=== PATIENT | female | born 2000 | race Caucasian/White ===

== ENCOUNTER 2022-01-16 16:09 | Outpatient (CLI) | payer BC, SELFPAY ==
--- NOTE | ~2022-01-16 | US_ITS ---
EXAMINATION: US OB /maternal detail DATE: 01/16/2022 17:11 INDICATION: Second trimester anatomic survey TECHNIQUE: Real-time ultrasound of the pelvis was performed. COMPARISON: None. FINDINGS: There is a single living fetus in breech presentation. The placenta is posterior. heart rate is 165 beats per minute (bpm). cardiac activity and movement are noted. The amniotic fluid index is subjectively normal. The following anatomy was identified as normal: 4 chamber heart 3 vessel cord cord insertion kidneys urinary bladder stomach spine diaphragm ventricles cisterna magna cerebellum The following biometric data were obtained: Biparietal diameter (BPD): 4.0 cm; head circumference (HC): 15.0 cm; abdominal circumference (AC): 13 .0 cm; femur length (FL): 2.7 cm. These measurements are concordant. Estimated weight is 239 g +/- 35 g, which correlates with the 5th percentile when 06/08/2022 is used as estimated date of delivery. As single measurements, these parameters are each equal to the following estimated gestational ages w ith ranges of +/- 2 standard deviations: BPD: 18 weeks 1 days +/- 1 weeks 1 days. HC: 18 weeks 1 days +/- 1 weeks 3 days. AC: 18 weeks 4 days +/- 2 weeks 0 days. FL: 18 weeks 3 days +/- 1 weeks 6 days. estimated gestational age based solely on measurements from this exam is 18 weeks 2 days +/- 1 weeks 2 days. IMPRESSION: 1. Single living fetus in breech presentation. 2. Estimated weight is 239 g +/- 35 g, which correlates with the 5th percentile when 06/08/2022 is used as estimated date of delivery. Reviewed, dictated and finalized at location F. IMPRESSION: 1. Single living fetus in breech presentation. 2. Estimated weight is 239 g +/- 35 g, which correlates with the 5th perc entile when 06/08/2022 is used as estimated date of delivery.
== END 2022-01-16 16:10 | disposition home or self-care (01) ==
PROVIDERS: PCP Obstetrics & Gynecology Gynecologic Oncology; Visit Provider Obstetrics & Gynecology Gynecologic Oncology
DX: Z36.9 Encounter for antenatal screening, unspecified (principal)
CPT/HCPCS: 76805

== ENCOUNTER 2023-12-05 10:07 | Emergency (ER) | payer BC, SELFPAY ==
[2023-12-05 10:29] VITALS: BP 111/69; PULSE 113; RESP 18; TEMP 36.4; O2SAT 99
--- NOTE | 2023-12-05 10:40 | ED.URI ---
HPI - URI/Sore Throat General Chief Complaint: Upper Respiratory Infection Stated Complaint: sorethroat,congestion Source: patient Mode of arrival: ambulatory Limitations: no limitations History of Present Illness HPI Narrative: 23-year-old female presents to [facility] with complaints of sore throat, bilateral ear pressure, nasal congestion and dry cough for the past 2 days. Patient has been taking [id number] allergy medication, cold medications and Tylenol with minimal relief. Patient reports that her daughter was recently diagnosed with influenza and an ear infection and was being treated with steroids and an antibiotic. Patient is a nonsmoker. Patient denies recent travel. Patient denies fever, body aches, chills, nausea vomiting or diarrhea. MD elicited complaint: cough, sore throat and nasal congestion Onset (ago): day(s) (2) Exacerbating factors: nothing Relieving factors: nothing Context: sick contacts Treatments prior to arrival: cold medicine Related Data Home Medications Medication Instructions Recorded Confirmed norethindrone 1 mg-ethinyl tablet 12/05/23 estradiol 20 mcg (21)-iron 75 mg (7) tablet ([place] Fe 08/15 (28)) Allergies Allergy/AdvReac Type Severity Reaction Status Date / Time Penicillins Allergy Rash Verified 12/05/23 10:25 Review of Systems Constitutional: Constitutional: Denies body ache(s), Denies chills, Denies fatigue and Denies fever(s) ENT: Denies vertigo, Denies dizziness, Denies ear discharge, Reports otalgia, Denies headache(s), Reports nasal congestion and Denies nasal discharge Cardiovascular: Cardiovascular: Denies chest pain Respiratory: Respiratory: Denies chest congestion, Reports cough, Denies pain on inspiration, Denies pain with cough and Denies dyspnea Gastrointestinal: Gastrointestinal: Denies heartburn, Denies nausea and Denies vomiting Integumentary/Breasts: Skin/Breast: Denies pruritus Allergic/Immunologic: Allergic/Immunologic: Denies urticaria, Denies itchy eyes, Denies lip swelling and Denies throat swelling PMFSH Comments At time of signature, I agree with nursing past medical, surgical, social and family history. There is no relevant family history pertinent to the presenting complaint. Exam Const: General: cooperative, healthy appearing, comfortable, no acute distress, well developed and alert HENMT: Head: normal to inspection Ears: hearing grossly normal bilaterally, external ears normal and TM's normal bilaterally Face/Nose/Sinus: Normal external nose present, No nasal discharge present and Other nasal findings present (Moderate bilateral nasal congestion) Face and sinus: normal facial exam Mouth: Yes Normal oral and palatal mucosa present and Yes lip normal Teeth and gingiva: dentition normal Throat: posterior oropharynx normal and uvula midline Eyes: General: appearance normal, both eyes and all related structures Neck: Neck: normal visual inspection, full ROM and no lymphadenopathy Lymphatic: no lymphadenopathy noted Resp: Effort & Inspection: normal respiratory effort, able to speak in complete sentences, normal respiratory pattern, no audible wheezes, no cough and respiratory effort not decreased Auscultation: clear to auscultation bilaterally Cardio: Jugular venous distension: no JVD Rate: regular rate Rhythm: regular rhythm Skin: General skin exam: normal color and no rashes or lesions noted Neuro: General: oriented to person, gait normal and moves all extremities Extrem: General: normal to inspection and full ROM Psych: Appearance: grossly normal and well kempt Mental Status: mental status grossly normal Speech and movement: Normal speech and movement present Affect: normal affect Attitude: cooperative Thought process: Normal thought process present Course Course Level of Care: Express Care Visit Vital Signs Vital signs: Vital Signs Temperature 36.4 C 12/05/23 10:29 Pulse Rate 113 H 12/05/23 10:29
== END 2023-12-05 10:50 | disposition home or self-care (01) ==
PROVIDERS: Emergency Provider Nurse Practitioner Family
DX: J06.9 Acute upper respiratory infection, unspecified (principal)
CPT/HCPCS: 87081; 87880; 99213; G0463

== ENCOUNTER 2025-02-28 12:35 | Emergency (ER) | payer BC, SELFPAY ==
[2025-02-28] VITALS (7 sets, daily range): BP systolic 117–136; BP diastolic 84–93; PULSE 62–136; RESP 15–26; TEMP 36.8; O2SAT 17–100
--- NOTE | ~2025-02-28 | US_ITS ---
EXAMINATION: US pelvic complete INDICATION: 2 weeks. Vaginal bleeding. Evaluate for retained products of conception. Comparison:No prior studies for comparison. TECHNIQUE: Multiple transabdominal and endovaginal sonographic images of the pelvis performed. FINDINGS: The uterus measures 11.1 x 5.3 x 7 cm. The endometrial complex measures 24 mm. Endometrium is thickened and heterogeneous. There is internal vascularity. The right ovary is not visualized. Left ovary unremarkable measuring 3 x 2.1 x 2.6 cm. There is no free fluid in the pelvis. There are no abnormal masses seen on either side. IMPRESSION: 1. Thickened heterogeneous endometrium with internal vascularity measuring 2.4 cm, compatible with re tained products of conception. Reviewed, dictated and finalized at location A. IMPRESSION: 1. Thickened heterogeneous endometrium with internal vascularity measuring 2.4 cm, compatible with retained products of conception.
--- OUTSIDE RECORDS SUMMARY | 2025-02-28 12:40 | XMS_ITS | Encounter Summary ---
Author Organization [facility] Healthcare Address [address] [place] [address] Care Team Providers Care Photography Editor Name Role Phone Mehreen Saleem NP Primary Care Provider [phone] Encounter Details Date Type Department Care Team (Latest Contact Info) Description 01/27/2025 Results Follow-Up [facility] [address] [place] [id number] Jorge L Black MD [phone] [address] Group B streptococcal culture Vaginal/Rectal Vaginal Social History Tobacco Use Types Packs/Day Years Used Date Smoking Tobacco: Never Smokeless Tobacco: Never [facility] Utilities Answer Date Recorded In the past 12 months has [employer] electric, gas, oil, or water company threatened to shut off services in your home? No 01/25/2025 Social Connection and Isolat ion Panel [NHANES] Answer Date Recorded In a typical week, how many times do you talk on the phone with family, friends, or neighbors? More than three times a week 01/25/2025 How often do you get togethe r with friends or relatives? More than three times a week 01/25/2025 How often do you attend chur ch or jew services? Never 01/25/2025 Do you belong to any clubs o r organizations such as baptist groups, unions, fraternal or athletic groups, or school groups? No 01/25/2025 How often do you attend meet ings of the clubs or organizations you belong to? Never 01/25/2025 Are you , , di vorced, , never , or living with a partner? 01/25/2025 Overall Financial Resource Strain (CARDIA) Answe r Date Recorded How hard is it for you to pa y for the very basics like food, housing, medical care, and heating? Not hard at all 01/25/2025 PHQ-2 Answer Date Recorded PHQ-2 Total Score (If total score is 3 or more points, staff should administer the PHQ-9) 0 01/24/2025 [facility] - Occupational Stress Questionnaire Answer Date Recorded Do you feel stress - tense, restless, nervous, or anxious, or unable to sleep at night because your mind is troubled all the time - these days? To some extent 07/04/2024 Hunger Vital Sign Answer Date Recorded Within the past 12 months, y ou worried that your food would run out before you got the money to buy more. Never true 01/26/20 25 Within the past 12 months, t he food you bought just didn't last and you didn't have money to get more. Never true 01/25/2025 PRAPARE - Transportation Answer Date Re corded In the past 12 months, has l ack of transportation kept you from medical appointments or from getting medications? No 08/2024 In the past 12 months, has l ack of transportation kept you from meetings, work, or from getting things needed for daily living? No 01/25/2025 Housing Stability Vital Sign Answer Colin e Recorded In the last 12 months, was t here a time when you were not able to pay the mortgage or rent on time? No 05/21/2022 In the last 12 months, how many places have you lived? 1 05/21/2022 In the last 12 months, was t here a time when you did not have a steady place to sleep or slept in a group home (including now)? No 05/21/2022 Ragan Depression Scale Answer Date Recorded Ragan Depression Scale Total 6 06/30/2022 The thought of harming myself has occurred to me . Never 06/30/2022 PHQ-9 Answer Date Recorded PHQ-9 Total Score 0 01/24/2025 Housing Stability Vital Sign Answer Colin e Recorded In the last 12 months, was t here a time when you were not able to pay the mortgage or rent on time? No 01/25/2025 In the past 12 months, how m any times have you moved where you were living? 1 01/25/2025 At any time in the past 12 m [facility], were you homeless or living in a group home (including now)? No 01/25/2025 Personal Safety Answer Date Recorded Have you ever been in or are you currently in a harmful physical or emotional relationship or is someone making you feel afraid or unsafe? Denies 01/27/2025 Comments Yes Sex and Gender Information Value Date Recorded Sex Assigned at Not on file Legal Sex Female 5:21 PM CDT Gender Identity Female 03/04/2022 5:58 PM CDT Sexual Orientation Not on file documented as of this encounter Plan of Treatment Not on file documented as of this encounter Visit Diagnoses Not on filedocumented in this encounter Care Teams Photography Editor Relationship Specialty Start Date End Date Mehreen Saleem NP [address] [address] PCP - General Family Medicine 12/22/23 documented as of this encounter
--- OUTSIDE RECORDS SUMMARY | 2025-02-28 12:40 | XMS_ITS | Referral Summary ---
Author Organization [facility] Address [address] [place] [address] Care Team Providers Care Acid Conditioner Name Role Phone Mehreen Saleem NP Primary Care Provider [phone] Encounters Date Type Department Care Team Description 02/11/2025 8:01 PM CDT - 02/14/2025 11:29 AM CDT Hospital Encounter [address] [phone] Jorge L Black MD Gray-Swain, Margaret Rosanna, MD Whelan, Victoria Conway, MD Discharge Disposition: Discharge to home or self care 02/12/2025 12:51 AM CDT Anesthesia Event [address] [phone] Vielka Navarrete MD Lee, Christopher Allen, MD 02/09/2025 11:30 AM CDT Clinical Support [facility] Obstetrics and Gynecology [address] [place] [phone] 02/09/2025 11:15 AM CDT Office Visit [facility] Obstetrics and Gynecology [address] [place] [address] Floor [address] [place] [phone] Supervision of other normal , antepartum (Primary Dx) 02/01/2025 9:00 AM CDT Office Visit [facility] Obstetrics and Gynecology [address] [place] [address] Floor [address] [place] [phone] Supervision of other normal , antepartum (Primary Dx) 01/27/2025 Results Follow-Up [address] [phone] Jorge L Black MD Group B streptococcal culture Vaginal/Rectal Vaginal 01/27/2025 5:11 PM CDT - 01/27/2025 8:03 PM CDT Hospital Encounter [address] [phone] Jorge L Black MD Discharge Disposition: Discharge to home or self care 01/26/2025 11:58 AM CDT - 01/26/2025 12:31 PM CDT Hospital Encounter [address] [phone] Jorge L Black MD Discharge Disposition: Discharge to home or self care 01/24/2025 6:40 AM CDT - 01/25/2025 11:49 AM CDT Hospital Encounter [address] [phone] Tiny Quezada MD Chawla, Aneesh Surya, MD No leakage of amniotic fluid into vagina (Primary Dx) Discharge Disposition: Discharge to home or self care 01/24/2025 8:50 AM CDT Ancillary Procedure [address] [phone] 01/19/2025 12:00 PM CDT Clinical Support [facility] Obstetrics and Gynecology [address] [place] [address] Outpatient Health [address] [place] [address] 01/19/2025 11:45 AM CDT Office Visit [facility] Obstetrics and Gynecology [address] [place] [address] 7th Floor [address] [place] [address] Supervision of other normal , antepartum (Primary Dx) 01/19/2025 10:45 AM CDT - 01/19/2025 11:59 PM CDT Hospital Encounter [facility] - Ultrasound [address] [facility], 7th Floor, [address] [facility] [place] [address] Previous baby with growth restriction Discharge Disposition: Discharge to home or self care 01/05/2025 10:00 AM CDT Office Visit [facility] Obstetrics and Gynecology [address] [place] [address] 7th Floor [address] [place] [address] Supervision of other normal , antepartum (Primary Dx); 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; 33 weeks gestation of 12/25/2024 Results Follow-Up [address] [phone] Jorge L Black MD US Ob Follow Up, US Ob Follow Up 12/22/2024 11:15 AM CDT Office Visit [facility] Obstetrics and Gynecology [address] [place] [address] 7th Floor [address] [place] [phone] Supervision of other normal , antepartum (Primary Dx) 12/22/2024 9:58 AM CDT - 12/22/2024 11:59 PM CDT Hospital Encounter [facility] - Ultrasound [address] [place] [address], 7th [facility], [address] [place] [address] Previous baby with growth restriction Discharge Disposition: Discharge to home or self care 12/08/2024 9:29 AM CDT - 12/08/2024 11:10 AM CDT Hospital Encounter [address] [phone] Tiny Quezada MD Discharge Disposition: Discharge to home or self care 12/08/2024 Telephone [facility] Obstetrics and Gynecology [address] [place] [address] 7th Floor [address] [place] [phone] Piyush Herrera RN OB concern from Last 3 Months Allergies Active Allergy Reactions Criticality Noted Date Comments Penicillins Rash Medium 01/30/2022 Medications PNV no.95/ferrous fum/folic ac ( ORAL) Take by mouth Active albuterol HFA (PROVENTIL HFA,VENTOLIN HFA,PROAIR HFA) 90 mcg/actuation inhalerIndicatio ns:Supervision of other normal , antepartum,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 Inhale 2 puffs every 6 (six) hours as needed for wheezing 1 each 1 01/06/20 25 026 Active acetaminophen 500 mg capsuleIndicatio ns:Pain Take 2 capsules (1,000 mg total) by mouth every 6 (six) hours as needed for pain 60 tablet 02/15/20 25 Active docusate sodium (COLACE) 100 mg capsuleIndicatio ns:constipation, Stool Softener Take 1 capsule (100 mg total) by mouth 2 (two) times a day as needed for constipation 30 capsule 02/15/20 25 Active ibuprofen (ADVIL,MOTRIN) 600 mg tabletIndication s:Cramps Take 1 tablet (600 mg total) by mouth every 6 (six) hours as needed for pain 60 tablet 02/15/20 25 Active polyethylene glycol (MIRALAX) 17 gram/dose bulk powder Take 17 g by mouth daily as needed (consitpation) 289 g 02/15/20 25 Active acetaminophen 500 mg capsuleIndicatio ns:Fever,Pain Take 2 capsules (1,000 mg total) by mouth every 6 (six) hours as needed for pain 60 tablet 05/22/20 22 025 Discontin ued(Stop Taking at Discharge ) Active Problems Problem Noted Date Diagnosed Date Encounter for routine follow-up 02/12 Overview (02/14/2025): # ID: Afebrile. No signs/symptoms of infection. # Heme: Hgb 11.7> EBL 250 mL. Hemodynamically stable. # CV/Pulm: Vital signs stable, within normal limits. #Childhood Asthma: Reports asymptomatic for years. Not currently on albuterol. # GI/: Tolerating PO. Voiding spontaneously. #Raynauds: On conservative management. Continue to monitor. # Pain: Controlled with above regimen. # MOF: Plans to formula feed. Urine drug screen not indicated. Patient informed of results: N/A. # MOC: OCPs at 6w as bridge to vasectomy. # Post DVT prophylaxis: The patient has the following MAJOR risk factors none and the following MINOR risk factors none. SCDs will be ordered for VTE prophylaxis . # Disposition: Follow up task not sent. Desires discharge home today. Normal labor 02/11/2025 Overview (02/11/2025): Jayme Angel is a 24 y.o. female at 38w2d who is dated by L=1 and is being admitted for labor. Admit to L&D: Labs: CBC and T&S pending. Expectant management of labor until reaches active labor. FWB: Continuous monitoring. tracing category I. ID: 3rd trimester HIV (>28 wga) negative on 01/24. GBS negative on 01/24. RPR on admission: pending. History of genital HSV or HSV 1/2 seropositivity: No. Membrane Status: Likely intact, patient complaining of small LOF @ 1815. Unclear pooling on exam, ferning/Nitrazine negative. Bag appreciated intact upon SVE. Indications for UDS: none. Verbal consent obtained for UDS: Not indicated. MOF: Plans to formula feed. Urine drug screen not indicated. Patient informed of results: N/A. MOC: OCPs at 4w as bridge to vasectomy. Pain management: Desires epidural. Post DVT prophylaxis: The patient has the following MAJOR risk factors none and the following MINOR risk factors none. SCDs will be ordered for VTE prophylaxis . c/b: #Hx FGR: G1 w/ FGR to 6%ile. Induced at 37w for elevated UA dopplers. S/p growth ultrasounds this w/ EFW wnl. #Raynauds: On conservative management. Continue to monitor. #Childhood Asthma: Reports asymptomatic for years. Not currently on albuterol. #Resovled UTD: UTD noted @ 27w US, resolved upon 31w ultrasound. uterine contractions 01/24/2025 Overview (01/24/2025): Jayme Angel is a 24 y.o. female at 35w5d who is dated by L=1 and is being admitted for contractions Admit to L&D: Labs: CBC and T&S pending. Expectant management of labor. FWB: Continuous monitoring. tracing category II, reassured by moderate variability and accels. ID: 3rd trimester HIV (>28 wga) pending on 01/24/25. GBS unknown, started on ancef, test pending 01/24/25. RPR on admission: pending. History of genital HSV or HSV 1/2 seropositivity: No. Membrane Status: intact. Indications for UDS: none. Verbal consent obtained for UDS: Not indicated. MOF: Plans to formula feed. Urine drug screen not indicated. Patient informed of results: N/A. MOC: partner plans to have vasectomy, POPs as bridge. Pain management: Desires epidural. Post DVT prophylaxis: The patient has the following MAJOR risk factors none and the following MINOR risk factors none. SCDs will be ordered for VTE prophylaxis . complicated by: #hx FGR in G1 #asthma in childhood #Raynaud's #UTD-resolved @ 31wks Leakage of amniotic fluid 10/16/2024 Nausea and vomiting in 07/18/2024 Overview (07/18/2024): Taking Zofran PRN Plan Continue Zofran, refill sent to pharmacy Supervision of other normal , antepartu m 06/28/2024 Overview (02/01/2025): -h/o FGR with elevated Dopplers (delivered at 37 weeks) -per MFM: serial growth ultrasounds starting at 24 weeks every 4 weeks -asthma -raynaud's -UTD noted @ 27wks, resolved @ 31 wks -APU adm 01/24-01/25 for tPTL, 10/18/-3 > 11/18/-3, ALPS BMZ 01/25-01/26 -IOL sched 02/16/25 @ 0800, pt aware [x] Initial BMI: 23 [x] Labs: Lab Results Component Value Date ABORH A Positive 05/19/2022 IDCOOMB Negative 05/19/2022 [id number] Nonreactive 04/29/2022 LABRPR NON-REACTIVE 08/16/2024 RUBELIGG 2.83 08/16/2024 HEPBSAG NON-REACTIVE 08/16/2024 [x] Genetic Screening: nml NIPT [x] Baby ASA: yes @ 12 weeks [x] 1hr GCT at 24-28wks: NML 121 [x] Tdap (27-36wks): 11/24/24 [] Flu Shot: [] RSV Vaccine in season (32.0-36.6): out of season [] COVID vaccine: [] Rhogam (if Rh neg): n/a A+ [x] GBS at 36 wks: Negative 01/24/2025, expires 02/28/2025--repeat if anticipate still at that time [x] FORMULA feeding [x] control method: OCP as bridge to vasectomy, BS if c/s [x] 39 weeks discussion of IOL vs. Expectant management: 39wk IOL [x] Mode of delivery: anticipate [] For C/S bottle of CHG 4% and hand out provided @ 36wks Girl Vanna, FORMULA feeding, [facility] peds Teaching: [x] 1st visit [x] 28-30 week [x] 36 week HPV Vaccine counseling (<=26 yo): [] Completed vaccine series [] To be ordered prior to discharge on [] To receive at visit [] Declined s/p counseling [] Not applicable Supervision of high-risk , first derrell victoria 06/27/2024 Overview (07/15/2024): SEROLOGIES NEEDED - to be collected via primary team, Rodrigo [] Co-management vs. [] Full MFM Care; [] Red Team [] Blue Team - consult only Referring Provider: Self Referral. Prior MFM pt. [] or Medicare Insurance [x] Dating Criteria: LMP 05/19/24 with ALMA 02/23/25 [] Labs: Rh [ ], Ab [ ], Rubella [ ], HIV [ ], HepBSAg [ ], HepBSAb [ ], HepBCAb [ ], RPR [ ], Hep C [ ], Varicella [ ], GC/CT [ ] [] Aneuploidy Screening: planning NIPT with primary [] Carrier Screening: to be discussed [x] Hgb electrophoresis: n/a [] CBC/Hgb: [x] Early 1hr GTT (if indicated): n/a [] UCx: to be obtained via primary [x] Pap: 12/22/23: NILM [] LD ASA (if indicated): 2nd Trimester [] Anatomy ultrasound: [] CBC/1hr gtt at 24-28wks: [] Rhogam at 28 wks (if Rh neg): 3rd Trimester [] CBC/HIV/RPR/T&S: [] GBS: [] GC/CT (if indicated): [] testing: Counseling [] MOD: [] Place of delivery: [] Epidural: [] Accepts Blood Products: [] Stop ASA: [] MOC: [] Method of feeding: [] Structural [employer] Shop Supervisor (specifically which provider): [] PP Depression Discussed: [] PP visits scheduled: Vaccines [] Flu Shot (Mar-Jun): [] COVID vaccine: [] Tdap (27-36wks): [] RSV vaccine (32-36wks): [] PP HPV vaccine counseling (<=26 yo): Encounter for annual physical exam 03/04/2024 Assessment & Plan (03/04/2024 10:59 AM CDT): -Recommended: Healthy diet. Avoiding junk food/fast food. -30 minutes of exercise most days of the week. Increase to 45 minutes for weight loss. Health Maintenance reviewed - up-to-date, discussed getting labs. Patient had labs being 1st and is anticipating 2nd . -Influenza vaccine every year Recommend: - Topic Date Due Pneumococcal vaccine <65 (1 of 2 - PCV) Never done Varicella Vaccines (1 of 2 - 13+ 2-dose series) Never done HPV Vaccines (1 - 3-dose series) Never done -F/u in 1 year for Annual PE or sooner if needed Raynaud's disease 12/11/2022 Overview (07/18/2024): History No history of skin thickening, ulceration, arthralgias, myalgias, dysphagia,or cardiopulmonary abnormalities to suggest secondary Raynauds Counseling Raynaud phenomenon (RP) is an exaggerated vascular response to cold temperature or emotional stress, manifested clinically by sharply demarcated color changes of the skin of the digits thought to be related to abnormal vasoconstriction of digital arteries. We reviewed the patient's history, and in patients without additional features consistent with secondary cause, course is typically benign. Occasionally RP can cause difficulties with . Treatment options include methods to prevent or decrease cold exposure, avoidance of vasoconstrictive drugs/nicotine that could precipitate symptoms, or nifedipine. Plan/Recommendations Routine care, supportive care Previous baby with growth restriction 11/24 Overview (07/18/2024): History - Patient had FGR in previous (6%ile) w/ normal amniocentesis. She developed elevated dopplers and was induced at 37 weeks' gestation. Her delivery was uncomplicated. Cousneling Women who have had a prior child with growth restriction have approximately at 20% risk of recurrence in future pregnancies. There are currently no therapies recommended solely for prevention of recurrent FGR, however there is some conflicting evidence supporting the benefit of aspirin 81mg, and this is recommended in the presence of additional risk factors for preeclampsia. Plan: [] Routine anatomy US at 18-20w [] Serial growth ultrasounds starting at 24 weeks, every 4 weeks Resolved Problems Problem Noted Date Diagnosed Date Resolved Date Mild intermittent asthma without complication 12/12/1903/04/2024 Encounter for routine follow-up 05/19/2022 12/11/2022 Overview (05/22/2022): # ID: Afebrile. No signs/symptoms of infection. #COVID-19: Test not indicated # Heme: EBL 250 mL. No symptoms acute blood loss anemia. Admission Hgb 10.8. # CV/Pulm: Vital signs stable, within normal limits. # GI/: Tolerating PO. Voiding spontaneously. # Pain: Controlled with above regimen. # Post DVT prophylaxis: The patient has the following MAJOR risk factors none and the following MINOR risk factors none. SCDs ordered for VTE prophylaxis. # MOC: Desires IUD at visit, POPs as bridge method. # MOF: Formula feeding. Urine drug screen not indicated. Patient informed of results: N/A. # COVID Vaccination Status: Previously received , declines booster # Disposition: Follow up with [facility]- visits scheduled. Desires discharge home today. Poor growth affecting management of mother, antepartum 01/29/2022 12/11/2022 Overview (05/16/2022): Previously counseled S/p normal amnio Plan: - activity assessment - q3 week growth US - last 05/16 w/ continued IUGR - 03/13/2022 testing initiated - Weekly dopplers/BPP, weekly NST - now complete - Delivery is recommended at 37 weeks given elevated Dopplers; scheduled for 05/19, pt aware Assessment & Plan (04/25/2022 12:44 PM CDT): Previously counseled S/p normal amnio Plan: - activity assessment - q3 week growth US - 03/13/2022 testing initiated - Weekly dopplers/BPP, weekly NST - Delivery is recommended at 37 weeks given elevated Dopplers; schedule at this time. If this is isolated elevation, can consider pushing back. Assessment & Plan (02/20/2022 10:39 AM CDT): Reviewed risks and benefits of testing. Reviewed that if baby does not pass that testing it could result in a hospital admission and in worst case scenario a delivery. Reviewed that testing was designed for 32 weeks for reassurance that stillbirth risk is low. Discussed movement is a good form of testing. Following counseling pt and her would like to only do dopplers until her next growth. If dopplers become irregular of if she no longer feels reassuring movement will move towards testing before he next growth. Supervision of high-risk pre gnancy, unspecified trimester 01/29/2022 12/11/2022 Overview (05/16/2022): [x] Full MFM Care; [] Red Team [x] Blue Team GEENA as of 02/20- email sent to financial counselors for global Referring Provider: Marisol Reyes [phone] [] or Medicare Insurance [x] Dating Criteria: LMP 09/02/21 with ALMA 06/09/22 [x] Labs: Rh [A+], Ab [negative], Rubella [immune], HIV [non-reactive], HepBSAg [non-reactive], RPR [non-reactive], Hep C [non-reactive], Varicella [not done], GC/CT [Neg/Neg] [x] Genetic Screening: s/p normal amnio [x] CBC/Hgb 12.5/36.9/plt 280 [x] UCx: 10/31/21 no growth [x] Pap: 12/31/20 negative [] LD ASA (if indicated) starting at 12 weeks: [] EPDS [ ]; PNBHS referral (if indicated) 2nd Tri Labs: [x] Anatomy ultrasound: [x] CBC: 11.6/34.6/260K 1hr gtt at 24-28wks: 133 Pt aware via my chart message [x] Flu Shot (Mar-Jun): received 05/09 [x] Tdap (27-36wks): received 04/03/22 LV [x] COVID Vaccine: s/p vaccination but no booster. 3rd Tri Labs: [x] CBC: 11.5/33.7/253K HIV: NR RPR: NR /T&S: A+ (negative) [x] GBS: Negative on 05/09 (PCN allergic, sensitivities ordered) [x] GC/CT (if indicated): Neg/Neg on 02/20/2022 [] COVID testing: [x] testing: twice weekly for FGR - complete Counseling [x] MOD: Scheduled for IOL at 37 weeks on 05/19 at 6am, letter sent - done 05/01 bnw [x] Place of delivery: [facility] [x] MOC: considering IUD post-placental vs. 6wk PPV [x] Method of feeding: formula [] Structural Steel Shop Supervisor: [] PP Depression Discussed: Assessment & Plan (04/25/2022 12:45 PM CDT): RTC 2 wks Weekly BPPs/UA Dopplers, NSTs Delivery scheduled at 37 wks for now [x] Full MFM Care; [] Red Team [x] Blue Team GEENA as of 02/20- email sent to financial counselors for global Referring Provider: Marisol Reyes [phone] [] or Medicare Insurance [x] Dating Criteria: LMP 09/02/21 with ALMA 06/09/22 [x] Labs: Rh [A+], Ab [negative], Rubella [immune], HIV [non-reactive], HepBSAg [non-reactive], RPR [non-reactive], Hep C [non-reactive], Varicella [not done], GC/CT [Neg/Neg] [x] Genetic Screening: s/p normal amnio [x] CBC/Hgb 12.5/36.9/plt 280 [x] UCx: 10/31/21 no growth [x] Pap: 12/31/20 negative [] LD ASA (if indicated) starting at 12 weeks: [] EPDS [ ]; PNBHS referral (if indicated) 2nd Tri Labs: [x] Anatomy ultrasound: [x] CBC: 11.6/34.6/260K 1hr gtt at 24-28wks: 133 Pt aware via my chart message [] Flu Shot (Mar-Jun): [x] Tdap (27-36wks): received 04/03/22 LV [x] COVID Vaccine: s/p vaccination but no booster. 3rd Tri Labs: [] CBC/HIV/RPR/T&S: ordered [] GBS: [x] GC/CT (if indicated): Neg/Neg on 02/20/2022 [] COVID testing: [x] testing: twice weekly for FGR Counseling [x] MOD: Anticipate [x] Place of delivery: [facility] [] MOC: [] Method of feeding: [] Structural Steel Shop Supervisor: [] PP Depression Discussed: Immunizations Immunization Administration Dates Next Due Influenza, Quadrivalent, Catalina l Culture-based MDCK, Preservative Free, Antibiotic Free, Intramuscular 05/09/2022 Influenza, Unspecified 03/04/2024(Deferr ed: Patient Refused),07/27/2023(Deferred: Patient Refused),07/27/2022(Deferred: Patient Refused) Tdap 11/24/2024,04/03/2022 Varicella 01/05/2023 Social History Tobacco Use Types Packs/Day Years Used Date Smoking Tobacco: Never Smokeless Tobacco: Never Tobacco Cessation:Counseling Given: Not Answered [facility] Utilities Answer Date Recorded In the past 12 months has th e [employer], gas, oil, or water company threatened to shut off services in your home? No 02/13/2025 Social Connection and Isolat ion Panel [NHANES] Answer Date Recorded In a typical week, how many times do you talk on the phone with family, friends, or neighbors? More than three times a week 02/13/2025 How often do you get togethe r with friends or relatives? More than three times a week 02/13/2025 How often do you attend chur ch or baptism services? Never 02/13/2025 Do you belong to any clubs o r organizations such as hindu groups, unions, fraternal or athletic groups, or school groups? No 02/13/2025 How often do you attend meet ings of the clubs or organizations you belong to? Never 02/13/2025 Are you , , di vorced, , never , or living with a partner? 02/13/2025 Overall Financial Resource Strain (CARDIA) Answe r Date Recorded How hard is it for you to pa y for the very basics like food, housing, medical care, and heating? Not hard at all 02/13/2025 PHQ-2 Answer Date Recorded PHQ-2 Total Score (If total score is 3 or more points, staff should administer the PHQ-9) 0 01/24/2025 [facility] - Occupational Stress [...] the money to buy more. Never true 02/14/20 25 Within the past 12 months, t he food you bought just didn't last and you didn't have money to get more. Never true 02/13/2025 PRAPARE - Transportation Answer Date Re corded In the past 12 months, has l ack of transportation kept you from medical appointments or from getting medications? No 01/25 In the past 12 months, has l ack of transportation kept you from meetings, work, or from getting things needed for daily living? No 02/13/2025 Housing Stability Vital Sign Answer Colin e [...] place to sleep or slept in a detention (including now)? No 05/21/2022 [place] Depression Scale Answer Date Recorded [place] Depression Scale Total 6 06/30/2022 The thought of harming myself has occurred to me . Never 06/30/2022 PHQ-9 Answer Date Recorded PHQ-9 Total Score 0 01/24/2025 Housing Stability Vital Sign Answer Colin e Recorded In the last 12 months, was t here a time when you were not able to pay the mortgage or rent on time? No 02/13/2025 In the past 12 months, how m any times have you moved where you were living? 0 02/13/2025 At any time in the past 12 m [facility], were you homeless or living in a detention (including now)? No 02/13/2025 Personal Safety Answer Date Recorded Have you ever been in or are you currently in a harmful physical or emotional relationship or is someone making you feel afraid or unsafe? Denies 02/11/2025 Comments No Sex and Gender Information Value Date Recorded Sex Assigned at Not on file Legal Sex Female 5:21 PM CDT Gender Identity Female 03/04/2022 5:58 PM CDT Sexual Orientation Not on file Last Filed Vital Signs Vital Sign Reading Time Taken Comments Blood Pressure 107/66 02/14/2025 7:35 AM CDT Pulse 71 02/14/2025 7:35 AM CDT Temperature 36.4 C (97.5 F) 02/14/2025 7:35 AM CDT Respiratory Rate 18 02/14/2025 7:35 AM CDT Oxygen Saturation 92% 02/14/2025 7:35 AM CDT Inhaled Oxygen Concentration - - Weight 73.3 kg (161 lb 11.2 oz) 02/11/2025 8:00 PM CDT Height 162.6 cm (5' 4.02) 02/11/2025 8:00 PM CD T Body Mass Index 27.74 02/11/2025 8:00 PM CDT Plan of Treatment Not on file Procedures Procedure Name Priority Date/Time Associated Diagnosis Comments OH AN PROCEDURE PLACEHOLDER Routine 02/12/2025 1:27 AM CDT EGFR STAT 02/11/2025 10:06 PM CDT BASIC METABOLIC PANEL STAT 02/11/2025 10:06 PM CDT CBC WITHOUT DIFFERENTIAL STAT 02/11/2025 10:06 PM CDT TYPE AND SCREEN STAT 02/11/2025 10:06 PM CDT RPR STAT 02/11/2025 10:06 PM CDT POCT URINALYSIS (CLINITEK) Routine 02/11/2025 8:36 PM CDT POCT URINALYSIS (CLINITEK) Routine 01/27/2025 5:35 PM CDT TRICHOMONAS VAGINALIS PCR Routine 01/25/2025 6:37 AM CDT N. GONORRHOEAE/C. TRACHOMATIS AMPLIFICATION Routine 01/25/2025 6:37 AM CDT HIV 1/2 ANTIBODY PLUS P24 ANTIGEN Routine 01/24/2025 1:04 PM CDT EGFR STAT 01/24/2025 10:46 AM CDT DIFFERENTIAL AUTO STAT 01/24/2025 10: 46 AM CDT COMPREHENSIVE METABOLIC PANEL STAT 01/24/2025 10:46 AM CDT CBC WITH AUTO DIFFERENTIAL STAT 01/24/2025 10:46 AM CDT TYPE AND SCREEN STAT 01/24/2025 10:46 AM CDT GROUP B STREPTOCOCCUS CULTURE Routine 01/24/2025 10:46 AM CDT RPR STAT 01/24/2025 10:46 AM CDT POCT URINALYSIS (CLINITEK) Routine 01/24/2025 8:56 AM CDT US OB LIMITED IP Routine 01/24/2025 8:45 AM CDT No leakage of amniotic fluid into vagina POCT URINALYSIS (CLINITEK) Routine 01/24/2025 6:51 AM CDT US OB FOLLOW UP Schedule Routine, Read Routine (OP Routine) 01/19/2025 10:50 AM CDT Previous baby with growth restriction US OB FOLLOW UP Schedule Routine, Read Routine (OP Routine) 12/22/2024 9:58 AM CDT Previous baby with growth restriction POCT URINALYSIS (CLINITEK) Routine 12/08/2024 9:48 AM CDT HEPATITIS C ANTIBODY Routine 08/16/2024 10:43 AM MANAGER FINANCE Supervision of other normal , antepartum PAP WITH REFLEX TO HIGH RISK HPV Routine 12/22/2023 3:03 PM CDT Well woman exam from Last 3 Months or Most Recently Relevant to Health Maintenance Results * [place] AN PROCEDURE PLACEHOLDER (02/12/2025 1:27 AM CDT) Narrative Timi Dumont CRNA - 02/12/2025 1:27 AM CDT Timi Dumont CRNA 02/12/2025 1:28 AM Epidural Block Patient location: L&D Reason for block: primary anesthetic Staff: Supervising provider: Vielka Navarrete MD Placed by: ROBOT TECHNICIAN: Timi Dumont CRNA Procedure prep: Preprocedure checklist: patient identified, procedure contraindications assessed, procedure consent obtained, surgical consent, IV checked, risks, benefits and alternatives discussed, monitors and equipment checked and timeout performed Patient Position: sitting Procedure performed while patient: sedate with meaningful contact Monitoring: oximetry Supplemental oxygen: nasal cannula Prep solution: chlorhexadine/alcohol PPE: provider hat/mask, sterile gloves and sterile drape Skin infiltrated with lidocaine 1%: yes Epidural: Approach: midline Imaging guidance used: no Location: L3-4 Number of attempts:1 Epidural needle: Injection technique: [place] saline Needle type: Tuohy Needle gauge: 18 G Needle length: 9 cm Loss of resistance: 5 cm Catheter: Catheter type: multi-orifice. Catheter at skin depth: 10 cm Negative aspiration of blood: no Negative aspiration of CSF: no Test dose: negative Assessment: Sensory level - left: full eval pending Sensory level - right: full eval pending Events: patient tolerated procedure well with no complications Additional comments: [place]FR[place] 4.510 us Vielka Navarrete MD ANESTHESIA ORDERABLES Final Result * eGFR (02/11/2025 10:06 PM CDT) eGFR >90 >=60 mL/min/1. 73 m2 Comment: Interpretive Data Reference Interval Normal >/= 90 mL/min/1.73m2 Mildly decreased* 60 - 89 mL/min/1.73m2 Mildly to moderately decreased 45 - 59 mL/min/1.73m2 Moderately to severely decreased 30 - 44 mL/min/1.73m2 Severely decreased 15 - 29 mL/min/1.73m2 Kidney Failure < 15 mL/min/1.73m2 *Relative to young adult level Estimated glomerular filtration rate is determined by the 2020 CKD-EPI equation recommended by the National Kidney Foundation (A Unifying Approach to GFR Estimation: Recommendations of the NKF-ASK Task Force on Reassessing the Inclusion of Race in Diagnosing Kidney Disease, JASN 202). The CKD-EPI equation should not be used for patients with unstable renal function and has not been validated in children and those over 70. Current interpretive data was last reviewed 2021. Blood 02/11/2025 10:0 6 PM CDT 02/11/2025 10:17 PM CDT us Jorge L Black MD LAB BLOOD ORDERABLES Yari cholo Result [facility] Department [place] [address] * RPR Blood (02/11/2025 10:06 PM CDT) Pathologist [facility] RPR Nonreactive Nonreactive Blood 02/11/2025 10:0 6 PM CDT 02/11/2025 10:17 PM CDT Jorge L Black MD LAB MICROBIOLOGY - GENERA L ORDERABLES Final Result Performing Organization Address [facility]/ZIP Co de Phone Number [facility] Department [place] [address] * (ABNORMAL) CBC without differential (02/11/2025 10:06 PM CDT) [facility] WBC 11.84(H) 3.80 - 9.90 K/cumm Hgb 11.7(L) 11.9 - 15.5 g/dL [facility] Hct 33.3(L) 35.6 - 45.5 % [facility] Plt 214 150 - 400 K/cumm [facility] MPV 9.8 9.1 - 12.3 fL [facility] RBC 3.77(L) 3.90 - 5.20 M/cumm [facility] MCV 88.3 81.3 - 96.4 fL [facility] MCH 31.0 27.1 - 33.3 pg [facility] MCHC 35.1 32.3 - 35.7 g/dL [facility] RDW CV 13.7 11.1 - 14.9 % [facility] RDW SD 44.5 35.7 - 48.1 fL [facility] NRBC abs 0.00 0.00 - 0.01 K/cumm [facility] Blood 02/11/2025 10:0 6 PM CDT 02/11/2025 10:17 PM CDT us Jorge L Black MD LAB BLOOD ORDERABLES Yari l Result [facility] Department [place] [address] * Type and screen (02/11/2025 10:06 PM CDT) Pathologist [facility] ABO Rh A Positive Danial, indirect Negative [facility] Blood 02/11/2025 10:0 6 PM CDT 02/11/2025 10:24 PM CDT Narrative [facility] - 02/11/2025 11:20 PM CDT Has the patient had Daratumumab or Isatuximab in the past 6 months?->Unknown us Jorge L Black MD LAB BLOOD BANK TEST ORDER PRAFUL Final Result [facility] Department [place] [address] * (ABNORMAL) Basic metabolic panel (02/11/2025 10:06 PM CDT) Pathologist [facility] Sodium 138 135 - 145 mmol/L Potassium, pl 3.9 3.3 - 4.9 mmol/L [facility] Chloride 104 97 - 110 mmol/L [facility] CO2 21(L) 22 - 32 mmol/L [facility] Anion gap 13 2 - 15 mmol/L [facility] BUN 8 6 - 25 mg/dL [facility] Creatinine 0.58(L) 0.60 - 1.10 mg/dL [facility] Glucose 76 70 - 199 mg/dL [facility] Comment: Interpretive Data Fasting glucose >/= 126 mg/dl is diagnostic for diabetes. Fasting is defined as no caloric intake for at least 8 hours. Fasting glucose between 100 mg/dl to 125 mg/dl is diagnostic of prediabetes. In a patient with classic symptoms of hyperglycemia or hyperglycemic crisis, a random glucose >/= 200 mg/dl is diagnostic for diabetes. In the absence of unequivocal hyperglycemia, results should be confirmed by repeat testing. The classification and Diagnosis of Diabetes Diabetes Care 202; 46: S19-S40. Current interpretive data was last revised 2022. Calcium 9.2 8.5 - 10.3 mg/dL [facility] Blood 02/11/2025 10:0 6 PM CDT 02/11/2025 10:17 PM CDT Jorge L Black MD LAB BLOOD ORDERABLES Yari l Result Performing Organization Address [facility]/ZIP Co de Phone Number [facility] Department [place] [address] * (ABNORMAL) POCT urinalysis (Clinitek) (02/11/2025 8:36 PM CDT) Color, ur, POC Yellow Yellow Clarity, UA, POC Clear Clear [facility] Glucose, ur, POC Negative Negative [facility] Bilirubin, ur, POC Negative Negative [facility] Ketones, ur, POC Negative Negative [facility] Specific gravity, ur, POC <=1.005(A) 1.010 - 1.025 [facility] Blood, ur, POC Trace(A) Negative [facility] pH, ur, POC 6.5 [facility] Comment: Interpretive Data Urine pH is affected by diet, medications, systemic acid-base disturbances, and renal tubular function. pH may affect urinary stone formation. For example, urine pH below 6.0 may help reduce the tendency for calcium phosphate stones and pH greater than 6.0 may reduce the tendency for uric acid stone formation. Source: [facility] [employer]. Last Revised Date: 08-06-2017 Protein, ur, POC Negative Negative [facility] Urobilinogen, ur, POC 0.2 mg/dL mg/dL [facility] Nitrites, ur, POC Negative Negative [facility] Leukocyte esterase, ur, POC Negative Negative [facility] Urine 02/11/2025 8:36 PM CDT 02/11/2025 8:36 PM CDT Jorge L Black MD LAB POCT ORDERABLES - DEV ICE Final Result Performing Organization Address [facility]/ZIP Co de Phone Number [facility] Department [place] [address] * (ABNORMAL) POCT urinalysis (Clinitek) (01/27/2025 5:35 PM CDT) Color, ur, POC Yellow Yellow Clarity, UA, POC Clear Clear [facility] Glucose, ur, POC Negative Negative [facility] Bilirubin, ur, POC Negative Negative [facility] Ketones, ur, POC Negative Negative [facility] Specific gravity, ur, POC 1.010 1.010 - 1.025 [facility] Blood, ur, POC Trace(A) Negative [facility] pH, ur, POC 6.0 [facility] Comment: Interpretive Data Urine pH is affected by diet, medications, systemic acid-base disturbances, and renal tubular function. pH may affect urinary stone formation. For example, urine pH below 6.0 may help reduce the tendency for calcium phosphate stones and pH greater than 6.0 may reduce the tendency for uric acid stone formation. Source: [place] [address] Last Revised Date: 08-06-2017 Protein, ur, POC Negative Negative [facility] Urobilinogen, ur, POC 0.2 mg/dL mg/dL [facility] Nitrites, ur, POC Negative Negative [facility] Leukocyte esterase, ur, POC Negative Negative [facility] Urine 01/27/2025 5:35 PM CDT 01/27/2025 5:35 PM CDT us Jorge L Black MD LAB POCT ORDERABLES - DEV ICE Final Result [facility] Department [place] [address] * N. gonorrhoeae/C. trachomatis Amplification Urine (01/25/2025 6:37 AM CDT) C. trachomatis Not Detected Not Detected [facility] N. gonorrhoeae Not Detected Not Detected [facility] Comment: Interpretive Data This assay detects Chlamydia trachomatis and Neisseria gonorrhoeae by nucleic acid amplification testing (NAAT). This assay has been cleared by the [place] Food and Drug administration. The performance characteristics of this test have been verified by the [facility] Molecular Infectious Disease laboratory. The performance characteristics of this test have not been evaluated in individuals less than 14 years of age. Current Interpretive Data last revised 2023. Urine (None) 01/25/2025 6:37 AM CDT 01/25/2025 8:15 AM CDT Jorge L Black MD LAB MICROBIOLOGY - GENERA L ORDERABLES Final Result Performing Organization Address [facility] de Phone Number [facility] Division [place] [address] [facility] * Trichomonas vaginalis PCR Urine (01/25/2025 6:37 AM CDT) Pathologist [facility] Trichomonas DNA Not Detected Not Detected [facility] Urine 01/25/2025 6:37 AM CDT 01/25/2025 8:15 AM CDT Narrative [facility] - 01/25/2025 9:26 AM CDT Interpretive Data: This assay detects Trichomonas vaginalis by nucleic acid amplification testing (NAAT). This assay has been cleared by the [place] Food and Drug administration. The performance characteristics of this test have been verified by the [facility] Molecular Infectious Disease laboratory. Excess blood in specimens may be inhibitory and result in false negative results. The performance of this test has not been evaluated in women or individuals less than 18 years of age. Jorge L Black MD LAB MICROBIOLOGY - GENERA L ORDERABLES Final Result Performing Organization Address [facility] de Phone Number [facility] Department [place] [address] [facility] * HIV 1/2 Antibody plus p24 Antigen Blood (01/24/2025 1:04 PM CDT) [facility] HIV 1/2 ab + p24 ag Nonreactive Nonreactive Comment:Nonreactive for HIV- 1 antigen and HIV-1/HIV-2 antibodies. No laboratory evidence of HIV infection. If acute HIV infection is suspected, consider testing for HIV-1 RNA. Current interpretive data was last revised on 22. Blood 01/24/2025 1:04 PM CDT 01/24/2025 1:16 PM CDT us Jorge L Black MD LAB MICROBIOLOGY - GENERA L ORDERABLES Final Result Performing Organization Address [facility] Co de Phone Number [facility] Department [place] [address] * eGFR (01/24/2025 10:46 AM CDT) eGFR >90 >=60 mL/min/1. 73 m2 Comment: Interpretive Data Reference Interval Normal >/= 90 mL/min/1.73m2 Mildly decreased* 60 - 89 mL/min/1.73m2 Mildly to moderately decreased 45 - 59 mL/min/1.73m2 Moderately to severely decreased 30 - 44 mL/min/1.73m2 Severely decreased 15 - 29 mL/min/1.73m2 Kidney Failure < 15 mL/min/1.73m2 *Relative to young adult level Estimated glomerular filtration rate is determined by the 2020 CKD-EPI equation recommended by the National Kidney Foundation (A Unifying Approach to GFR Estimation: Recommendations of the NKF-ASK Task Force on Reassessing the Inclusion of Race in Diagnosing Kidney Disease, JASN 2020). The CKD-EPI equation should not be used for patients with unstable renal function and has not been validated in children and those over 70. Current interpretive data was last reviewed 2021. Blood 01/24/2025 10:4 6 AM CDT 01/24/2025 11:00 AM CDT us Tiny Strange NP LAB BLOOD ORDERABL ES Final Result Performing Organization Address [facility] Co de Phone Number [facility] [place] [address] * (ABNORMAL) Differential, auto (01/24/2025 10:46 AM CDT) Neutrophil abs 9.95(H) 1.50 - 6.50 K/cumm Imm gran abs 0.12(H) 0.00 - 0.10 K/cumm [facility] Lymphocyte abs 1.44 0.80 - 3.30 K/cumm [facility] Monocyte abs 0.73 0.20 - 0.80 K/cumm [facility] Eosinophil abs 0.02 0.00 - 0.50 K/cumm [facility] Basophil abs 0.03 0.00 - 0.10 K/cumm [facility] Neutrophil pct 81.0 % [facility] Comment: Interpretive Data Percent cell count reference ranges are not reported, since discordance with absolute values may lead to misinterpretation of CBC data. Current Interpretive Data was last revised on 2017. Imm gran pct 1.0 % [facility] Comment: Interpretive Data Percent cell count reference ranges are not reported, since discordance with absolute values may lead to misinterpretation of CBC data. Current Interpretive Data was last revised on 2017. Lymphocyte pct 11.7 % [facility] Comment: Interpretive Data Percent cell count reference ranges are not reported, since discordance with absolute values may lead to misinterpretation of CBC data. Current Interpretive Data was last revised on 2017. Monocyte pct 5.9 % [facility] Comment: Interpretive Data Percent cell count reference ranges are not reported, since discordance with absolute values may lead to misinterpretation of CBC data. Current Interpretive Data was last revised on 2017. Eosinophil pct 0.2 % [facility] Comment: Interpretive Data Percent cell count reference ranges are not reported, since discordance with absolute values may lead to misinterpretation of CBC data. Current Interpretive Data was last revised on 2017. Basophil pct 0.2 % [facility] Comment: Interpretive Data Percent cell count reference ranges are not reported, since discordance with absolute values may lead to misinterpretation of CBC data. Current Interpretive Data was last revised on 2017. Blood 01/24/2025 10:4 6 AM CDT 01/24/2025 11:00 AM CDT Tiny Strange ELECTRICAL LABORATORY TECHNICIAN LAB BLOOD ORDERABL ES Final Result Performing Organization Address [facility] Co de Phone Number [facility] Division [place] [address] * (ABNORMAL) CBC with auto differential (01/24/2025 10:46 AM CDT) WBC 12.29(H) 3.80 - 9.90 K/cumm Hgb 11.2(L) 11.9 - 15.5 g/dL [facility] Hct 32.5(L) 35.6 - 45.5 % [facility] Plt 199 150 - 400 K/cumm [facility] MPV 9.8 9.1 - 12.3 fL [facility] RBC 3.53(L) 3.90 - 5.20 M/cumm [facility] MCV 92.1 81.3 - 96.4 fL [facility] MCH 31.7 27.1 - 33.3 pg [facility] MCHC 34.5 32.3 - 35.7 g/dL [facility] RDW CV 13.7 11.1 - 14.9 % [facility] RDW SD 45.3 35.7 - 48.1 fL [facility] NRBC abs 0.00 0.00 - 0.01 K/cumm [facility] Blood 01/24/2025 10:4 6 AM CDT 01/24/2025 11:00 AM CDT Tiny Strange NP LAB BLOOD ORDERABL ES Final Result [facility] Department [place] [address] * Group B streptococcal culture Vaginal/Rectal Vaginal (01/24/2025 10:46 AM CDT) Report Final Report: Negative Vaginal/Rectal (Vaginal) 01/24/2025 10:46 AM CDT 01/24/2025 11:50 AM CDT Narrative [facility] - 01/26/2025 9:04 PM CDT Testing performed by [facility] Microbiology [facility] ([phone]). Tiny Strange NP LAB MICROBIOLOGY - GENERAL ORDERABLES Final Result Performing Organization Address [facility] Co de Phone Number [facility] Department [place] [address] * RPR Blood (01/24/2025 10:46 AM CDT) Pathologist [facility] RPR Nonreactive Nonreactive Blood 01/24/2025 10:4 6 AM CDT 01/24/2025 11:00 AM CDT us Tiny Strange NP LAB MICROBIOLOGY - GENERAL ORDERABLES Final Result Performing Organization Address [facility] de Phone Number [facility] Department [place] [address] * Type and screen (01/24/2025 10:46 AM CDT) Pathologist [facility] Danial, indirect Negative ABO Rh A Positive [facility] Blood 01/24/2025 10:4 6 AM CDT 01/24/2025 11:19 AM CDT Narrative [facility] - 01/24/2025 12:18 PM CDT Has the patient had Daratumumab or Isatuximab in the past 6 months?->Unknown us Tiny Strange NP LAB BLOOD BANK CURLY T ORDERABLES Final Result Performing Organization Address [facility] [place] [address] * (ABNORMAL) Comprehensive metabolic panel (01/24/2025 10:46 AM CDT) [facility] Sodium 139 135 - 145 mmol/L Potassium, pl 4.0 3.3 - 4.9 mmol/L [facility] Chloride 108 97 - 110 mmol/L [facility] CO2 21(L) 22 - 32 mmol/L [facility] Anion gap 10 2 - 15 mmol/L [facility] BUN 7 6 - 25 mg/dL [facility] Creatinine 0.55(L) 0.60 - 1.10 mg/dL [facility] Glucose 82 70 - 199 mg/dL [facility] Comment: Interpretive Data Fasting glucose >/= 126 mg/dl is diagnostic for diabetes. Fasting is defined as no caloric intake for at least 8 hours. Fasting glucose between 100 mg/dl to 125 mg/dl is diagnostic of prediabetes. In a patient with classic symptoms of hyperglycemia or hyperglycemic crisis, a random glucose >/= 200 mg/dl is diagnostic for diabetes. In the absence of unequivocal hyperglycemia, results should be confirmed by repeat testing. The classification and Diagnosis of Diabetes Diabetes Care 2021; 46: S19-S40. Current interpretive data was last revised 2022. Calcium 8.7 8.5 - 10.3 mg/dL [facility] Bilirubin, total 0.3 0.1 - 1.2 mg/dL [facility] Protein, pl 6.4(L) 6.5 - 8.5 g/dL [facility] Albumin 3.4(L) 3.5 - 5.0 g/dL [facility] Alk phos 118 40 - 130 Units/L [facility] ALT 15 7 - 45 Units/L [facility] AST 24 10 - 45 Units/L [facility] Blood 01/24/2025 10:4 6 AM CDT 01/24/2025 11:00 AM CDT us Tiny Strange NP LAB BLOOD ORDERABL ES Final Result [facility] Department [place] [address] * (ABNORMAL) POCT urinalysis (Clinitek) (01/24/2025 8:56 AM CDT) Color, ur, POC Yellow Yellow Clarity, UA, POC Clear Clear [facility] Glucose, ur, POC Negative Negative [facility] Bilirubin, ur, POC Negative Negative [facility] Ketones, ur, POC Negative Negative [facility] Specific gravity, ur, POC 1.010 1.010 - 1.025 [facility] Blood, ur, POC Trace(A) Negative [facility] pH, ur, POC 7.0 [facility] Comment: Interpretive Data Urine pH is affected by diet, medications, systemic acid-base disturbances, and renal tubular function. pH may affect urinary stone formation. For example, urine pH below 6.0 may help reduce the tendency for calcium phosphate stones and pH greater than 6.0 may reduce the tendency for uric acid stone formation. Source: [address] Last Revised Date: 08-06-2017 Protein, ur, POC Negative Negative [facility] Urobilinogen, ur, POC 0.2 mg/dL mg/dL [facility] Nitrites, ur, POC Negative Negative [facility] Leukocyte esterase, ur, POC Negative Negative [facility] Urine 01/24/2025 8:56 AM CDT 01/24/2025 8:56 AM CDT us Jorge L Black MD LAB POCT ORDERABLES - DEV ICE Final Result [facility] Department [place] [address] * US Ob Limited (01/24/2025 8:45 AM CDT) Anatomical Region Laterality Modality Abdomen N/A Ultrasound Study GA Study Date Study ALMA Working ALMA (Source) 01/24/2025 02/23/2025 (Last Menstrua l Period) Fetus A Measurements Value GA (days) Amniotic fld Heart Rate CRL Sac Diameter Addenda Addendum by Jorge L Black MD on 01/24/2025 10:38 AM CDT I have independently reviewed and interpreted the ultrasound performed by Camila Coppola NP. This demonstrates fetus in vertex presentation with LYIAH 12.35 cm. Narrative 01/24/2025 8:46 AM CDT [facility] BSUS Vertex DVP: 4.2cm LIYAH: 12.35cm us Camila Sutton ELECTRICAL LABORATORY TECHNICIAN IMG OB US PROCEDURES Edited R esult - Final * (ABNORMAL) POCT urinalysis (Clinitek) (01/24/2025 6:51 AM CDT) Color, ur, POC Yellow Yellow Clarity, UA, POC Clear Clear [facility] Glucose, ur, POC Negative Negative [facility] Bilirubin, ur, POC Negative Negative [facility] Ketones, ur, POC Negative Negative [facility] Specific gravity, ur, POC 1.010 1.010 - 1.025 [facility] Blood, ur, POC Trace(A) Negative [facility] pH, ur, POC 7.0 [facility] Comment: Interpretive Data Urine pH is affected by diet, medications, systemic acid-base disturbances, and renal tubular function. pH may affect urinary stone formation. For example, urine pH below 6.0 may help reduce the tendency for calcium phosphate stones and pH greater than 6.0 may reduce the tendency for uric acid stone formation. Source: [facility] [employer]. Last Revised Date: 08-06-2017 Protein, ur, POC Negative Negative [facility] Urobilinogen, ur, POC 0.2 mg/dL mg/dL [facility] Nitrites, ur, POC Negative Negative [facility] Leukocyte esterase, ur, POC Negative Negative [facility] Urine 01/24/2025 6:51 AM CDT 01/24/2025 6:51 AM CDT us Tiny Quezada MD LAB POCT ORDERABLES - DEVICE Final Result [facility] Department [place] [address] * Ob Follow Up (01/19/2025 10:50 AM CDT) Fetus# Fetus1 VIEWPOINT Estimated Weight 2,492 g&grams VIEWPOINT Placenta Details anterior, Previa-no VIEWPOINT Presentation Vertex VIEWPOINT Anatomical Region Laterality Modality Abdomen N/A Ultrasound 01/19/2025 10:5 1 AM CDT Impressions 01/19/2025 11:31 AM CDT IUP at 35w 0d for evaluation of growth assessment. Vertex presentation. The interval growth has been appropriate. The EFW plots at the 38%. The amniotic fluid volume measured 16 cm. Narrative Procedure Note Karen Hudson MD - 01/19/2025 IMPRESSION: IUP at 35w 0d for evaluation of growth assessment. Vertex presentation. The interval growth has been appropriate. The EFW plots at the 38%. The amniotic fluid volume measured 16 cm. us Jorge L Black MD IMG OB US PROCEDURES Yari l Result * US Ob Follow Up (12/22/2024 9:58 AM CDT) Fetus# Fetus1 VIEWPOINT Estimated Weight 1,646 g&grams VIEWPOINT Placenta Details anterior, Previa-no VIEWPOINT Presentation Vertex VIEWPOINT Anatomical Region Laterality Modality Abdomen N/A Ultrasound 12/22/2024 9:59 AM CDT Impressions 12/22/2024 11:11 AM CDT IUP - 31w 0d - interval growth is normal - size is AGA The kidneys are normal appearing for gestational age. Narrative Procedure Note Adi Gordon MD - 12/22/2024 IMPRESSION: IUP - 31w 0d - interval growth is normal - size is AGA The kidneys are normal appearing for gestational age. us Jorge L Black MD IMG OB US PROCEDURES Edit ed * (ABNORMAL) POCT urinalysis (Clinitek) (12/08/2024 9:48 AM CDT) Color, ur, POC Yellow Yellow Clarity, UA, POC Clear Clear [facility] Glucose, ur, POC Negative Negative [facility] Bilirubin, ur, POC Negative Negative [facility] Ketones, ur, POC Negative Negative [facility] Specific gravity, ur, POC 1.015 1.010 - 1.025 [facility] Blood, ur, POC Trace(A) Negative [facility] pH, ur, POC 7.0 [facility] Comment: Interpretive Data Urine pH is affected by diet, medications, systemic acid-base disturbances, and renal tubular function. pH may affect urinary stone formation. For example, urine pH below 6.0 may help reduce the tendency for calcium phosphate stones and pH greater than 6.0 may reduce the tendency for uric acid stone formation. Source: [facility] [employer]. Last Revised Date: 08-06-2017 Protein, ur, POC Negative Negative [facility] Urobilinogen, ur, POC 0.2 mg/dL mg/dL [facility] Nitrites, ur, POC Negative Negative [facility] Leukocyte esterase, ur, POC 1+(A) Negative [facility] Urine 12/08/2024 9:48 AM CDT 12/08/2024 9:48 AM CDT us Tiny Quezada MD LAB POCT ORDERABLES - DEVICE Final Result [facility] Department [place] [address] * Hepatitis C antibody Blood (08/16/2024 10:43 AM MANAGER FINANCE) Hep C Ab NON-REACTI VE NON-REACT IMAN [facility] Comment: HCV antibody was non-reactive. There is no laboratory evidence of HCV infection. In most cases, no further action is required. However, if recent HCV exposure is suspected, a test for HCV RNA (test code 92575) is suggested. For additional information please refer to http://education.ShareMeme/faq/QHD39y8 (This link is being provided for informational/ educational purposes only.) Blood 08/16/2024 10:4 3 AM MANAGER FINANCE 08/16/2024 10:44 AM MANAGER FINANCE us Tiny Quezada MD LAB MICROBIOLOGY - GE NERAL ORDERABLES Final Result [facility] [id number] [address] [id number] * Pap with reflex to High Risk HPV and Genotyping (Cytology Component) (12/22/2023 3:03 PM CDT) Thin prep (Pap test) 12/22/2023 3:03 PM CDT 12/23/2023 3:38 AM CDT Narrative PATHOLOGY [facility] - 12/29/2023 11:05 AM CDT EPIC results best viewed via link to PDF [facility] [place] [address] Note to Patients: This report may contain a detailed description of human tissue sent by a health care provider to the laboratory for pathologic evaluation. The content of this report is essential for diagnosis and may provide important critical findings. This information may be unfamiliar to patients to review without a medical professional present. It is advised that the patient review this report in the presence of a health care provider who can answer questions and explain the details. CYTOPATHOLOGY REPORT FINAL Patient Name: JAYME ANGEL Gender: Ashok : 2000 (Age: 23) Address: [facility] [place] [place] [address] Hospital #: [id number] Service: DEFAULT Location: Patient Type: [facility] SPECIMEN Taken: 12/22/2023 Received: 12/23/2023 Accessioned: 12/23/2023 Reported: 12/29/2023 Physician(s): Brea Winter M.D. FINAL INTERPRETATION SOURCE OF SPECIMEN Liquid based Thin Prep pap with Reflex HPV: STATEMENT OF ADEQUACY - Satisfactory for evaluation - Endocervical cells/transformation zone sample absent GENERAL CATEGORIZATION: - Negative for squamous intraepithelial lesion or malignancy lwl/12/29/2023 11:05 Cuauhtemoc Ca MS, CT(ASCP)PA Report Electronically Reviewed and Signed Out By Cuauhtemoc Ca MS, CT(ASCP)ARELIS 12/29/2023 11:05:47 Cervicovaginal Cytology (Pap Test) Disclaimer: The Pap test is a screening test used to detect cervical cancer and its precursors; it is not a diagnostic procedure. False negative and false positive results do occur. Pap test results should be interpreted in the context of pertinent clinical information and biopsy results as indicated. [facility] Clinical Laboratory Improvement Amendments (CLIA) mandate that cytologic and histologic results be correlated for laboratory associate quality engineer & improvement standards. FOR ALL HIGH-GRADE CASES we request submission of follow-up histological material and/or reports that have not been previously provided so that we may fulfill said required standards. Gross Description A. Liquid based Thin Prep pap with Reflex HPV: Cervical/vaginal - Screening ThinPrep Clinical Diagnosis and History Last Menstrual Period: oral contraception The patient is a 23 year old female with screen. Report Images and scanned documents, if included only viewable in PDF version The performance characteristics of some immunohistochemical stains, in-situ hybridization and fluorescence in-situ hybridization tests and immunophenotyping by flow cytometry cited in this report (if any) were determined by the Surgical Pathology Department at [facility] as part of an ongoing quality consultant program and in compliance with federally mandated regulations drawn from the Clinical Laboratory Improvement Act of 1988 (CLIA '88). Some of these tests rely on the use of analyte specific reagents and are subject to specific labeling requirements by the [place] Food and Drug Administration. Such diagnostic tests may only be performed in a facility that is certified by the Department of Health and Human Services as a high complexity laboratory under CLIA '88. The FDA has determined that such clearance or approval is not necessary. This test is used for clinical purposes. It should not be regarded as investigational or for research. Nevertheless, federal rules concerning the medical use of analyte specific reagents require that the following disclaimer be attached to the report: This test was developed and its performance characteristics determined by the Surgical Pathology Department of [facility]. It has not been cleared or approved by the U. S. Food and Drug Administration. Brunilda Winter MD LAB CYTOLOGY ORDERABLES Fi nal Result PATHOLOGY [facility] from Last 3 Months or Most Recently Relevant to Health Maintenance Insurance [place] [employer] [place] Advance Directives For more information, please contact: [phone] * Full Code (Latest Code Status on File) Date Activated Date Inactivated Comments 02/12/2025 11:27 AM 02/14/2025 3:35 PM * Full Code Date Activated Date Inactivated Comments 02/11/2025 9:52 PM 02/12/2025 11:27 AM Full CPR in case of cardiopulmonary arrest * Full Code Date Activated Date Inactivated Comments 01/24/2025 10:21 AM 01/25/2025 3:55 PM Full CPR in c ase of cardiopulmonary arrest * Full Code Date Activated Date Inactivated Comments 10/16/2024 5:21 PM 10/17/2024 3:57 PM * Full Code Date Activated Date Inactivated Comments 05/20/2022 4:00 AM 05/22/2022 7:06 PM Care Teams Acid Conditioner Relationship Specialty Start Date End Date Mehreen Saleem NP [address] [address] PCP - General Family Medicine 12/22/23
--- OUTSIDE RECORDS SUMMARY | 2025-02-28 12:40 | XMS_ITS | Clinical Summary ---
Author Organization [facility] Address [facility] [place] [address] Care Team Providers [place] Adviser Name Role Phone Mehreen Saleem NP Primary Care Provider [phone] Allergies Active Allergy Reactions Criticality Noted Date [...] as needed for pain 60 tablet 05/22/20 025 Discontin ued(Stop Taking at Discharge ) [...] home today. Normal labor 02/11/2025 Overview (02/11/2025): Heriberto nAgel is a 24 y.o. female at 38w2d [...] 31w ultrasound. uterine contractions 01/24/2025 Overview (01/24/2025): Heriberto Angel is a 24 y.o. female at [...] ABORH A Positive 05/19/2022 IDCOOMB Negative 05/19/2022 [id number] Nonreactive 04/29/2022 LABRPR NON-REACTIVE 08/16/2024 RUBELIGG 2.83 [...] 36wks Girl Vanna, FORMULA feeding, [facility] peds Teaching: [x] 1st visit [x] 28-30 week [x] 36 week HPV Vaccine counseling (<=26 yo): [] Completed vaccine series [] To be ordered prior to discharge on [] To receive at visit [] Declined s/p counseling [] Not applicable Supervision of high-risk , bogdanginny julien 06/27/2024 Overview (07/15/2024): SEROLOGIES NEEDED - to be collected via primary team, WashU [] Co-management vs. [] Full MFM Care; [...] [] MOC: [] Method of feeding: [] Machine Learning Intern (specifically which provider): [] PP Depression Discussed: [...] declines booster # Disposition: Follow up with M- visits scheduled. Desires discharge home today. Poor [...] counselors for global Referring Provider: Marisol Reyes [phone] [] OWM or Medicare Insurance [x] Dating Criteria: LMP [...] PPV [x] Method of feeding: formula [] Machine Learning Intern: [] PP Depression Discussed: Assessment & Plan (04/25/2022 12:45 PM CDT): RTC 2 wks Weekly BPPs/UA Dopplers, NSTs Delivery scheduled at 37 wks for now [x] Full MFM Care; [] Red Team [x] Blue Team GEENA as of 02/20- email sent to financial counselors for global Referring Provider: Marisol Reyes [phone] [] OWM or Medicare Insurance [x] Dating Criteria: LMP [...] [] MOC: [] Method of feeding: [] Machine Learning Intern: [] PP Depression Discussed: Encounters Date Type Department Care Team Description 02/12/2025 12:51 AM CDT Anesthesia Event [address] [phone] Vielka Navarrete MD Lee, Marino Chen MD 02/11/2025 8:01 PM CDT - 02/14/2025 11:29 AM CDT Hospital Encounter [address] [address] Jorge L Black MD Gray-Swain, Margaret Rosanna, MD Whelan, Victoria Conway, MD Discharge Disposition: Discharge to home or self care 02/09/2025 11:30 AM CDT Clinical Support [facility] Obstetrics and Gynecology [address] [place] [address] 02/09/2025 11:15 AM CDT Office Visit [facility] Obstetrics and Gynecology [address] [place] [address] [address] [place] [phone] Supervision of other normal , antepartum (Primary Dx) 02/01/2025 9:00 AM CDT Office Visit [facility] Obstetrics and Gynecology [address] [place] [address] [address] [place] [phone] Supervision of other normal , antepartum (Primary Dx) 01/27/2025 5:11 PM CDT - 01/27/2025 8:03 PM CDT Hospital Encounter [address] [address] Jorge L Black MD Discharge Disposition: Discharge to home or self care 01/27/2025 Results Follow-Up [address] [place] [address] Jorge L Black MD Group B streptococcal culture Vaginal/Rectal Vaginal 01/26/2025 11:58 AM CDT - 01/26/2025 12:31 PM CDT Hospital Encounter [address] [address] Jorge L Black MD Discharge Disposition: Discharge to home or self care 01/24/2025 8:50 AM CDT Ancillary Procedure [address] [phone] 01/24/2025 6:40 AM CDT - 01/25/2025 11:49 AM CDT Hospital Encounter [address] [phone] Tiny Quezada MD Chawla, Aneesh Surya, MD No leakage of amniotic fluid into vagina (Primary Dx) Discharge Disposition: Discharge to home or self care 01/19/2025 12:00 PM CDT Clinical Support [facility] Obstetrics and Gynecology [address] [place] [address] [place] [address] 01/19/2025 11:45 AM CDT Office Visit [facility] Obstetrics and Gynecology [address] [place] [address] 7th Floor [address] [place] [address] Supervision of other normal , antepartum (Primary Dx) 01/19/2025 10:45 AM CDT - 01/19/2025 11:59 PM CDT Hospital Encounter [facility] - Ultrasound [address] [place] [address], 7th Floor, [address] [place] [address] Previous baby with growth restriction Discharge Disposition: Discharge to home or self care 01/05/2025 10:00 AM CDT Office Visit [facility] Obstetrics and Gynecology [address] [place] [address] Floor [address] [place] [phone] Supervision of other normal , antepartum (Primary Dx); 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; 33 weeks gestation of 12/25/2024 Results Follow-Up [address] [address] Jorge L Black MD US Ob Follow Up, US Ob Follow Up 12/22/2024 11:15 AM CDT Office Visit [facility] Obstetrics and Gynecology [address] [facility] 7th Floor [address] [place] [address] Supervision of other normal , antepartum (Primary Dx) 12/22/2024 9:58 AM CDT - 12/22/2024 11:59 PM CDT Hospital Encounter [facility] - Ultrasound [address] [facility], 7th Floor, [address] [place] [address] Previous baby with growth restriction Discharge Disposition: Discharge to home or self care 12/08/2024 9:29 AM CDT - 12/08/2024 11:10 AM CDT Hospital Encounter [address] [phone] Tiny Quezada MD Discharge Disposition: Discharge to home or self care 12/08/2024 Telephone [facility] Obstetrics and Gynecology [address] [facility] 7th Floor [address] [place] [address] Piyush Herrera RN OB concern from Last 3 Months Immunizations Immunization Administration Dates Next Due Influenza, Quadrivalent, Catalina l Culture-based MDCK, Preservative Free, Antibiotic Free, Intramuscular 05/09/2022 Influenza, Unspecified 03/04/2024(Deferr ed: Patient Refused),07/27/2023(Deferred: Patient Refused),07/27/2022(Deferred: Patient Refused) Tdap 11/24/2024,04/03/2022 Varicella 01/05/2023 Medical History Medical History Date Comments Childhood asthma Raynaud's phenomenon Mild intermittent asthma without complication Family History Medical History Relation Name Comments No Known Problems Father No Known Problems Mother Alzheimer's disease Paternal Grandfather Colon cancer Paternal Grandmother Hypertension Paternal Grandmother Breast cancer Neg Hx Ovarian cancer Neg Hx Uterine cancer Neg Hx Relation Name Status Comments Father Alive Mother Alive Paternal Grandfather Paternal Grandmother Social History Tobacco Use Types Packs/Day Years Used Date Smoking Tobacco: Never Smokeless Tobacco: Never Tobacco Cessation:Counseling Given: Not Answered [facility] Utilities Answer Date Recorded In the past 12 months has th e electric, gas, oil, or water company threatened [...] often do you attend chur ch or mu-ism services? Never 02/13/2025 Do you belong to any clubs o r organizations such as islam groups, unions, fraternal or athletic groups, or [...] staff should administer the PHQ-9) 0 01/24/2025 [facility] - Occupational Stress [...] place to sleep or slept in a intermediate (including now)? No 05/21/2022 [place] Depression Scale Answer Date Recorded [place] Depression Scale Total 6 06/30/2022 The thought [...] any time in the past 12 m ont, were you homeless or living in a intermediate (including now)? No 02/13/2025 Personal Safety Answer [...] PM CDT Sexual Orientation Not on file Obstetrics History Para Term AB IAB SAB Ectopic Multiple Livin g Live Births 2 2 2 0 2 2 Date Outcome GA Total Labor Labor/2nd/3rd Weight Sex Type Anes PTL Alisa A1 A5 Name Clin 2021 Term 37w 1d 20h 44m 19h 00m/1h 39m/0h 05m 2.38 kg (5 lb 4 oz) F Vag-Sp ont Epidur al N Livin g 8 7 JUSTEN S,GIR LMORG AN Darion Albert MD Delivery Location:[facility] ([facility]) 2024 Term 38w 3d 0h 52m 0h 48m/0h 04m 3.27 kg (7 lb 3.3 oz) F Vagina l Epidur al Y Livin g 8 9 Bayli e Eitan s Thomas Lemus MD Complications:None Delivery Location:[facility] ([facility]) Comments [id number] @ 38.3 baby gir l Vanna midline periclitoral and L labial laceration Summary Episode Dates Number of Fetuses Estimated Date of Delivery 06/27/2024 - Present (02/28/2025) 1 02/23/2025 (set by Tiny Strange NP on 07/04/2024 based on Last Menstrual Period on 05/19/2024) Dating Summary Based On [place] Diff Last Menstrual Period on 05/19/2024 02/23/2025 Working Ultrasound on 07/07/2024 02/27/2025 -4d GA:6w3d Comment:Entered from OB Ultr asound Reporting. Vitals Pregravid Weight Height TWG (As of 02/28/2025) Pregrav id BMI 61.2 kg (135 lb) 162.6 cm (5' 4.02) 12.1 kg (26 lb 11 .2 oz) 23.16 Date GA Fund Present FHR Mvmt BP Weight Edema Alb Glu Ket Dil/ Eff/Sta 6w4d Inpatient data not displayed here. See encounter summary. 024 8w4d Inpatient data not displayed here. See encounter summary. 025 19w1d Inpatient data not displayed here. See encounter summary. 025 21w4d Inpatient data not displayed here. See encounter summary. 025 23w1d Inpatient data not displayed here. See encounter summary. 025 26w1d Inpatient data not displayed here. See encounter summary. 025 27w0d Inpatient data not displayed here. See encounter summary. 025 29w0d Inpatient data not displayed here. See encounter summary. 025 31w0d Inpatient data not displayed here. See encounter summary. 025 35w0d Inpatient data not displayed here. See encounter summary. 025 35w6d Inpatient data not displayed here. See encounter summary. 025 36w0d Inpatient data not displayed here. See encounter summary. 025 36w1d Inpatient data not displayed here. See encounter summary. 025 38w0d 102/6 7 74.8 kg (165 lb) 025 38w3d Inpatient data not displayed here. See encounter summary. Notes Progress Notes - Hospital En counter - 02/14/2025 - GA:38w3d 02/14/2025 - 38w3d - Sarita Pinto NP Post Progress Note Admission Date: 02/11/2025 EVELYN Angel is a 24 y.o. day 2 s/p Vaginal. Pain: Controlled Bleeding: lochia minimal Oral Intake: taking regular diet Voiding: without difficulty Bowel function: flatus and bowel movement Ambulating: yes Mood: stable Feeding: formula feeding No acute events overnight. Denies LOYA, visual changes, chest pain, SOB, or RUQ pain. Denies lightheaded or dizziness. Patient reports she got up to go get breakfast and got slightly dizzy and felt some numbness on her left side of her face. States it went away after about two minutes. Neuro exam WNL and patient reports symptoms are resolved. Patient to eat breakfast this morning and let the nurse know if she has any other symptoms or dizziness. Patient feeling well and denies concerns for discharge today. OBJECTIVE Vitals: Temp Min: 36.3 C (97.3 F) Max: 36.6 C (97.9 F) Pulse Min: 71 Max: 86 BP Min: 98/59 Max: 107/66 Resp Min: 16 Max: 18 SpO2 Min: 92 % Max: 97 % Physical Exam General: No acute distress. Neurologic: Alert and oriented Lungs: Non-labored. Abdomen: Soft, non distended, appropriately tender to palpation. Fundus firm below umbilicus. Extremities: Warm and well-perfused. No bilateral lower extremity edema or calf tenderness. Pelvic: Deferred. Lab Review: Lab Results Component Value Date WBC 11.84 (H) 02/11/2025 HGB 11.7 (L) 02/11/2025 HCT 33.3 (L) 02/11/2025 MCV 88.3 02/11/2025 LABPLAT 214 02/11/2025 Lab Results Component Value Date ABORH A Positive 02/11/2025 SCRIBEDABORH A+ 10/31/2021 IDCOOMB Negative 02/11/2025 SCRINDANTIGL negative 10/31/2021 [id number] Nonreactive 01/24/2025 [id number] NON-REACTIVE 08/16/2024 [id number] Negative 10/31/2021 LABRPR Nonreactive 02/11/2025 SCRRPR Non-Reactive 10/31/2021 RUBELIGG 2.83 08/16/2024 SCRRUBELIGG Immune 10/31/2021 HEPBSAG NON-REACTIVE 08/16/2024 VZVIGG 9.16 08/16/2024 Current Meds: Scheduled Medications acetaminophen, 1,000 mg, oral, Q6H JOAN docusate sodium, 100 mg, oral, BID viatmin, 1 tablet, oral, Daily polyethylene glycol, 17 g, oral, Daily PRN Medications albuterol HFA benzocaine-menthoL calcium carbonate hydrocortisone ibuprofen ubeqplo-ufomu-hvwosmp ondansetron ODT OR ondansetron varicella zoster ASSESSMENT/PLAN Heriberto Angel is a 24 y.o. female day 2 s/p Vaginal. Problem Encounter for Routine Follow-Up # ID: Afebrile. No signs/symptoms of infection. [...] task not sent. Desires discharge home today. MAHOGAYN Flores 02/14/25 Cosigned by Nighat Syed MD at 02/14/2025 3:58 PM CDT Associated attestation - Nighat Syed MD - 02/14/2025 3:58 PM CDT I have seen and examined the patient on 02/14/25. I agree with the findings and plan of care as documented in the resident's/fellow's note. Patient with an episode of dizziness and then left arm numbness. She then developed left facial numbness. She sat down and it resolved after eating. No symptoms since. Reviewed precautions since going home today given brief episode that was not sustained. 02/13/2025 - 38w3d - Guru Chanel ace, MD Post Progress Note Delivery Date/Time: 02/12/2025t 11:06 AM Delivery method: Vaginal [[id number]] Subjective Flatus: No Pain: Well controlled Diet: Tolerating regular diet. Ambulating independently Voiding spontaneously Lochia equal to menses Pt endorses doing well, reports pain well controlled. Has not yet passed gas. Denies dizziness/lightheadedness. Reports IV site a little bothersome with mild pain. Pt feels well to go home later today Scheduled Medications acetaminophen, 1,000 mg, oral, Q6H JOAN docusate sodium, 100 mg, oral, BID viatmin, 1 tablet, oral, Daily polyethylene glycol, 17 g, oral, Daily PRN Medications albuterol HFA benzocaine-menthoL calcium carbonate hydrocortisone ibuprofen sdenpnw-tcfnr-czulqde ondansetron ODT OR ondansetron varicella zoster Vitals: Temp: [36.3 C (97.3 F)-36.7 C (98.1 F)] 36.3 C (97.3 F) Pulse: [75-103] 78 BP: (91-113)/(51-75) 94/60 Resp: [18] 18 SpO2: [93 %-99 %] 96 % Intake/Output Summary (Last 24 hours) at 02/13/2025 0721 Last data filed at 02/12/2025 1350 Gross per 24 hour Intake -- Output 1381 ml Net -1381 ml Physical Exam General: No acute distress. Cardiovascular: Regular rate Lungs: Non-labored. Abdomen: Soft, non-distended, non-tender to palpation. Fundus below umbilicus. Extremities: Warm and well-perfused. Neuro: Globally intact Recent Labs Lab Units 02/11/25 2206 WBC K/cumm 11.84* HEMOGLOBIN g/dL 11.7* HEMATOCRIT % 33.3* PLATELETS K/cumm 214 CREATININE mg/dL 0.58* GLUCOSE mg/dL 76 Assessment and Plan 24 y.o. PPD#1from . Problem Encounter for Routine Follow-Up # ID: Afebrile. No signs/symptoms of infection. # Heme: EBL 250 mL. Hemodynamically stable. # CV/Pulm: [...] # Disposition: Follow up task not sent. Continue routine care. Anticipate d/c today Kaley Chanel MD 02/13/25 R4 Attestation PPD#1 from uncomplicated . Some additional bleeding following delivery, now resolved. QBL 681, asymptomatic. Meeting post milestones, appropriate for PM discharge pending baby dispo. Asuncion Orosco MD PGY-4 Cosigned by Nighat Syed MD at 02/13/2025 11:54 AM CDT Associated attestation - Nighat Syed MD - 02/13/2025 11:54 AM CDT I have seen and examined the patient on 02/13/25. I agree with the findings and plan of care as documented in the resident's/fellow's note.. 02/12/2025 - 38w3d - Nicole Bravo MD R4 Update Patient now /-2 on repeat SVE. Given patient is now in active labor, able to augment labor. Patient amenable to AROM, performed at 0510 with moderate amount of clear fluid. Nicole Bravo MD Obstetrics and Gynecology, PGY-4 02/12/2025 - 38w3d - Angie Wright MD Labor Update Note S: Patient s/p epidural and comfortable O: BP 100/53 Pulse 84 Temp 36.7 C (98.1 F) (Oral) Resp 16 Ht 162.6 cm (5' 4.02) Wt 161 lb 11.2 oz (73.3 kg) LMP 05/19/2024 SpO2 97% BMI 27.74 kg/m SVE: 5.5 /75 /-2 Monitoring: Baseline: 120-130 bpm, Variability: Moderate, Accelerations: Present and Decelerations: None Uterine Activity: Contractions present, q2 minutes A/P: 24 y.o. at 38w3d Category 1 tracing Vitals: reviewed and normal Additional medications/infusions: none #Labor - Continue to manage expectantly Angie Wright MD Progress Notes - Office Visi t - 02/09/2025 - GA:38w0d 02/09/2025 - 38w0d - Aliza Dan NP YOU Arvin Denies lof,bleeding. Having intermittent ctxs. Had consistent ctx from about 1-3am over night. Occurred every 4-5 mins then stopped. Has continued to have intermittent ctxs this am but not as regular. - Reports +FM - Desires cervical check. SVE performed. - IOL scheduled for 02/16/25 Aliza Armando APRN, WHNP-BC Progress Notes - Office Visi t - 02/01/2025 - GA:36w6d 02/01/2025 - 36w6d - Karen Henson RN Met with Heriberto Angel today for 36 week education. Discussed signs of labor and pp bc. 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 Also informed that social work will visit her in the hospital and baby will have a hearing and blood screening. Pt stated understanding. Having a girl! Going to [facility] in [place], [place] reviewed closest hospitals with OB care if pt feels like she is progressing quickly. 02/01/2025 - 36w6d - Hiwot Denney NP YOU - Denies lof and or bleeding. Notes intermittent ctx's. More intermittent pelvic pain and pressure. - Reports +FM - GBS, blood work and presentation US all done 01/24 - has IOL in place - Met with Day RN for 3T teaching - declines SVE today RTC in 1 week Carisa Denney APRN, WHMALLIKA-BC Progress Notes - Hospital En counter - 01/27/2025 - GA:36w1d 01/27/2025 - 36w1d - Juan Gonzalez NP Obstetrics H&P Chief Complaint: DFM, CTX w/o pain Estimated Date of Delivery: 02/23/25 Provider: [facility] HPI: Heriberto Angel is a 24 y.o. female at 36w1d gestation, dated by L=. She presents with contractions that started yesterday. Initially they were painful but today have been slight discomfort with tightening. Patient also has not been feeling baby move much since around 11:30am today. Small movements noted but only a few. Denies VB, LOF. Her is complicated by Hx FGR in G1, asthma in childhood, Raynaud's, UTD-resolved @ 31wks Patient Denies: [] Contractions [x] Shortness of Breath [x] Nausea/Vomitting [x] Vaginal Bleeding [x] Headache [x] Abdominal Pain [x] Leaking of Fluid [x] Visual changes [] Decreased Movement OB History Para Term AB Living 2 1 1 0 0 1 SAB IAB Ectopic Multiple Live Births 0 0 0 0 1 # Outcome Date GA Lbr Qasim/2nd Weight Sex Type Anes PTL Lv 2 Current 1 Term 05/20/22 37w1d 19:00 / 01:39 2380 g (5 lb 4 oz) F Vag-Spont EPI N ALISA Name: SHANTEL ANGEL Apgar1: 8 Apgar5: 7 FOOD PREP WORKER History: Patient's last menstrual period was 05/19/2024. History of Abnormal Pap: None STD History: none Past Medical History: Diagnosis Date Childhood asthma Mild intermittent asthma without complication 12/11/2022 Raynaud's phenomenon Chronic hypertension: No Diabetes: No Asthma: childhood No past surgical history on file. Social History Tobacco Use Smoking status: Never Smokeless tobacco: Never Substance and Sexual Activity Drug use: Not Currently Types: Alcohol Comment: social Sexual activity: Yes Partners: Male control/protection: OCP Alcohol Use: Not on file Support System: Not addressed Safe at home: Yes family history includes Alzheimer's disease in her paternal grandfather; Colon cancer in her paternal grandmother; Hypertension in her paternal grandmother; No Known Problems in her father and mother. Family history of bleeding or clotting disorders: No Family history of defects, genetic disorders, or developmental delay: No Allergies Allergen Reactions Penicillins Rash HOME MEDICATIONS : acetaminophen 500 mg capsule albuterol HFA (PROVENTIL HFA,VENTOLIN HFA,PROAIR HFA) 90 mcg/actuation inhaler PNV no.95/ferrous fum/folic ac ( ORAL) Review of Sys: Negative except per HPI Vitals: Temp: [36.7 C (98.1 F)] 36.7 C (98.1 F) Pulse: [106] 106 Resp: [20] 20 BP: (118)/(76) 118/76 Physical Exam: General: NAD, mood appropriate Cardiovascular: Regular rate and rhythm Pulmonary: unlabored Abdomen: Gravid, non-tender Extremities: Warm and well perfused Speculum Exam: no pooling of fluid seen, Nitrizine test is negative, Ferning test is negative, wet prep results: resulted at bedside: no pathogens and pH 4.5 Cervix: 4 /25 /-3 x 2 checks Monitoring: Baseline: 125 bpm, Variability: Moderate, Accelerations: Present and Decelerations: None Uterine Activity: Irregular contractions Interpretation: Reactive Labs: Lab Results Component Value Date ABORH A Positive 01/24/2025 SCRIBEDABORH A+ 10/31/2021 IDCOOMB Negative 01/24/2025 SCRINDANTIGL negative 10/31/2021 [id number] Nonreactive 01/24/2025 [id number] NON-REACTIVE 08/16/2024 [id number] Negative 10/31/2021 LABRPR Nonreactive 01/24/2025 SCRRPR Non-Reactive 10/31/2021 RUBELIGG 2.83 08/16/2024 SCRRUBELIGG Immune 10/31/2021 HEPBSAG NON-REACTIVE 08/16/2024 VZVIGG 9.16 08/16/2024 Assessment and Plan # Abdominal pain/Contractions: -No evidence of pre-term labor, UTI, cervicitis/vaginitis, or dehydration. -Wet prep unremakrable -SVE 11/18/-3 and irregular contractions noted on toco. -Abdominal exam benign. # MWB -VSS # FWB -reactive monitoring Plan discussed with Dr. Quezada. Viktoria Gonzalez NP 01/27/25 Progress Notes - Hospital En counter - 01/26/2025 - GA:36w0d 01/26/2025 - 36wd - Monserrat Pulliam NP SOAP Heriberto Angel is a 24 y.o. female female at 36w0d gestation S: Presents for BMZ injection only O: Vital signs: BP 111/71 (BP Location: Left arm, Patient Position: Sitting) Pulse 109 Temp 36.8 C (98.2 F) (Oral) Resp 16 LMP 05/19/2024 SpO2 97% Monitoring: Diagnostic Review Lab Results Component Value Date WBC 12.29 (H) 01/24/2025 HGB 11.2 (L) 01/24/2025 HCT 32.5 (L) 01/24/2025 MCV 92.1 01/24/2025 LABPLAT 199 01/24/2025 A/P: Heriberto Angel is a 24 y.o. female female at 36w0d gestation BMZ #2 in [facility] without incidence FWB- + FHT Disposition- Discharge to home with follow up as scheduled Monserrat Pulliam NP Progress Notes - Hospital En counter - 01/25/2025 - GA:35w6d 01/25/2025 - 35w6d - Rosa Cheng MD Antepartum Progress Note Gestational Age: 35w6d Admission Date: 01/24/2025 Length of stay: 1 Admission Diagnosis: threatened labor c/b: Hx FGR in G1, asthma in childhood, Raynaud's, UTD-resolved @ 31wks SUBJECTIVE -Contractions have improved, spaced to every 10 mins and less painful. She is trying to pay closer attention to when they're happening -Reports active movement. No vaginal bleeding/leakage of fluid Review of Systems Negative except as per above. OBJECTIVE Vitals: Temp Min: 36.6 C (97.8 F) Max: 36.9 C (98.4 F) Pulse Min: 86 Max: 122 BP Min: 98/63 Max: 117/60 Resp Min: 16 Max: 18 SpO2 Min: 91 % Max: 100 % FHR: NST reactive [place]: no regular contractions Physical Exam General: No acute distress. Cardiovascular: Regular rate Lungs: Non-labored. Abdomen: Soft, non-tender, gravid. Extremities: Warm and well-perfused. Pelvic: Deferred. Neurologic: Alert and oriented x4, non-focal Lab Review: Recent Labs Lab Units 01/24/25 1046 WBC K/cumm 12.29* HEMOGLOBIN g/dL 11.2* HEMATOCRIT % 32.5* PLATELETS K/cumm 199 Recent Labs Lab Units 01/24/25 1046 SODIUM mmol/L 139 POTASSIUM PLASMA mmol/L 4.0 CHLORIDE mmol/L 108 CO2 mmol/L 21* ANIONGAP mmol/L 10 GLUCOSE mg/dL 82 BUN SERUM mg/dL 7 CREATININE mg/dL 0.55* CALCIUM mg/dL 8.7 ALBUMIN g/dL 3.4* ALK PHOS Units/L 118 ALT Units/L 15 AST Units/L 24 BILIRUBIN TOTAL mg/dL 0.3 ASSESSMENT/PLAN Heriberto Angel is a 24 y.o. at 35w6d admitted for threatened labor. #Threatened PTL - presented to [facility] w/ contractions q5 mins, now spaced - No VB, no SROM, no c/f abruption - deferred tocolysis iso GA, Ancef dc'd iso stability, Mg n/a - Patient interested in utility of BMZ; discussed role of BMZ until 36w6d (ALPS study), although they are often deferred at her GA if c/f imminent delivery. Some risk of hypoglycemia. For further discussion this morning. - Wet prep negative for pathogens - Ucx/GC/CT/trich deferred on admission, ordered #Hx FGR in G1 - h/o FGR with elevated Dopplers (delivered at 37 weeks) - AGA on serial Peyman #Raynaud's - Supportive care - Prevent/decrease cold exposure, avoid of vasoconstrictive drugs/nicotine, may trial nifedipine if needed #FWB #Resolved UTD -Dating criteria L=1 -Genetic screening LR NIPT -Anatomy US wnl -fUS 01/19: EFW 2492g (38%), normal fluid -01/24: BSUS vertex -BMZ, Mg, Peds deferred -dNST -Completed Peyman for #MWB -PNL: Rh +/Ab -, Rub IM, HIV NR, HepB NR, HepC NR, VZV IM, RPR NR, GC/CT neg/neg, UCx neg -3T labs HIV/RPR NR/NR -Pap NILM 12/2023 -1hr GTT 121 -Tdap 11/24 -Placenta anterior -GBS pending 01/24 -MOF: formula -MOD: anticipate vaginal -MOC: JOSÉ MIGUEL as bridge to vasectomy, BTL if CS (private insurance) Dispo: Heriberto lives 40 mins away. Discussed sometimes reasonable to dc this evening if she is comfortable and SVE stable, vs CTM inpatient especially given degree of dilation and distance from hospital. If planning BMZ course, remain admitted at least through second dose. Rosa Jones MD 01/25/25 Cosigned by Jorge L Black MD at 01/30/2025 11:30 AM CDT Associated attestation - Jorge L Black MD - 01/30/2025 11:30 AM CDT I have seen and examined the patient on 01/25/2025. I agree with the findings and plan of care as discussed with and documented by resident physician Rosa Jones MD (PGY-3). 24 y.o. female at 35w6d weeks gestation admitted for labor. Reported active movement. Denied vaginal bleeding, leakage of fluid, or regular/painful contractions. SVE stable at 4cm. Counseled on continued observation versus discharge to home, patient felt comfortable with discharge to home. Reviewed risks and benefits of betamethasone or lung maturity in the late period. After counseling, shared decision making utilized and patient received first dose. Will return 01/26/2025 for second dose [facility]. labor return precautions reviewed. All questions were answered to her satisfaction and she voiced understanding. 01/24/2025 - 35w5d - Guru Chanel ace, MD R1 Labor Update Note S: Patient comfortable O: BP 106/57 Pulse 96 Temp 36.7 C (98.1 F) (Oral) Resp 18 Ht 162.6 cm (5' 4) Wt 162 lb 8 oz (73.7 kg) LMP 05/19/2024 SpO2 97% BMI 27.89 kg/m SVE: Monitoring: Baseline: 140 bpm, Variability: Moderate, Accelerations: Present and Decelerations: None Uterine Activity: Irregular contractions A/P: 24 y.o. at 35w5d Category I tracing Continue expectant management of PTL Vitals: reviewed and normal Additional medications/infusions: Ancef for GBS ppx given GBS unknown at 35w5d and PCN allergy Kaley Chanel MD 01/24/2025 - 35w5d - Camila Sutton NP Images from the original note were not included. Obstetrics H&P Chief Complaint: Contractions Estimated Date of Delivery: 02/23/25 Provider: [facility] OBGYN HPI: Heriberto Angel is a 24 y.o. female at 35w5d gestation, dated by L=1st presents for complaints of contractions that started around 0430AM. Reports taking Tylenol at home with no improvement. Reports some contractions are stronger than others. Rates pain /10. Denies VB, LOF, dysuria, constipation and or concerns for vaginal infections. Endorses +FM. Her is complicated by: Hx FGR in G1, asthma in childhood, raynaud's and UTD-resolved @ 31wks Patient Denies: [] Contractions [x] Shortness of Breath [x] Nausea/Vomitting [x] Vaginal Bleeding [x] Headache [x] Abdominal Pain [x] Leaking of Fluid [x] Visual changes [x] Decreased Movement OB History Para Term AB Living 2 1 1 0 0 1 SAB IAB Ectopic Multiple Live Births 0 0 0 0 1 # Outcome Date GA Lbr Qasim/2nd Weight Sex Type Anes PTL Lv 2 Current 1 Term 05/20/22 37w1d 19:00 / 01:39 2380 g (5 lb 4 oz) F Vag-Spont EPI N ALISA Name: SHANTEL ANGEL Apgar1: 8 Apgar5: 7 FOOD PREP WORKER History: Patient's last menstrual period was 05/19/2024. History of Abnormal Pap: NILM 12/22/23 STD History: none Past Medical History: Diagnosis Date Childhood asthma Mild intermittent asthma without complication 12/11/2022 Raynaud's phenomenon Chronic hypertension: No Diabetes: No Asthma: Yes No past surgical history on file. Social History Tobacco Use Smoking status: Never Smokeless tobacco: Never Substance and Sexual Activity Drug use: Not Currently Types: Alcohol Comment: social Sexual activity: Yes Partners: Male Alcohol Use: Not on file Support System: Supported by SO Safe at home: Yes family history includes Alzheimer's disease in her paternal grandfather; Colon cancer in her paternal grandmother; Hypertension in her paternal grandmother; No Known Problems in her father and mother. Family history of bleeding or clotting disorders: No Family history of defects, genetic disorders, or developmental delay: No Allergies Allergen Reactions Penicillins Rash HOME MEDICATIONS : acetaminophen 500 mg capsule albuterol HFA (PROVENTIL HFA,VENTOLIN HFA,PROAIR HFA) 90 mcg/actuation inhaler PNV no.95/ferrous fum/folic ac ( ORAL) Review of Sys: Negative except per HPI Vitals: Temp: [36.7 C (98 F)] 36.7 C (98 F) Pulse: [88] 88 Resp: [18] 18 BP: (109)/(72) 109/72 Physical Exam: General: NAD, mood appropriate Cardiovascular: Regular rate and rhythm Pulmonary: unlabored Abdomen: Gravid, non-tender Extremities: Warm and well perfused Speculum Exam: no pooling of fluid seen, Nitrizine test is negative, Ferning test is negative, vaginal discharge: small amount of thin white discharge, wet prep: pH: 3.5, no pathogens Cervix: FT/L/H Monitoring: Baseline: 140 bpm, Variability: Moderate, Accelerations: Present and Decelerations: None Uterine Activity: Contractions present, q5-10 minutes Interpretation: Reactive Ultrasound: Vertex presentation Anterior placenta Previa: No DVP: 4.2cm and RENETTA: 12.35cm Labs: Lab Results Component Value Date ABORH A Positive 10/16/2024 SCRIBEDABORH A+ 10/31/2021 IDCOOMB Negative 10/16/2024 SCRINDANTIGL negative 10/31/2021 [id number] Nonreactive 04/29/2022 [id number] NON-REACTIVE 08/16/2024 [id number] Negative 10/31/2021 LABRPR Nonreactive 11/04/2024 SCRRPR Non-Reactive 10/31/2021 RUBELIGG 2.83 08/16/2024 SCRRUBELIGG Immune 10/31/2021 HEPBSAG NON-REACTIVE 08/16/2024 VZVIGG 9.16 08/16/2024 Assessment and Plan: Patient is a 24 year old @ 35w5d who is being admitted for tPTL #R/o PTL -VSS -[place]: irregular ctx -Urine dipstick: S.010, bld trace -Took Tylenol prior to coming to [facility] -SVE: FT/L/H to 3 -SSE: no pooling of fluid seen, Nitrizine test is negative, Ferning test is negative, vaginal discharge: small amount of thin white discharge, wet prep: pH: 3.5, no pathogens -IVF bolus #FWB -Reactive FHR Tracing -Endorses +FM Refer to H&P for admission and ongoing POC. Patient admitted to L&D for tPTL. Camila Sutton NP Care assumed by Tessa Strange, MALLIKA @ 0800AM 01/24/25 Progress Notes - Office Visi t - 01/19/2025 - GA:35w0d 01/19/2025 - 35w0d - Tiny Arango MD EOB Visit Patient reports doing well today. She reports occasional Tab-Malcolm contractions. She denies vaginal bleeding and leakage of fluid. She endorses good movement. Growth US today with EFW AGA, normal RENETTA and vertex presentation. WA precautions reviewed. RTC in 1 week. Progress Notes - Office Visi t - 01/05/2025 - GA:33w0d 01/05/2025 - 33w0d - Brandi Cox MD EOB at 33w0d - Supervision of : episode of BH recently, +groin pain with walking (recommended support belt), overall doing well - Hx of FGR: plan for serial growth US and last growth US on 12/22 with AGA pattern - Asthma: no recent exacerbations, childhood, sent albuterol inhaler in case - MOD: IOL scheduled no 02/20 - MOC: OCPs as a bride to vasectomy - Baby girl [facility] - [facility] precautions reviewed Progress Notes - Office Visi t - 12/22/2024 - GA:31w0d 12/22/2024 - 31w0d - Hiwot Denney NP YOU - Denies lof,bleeding and or ctx's - Reports +FM - growth US today efw 1646g ( 33%), fhr 150, vtx, anterior placenta, no previa, renetta nml RTC in 2 weeks Carisa Denney APRN, TARUN- Progress Notes - Office Visi t - 11/24/2024 - GA:27w0d 11/24/2024 - d - Jorge L Black MD EOB--27w0d - Doing well today. No concerns. - 2T labs reviewed and normal, passed 1h GTT (121) - Hx FGR: Growth US today with AGA fetus and left UTDA1 on preliminary read, next due in 4 weeks - Asthma: Stable, no recent albuterol use - Tdap today - 28 week teaching completed by Karen Henson RN - MOF: Formula - MOC: OCP as bridge to vascetomy - Having a girl! Plans to name daughter Vanna! 11/24/2024 - - Karen Henson RN Met with Heriberto Angel today for 28-30 week education. Patient plans to formula feed. Aware that art consultant will meet with patient in the hospital. Discussed the baby friendly initiatives i.e. skin to skin, rooming in and delayed bath. Also discussed birthing classes and how to enroll, reviewed online resources and virtual tour currently being offered by [facility]. Having a girl! Plans to use [employer]. Progress Notes - Hospital En counter - 11/18/2024 - GA:26w1d 11/18/2024 - - Tiny Chaudhry RN Reactive strip. Pt discharge instructions reviewed, no questions. Pt ambulated out of WAC, gait steady. 11/18/2024 - - Tiny Cortes NP RICKY Angel is a 24 y.o. female female at 26w1d gestation S: Presents for decreased movement.Feeling baby moving, but feels less than normal O: Vital signs: BP 105/61 Pulse 89 Temp 36.6 C (97.8 F) (Oral) LMP 05/19/2024 SpO2 100% Monitoring: Baseline: 150 bpm, Variability: Moderate, Accelerations: Present and Decelerations: age appropriate variables Uterine Activity: No contractions seen on toco Interpretation: Reactive Diagnostic Review Lab Results Component Value Date WBC 9.66 11/04/2024 HGB 11.3 (L) 11/04/2024 HCT 34.0 (L) 11/04/2024 MCV 95.8 11/04/2024 LABPLAT 237 11/04/2024 A/P: Heriberto Angel is a 24 y.o. female female at 26w1d gestation #FWB- NST reactive Discussed anterior placenta. Feeling movement in [facility], hearing movement on monitor.Feels reassured. Plan of care and NST reviewed by hadley Brown for discharge. Prec given. Disposition- Discharge to home with follow up as scheduled Tiny Strange NP 11/18/2024 - - Tiny Chaudhry RN Pt is a 24yo presenting to the [facility] with c/o DFM. Pt reports began last night, did all the things: kick counts, ate/drank. Called OB's office this am who advised pt come in for evaluation. Pt denies LOF, VB, or Ctx. Progress Notes - Office Visi t - 10/28/2024 - GA:23w1d 10/28/2024 - - Lyn Hernandez MD EOB 23w1d Was admitted for r/o PPROM and was ruled out. Is back to normal discharge at this time and no further gushes. Ultrasound for growth today, breech, 39% with normal fluid. Labs ordered, Rh+ Progress Notes - Hospital En counter - 10/17/2024 - GA:21w4d 10/17/2024 - - Corrine Hernandez MD Images from the original note were not included. Brief R2 Update In setting of previous equivocal exams but with ROM+ negative x2, to bedside for repeat ROM exam. On exam, cervix visualized with white-yellow mucus apparent. Negative Valsalva, negative pooling, no ferning, nitrazine negative. Wet mount without pathogens. Reviewed results of today's exam with pt and plan for likely discharge home. Reviewed return precautions extensively. To bedside for US: DVP 3.88 FHR WNL Cosigned by Jorge L Black MD at 10/18/2024 9:44 AM CDT Associated attestation - Jorge L Black MD - 10/18/2024 9:44 AM CDT I have seen and examined the patient on 10/17/2024. I agree with the findings and plan of care as discussed with and documented by resident physician Corrine Hernandez MD (PGY-2). I have reviewed the limited TAUS as performed by Dr. Hernandez. This demonstrates a aragon intrauterine with FHR 148 bpm and MVP 3.88 cm. 10/17/2024 - - Matthias Nathan MD Antepartum Progress Note Gestational Age: 21w4d Admission Date: 10/16/2024 Length of stay: 0 Admission Diagnosis: r/o previable PPROM c/b: h/o FGR, VZV equiv SUBJECTIVE - NAEON -Reports active movement. No vaginal bleeding/leakage of fluid/contractions. Review of Systems Negative except as per above. OBJECTIVE Vitals: Temp Min: 36.5 C (97.7 F) Max: 36.7 C (98.1 F) Pulse Min: 94 Max: 108 BP Min: 93/63 Max: 124/81 Resp Min: 16 Max: 18 SpO2 Min: 98 % Max: 99 % FHR: +DTs Physical Exam General: No acute distress. Appears stated age and cooperative. Cardiovascular: Regular rate and rhythm. Lungs: Non-labored on RA Abdomen: Soft, non-tender, gravid. Extremities: Warm and well-perfused. No bilateral lower extremity edema or calf tenderness. Pelvic: Deferred. Neurologic: Alert and oriented x4, non-focal Lab Review: Recent Results (from the past 24 hours) POCT urinalysis (Clinitek) Collection Time: 10/16/24 12:58 PM Result Value Ref Range Color, ur, POC Yellow Yellow Clarity, UA, POC Clear Clear Glucose, ur, POC Negative Negative Bilirubin, ur, POC Negative Negative Ketones, ur, POC Negative Negative Specific gravity, ur, POC 1.015 1.010 - 1.025 Blood, ur, POC 1+ (A) Negative pH, ur, POC 7.0 Protein, ur, POC Negative Negative Urobilinogen, ur, POC 0.2 mg/dL mg/dL Nitrites, ur, POC Negative Negative Leukocyte esterase, ur, POC Trace (A) Negative ROM Plus (IGFBP-1/AFP) Collection Time: 10/16/24 1:33 PM Result Value Ref Range IFG Binding Protein-1 / AFP Negative ROM Plus (IGFBP-1/AFP) Collection Time: 10/16/24 3:39 PM Result Value Ref Range IFG Binding Protein-1 / AFP Negative CBC without differential Collection Time: 10/16/24 5:32 PM Result Value Ref Range WBC 9.2 3.8 - 9.9 K/cumm Hgb 10.9 (L) 11.9 - 15.5 g/dL Hct 31.1 (L) 35.6 - 45.5 % Plt 218 150 - 400 K/cumm MPV 9.4 9.1 - 12.3 fL RBC 3.35 (L) 3.90 - 5.20 M/cumm MCV 92.8 81.3 - 96.4 fL MCH 32.5 27.1 - 33.3 pg MCHC 35.0 32.3 - 35.7 g/dL RDW CV 13.0 11.1 - 14.9 % RDW SD 43.8 35.7 - 48.1 fL NRBC abs 0.00 0.00 - 0.01 K/cumm Type and screen Collection Time: 10/16/24 5:32 PM Result Value Ref Range ABO Rh A Positive Danial, indirect Negative N. gonorrhoeae/C. trachomatis Amplification Urine Collection Time: 10/16/24 5:51 PM Specimen: None; Urine Result Value Ref Range C. trachomatis Not Detected Not Detected N. gonorrhoeae Not Detected Not Detected Trichomonas vaginalis PCR Urine Collection Time: 10/16/24 5:51 PM Specimen: Urine Result Value Ref Range Trichomonas DNA Not Detected Not Detected ASSESSMENT/PLAN Heriberto Angel is a 24 y.o. at 21w4d admitted for r/o PPROM . #r/o previable PPROM - History and initial exam c/w PPROM, however ROM+ negative x2 with adequate fluid on BSUS - Encouraged given high negative predictive value of ROM+ - NG/CT/Trich neg, UCx pending - Discussed with patient significant implications on remainder of if rupture is confirmed - Briefly discussed that if previable PPROM is diagnosed, she has options for outpatient management, procedural management, or inpatient management with escalation of interventions as GA progresses Plan: - For repeat rupture exam today, consider amnio dye test if exam is equivocal - For MFM and NICU consultation if PPROM confirmed #FWB #Hx FGR - BSUS 10/16: EFW 409g (34%ile) - fUS (09/30): 287 g (56%ile) - BMZ, Mg, PCN, Peds c/s deferred on admission - MONITORING PLAN: daily doptones #MWB #VZV Equiv - PNL: Rh +/Ab -/HIV NR/Rub Imm/VZV equiv/RPR NR/HepB NR/GC/CT neg/neg - 1 hr GTT TBD - 3T HIV/RPR in 3T - Tdap offer at 28w - Rhogam n/a - GBS collected - MOD: TBD - MOF: TBD - MOC: TBD Carisa Nathan MD MPH PGY2 OBGYN Cosigned by Jorge L Black MD at 10/18/2024 9:52 AM CDT Associated attestation - Jorge L Black MD - 10/18/2024 9:52 AM CDT I have seen and examined the patient on 10/17/2024. I agree with the findings and plan of care as documented by resident physician Rosa Nathan MD (PGY-2). Heriberto Angel is a 24 y.o. female at 21w4d weeks gestation admitted for rule out of previable PPROM. Reported active movement. Denied further leakage of fluid, vaginal bleeding, or contractions. Repeat exam by Dr. Hernandez without evidence of PPROM and continued stable MVP of 3.88 cm. Findings overall suggest against previable PPROM. Patient reporting 2-7/10 unilateral headache with photophobia without phonophobia/nausea/emesis. Symptoms suggestive of likely migraine headache that improved with compazine. Discussed appropriate hydration, regular meals, use of acetaminophen and caffeine, as well as metoclopramide/diphenhydramine. BP's otherwise normotensive and denies other signs/symptoms of pre-eclampsia. Given reassuring exam and work up at this time, patient stable for discharge. Routine discharge instructions and labor return precautions reviewed. All questions were answered to her satisfaction and she voiced understanding. Discharged to home with plan for outpatient follow up as previously scheduled. 10/16/2024 - w3d - Daniela waite, Rosa Reddy MD Images from the original note were not included. [facility] Update To bedside for repeat exam. SSE with negative pooling, negative valsalva. Visualized ferning on previously collected slide. ROM plus re-collected. BSUS with breech presentation, DVP 4.6 cm, RENETTA 12 cm, EFW 409g (34%ile). Rosa Jones MD Obstetrics and Gynecology, PGY-2 10/16/2024 - 21w3d - Elizabeth Painter NP Images from the original note were not included. Obstetrics H&P Chief Complaint: Leakage of fluid Estimated Date of Delivery: 02/23/25 Provider: [facility] OBGYN HPI: Heriberto Angel is a 24 y.o. female at 21w3d gestation, dated by 1st trimester ultrasound here today for leakage of fluid. States this started this am when she woke up around 0800. She was cramping right when she woke up, but isn't anymore. No bleeding. She did feel her move this morning. Does have a mild headache, would like some Tylenol. Her is complicated by : First baby had IUGR Patient Denies: [] Contractions [x] Shortness of Breath [x] Nausea/Vomitting [x] Vaginal Bleeding [] Headache [x] Abdominal Pain [] Leaking of Fluid [x] Visual changes [x] Decreased Movement OB History Para Term AB Living 2 1 1 0 0 1 SAB IAB Ectopic Multiple Live Births 0 0 0 0 1 # Outcome Date GA Lbr Qasim/2nd Weight Sex Type Anes PTL Lv 2 Current 1 Term 05/20/22 37w1d 19:00 / 01:39 2380 g (5 lb 4 oz) F Vag-Spont EPI N ALISA Name: SHANTEL ANGEL Apgar1: 8 Apgar5: 7 FOOD PREP WORKER History: Patient's last menstrual period was 05/19/2024. History of Abnormal Pap: None STD History: None Past Medical History: Diagnosis Date Childhood asthma Mild intermittent asthma without complication 12/11/2022 Raynaud's phenomenon Chronic hypertension: No Diabetes: No Asthma: No History reviewed. No pertinent surgical history. Social History Tobacco Use Smoking status: Never Smokeless tobacco: None Substance and Sexual Activity Drug use: Yes Types: Alcohol Comment: social Sexual activity: Yes Partners: Male control/protection: I.U.D. Alcohol Use: Not on file Support System: Supported by her Safe at home: Yes family history includes Alzheimer's disease in her paternal grandfather; Colon cancer in her paternal grandmother; Hypertension in her paternal grandmother; No Known Problems in her father and mother. Family history of bleeding or clotting disorders: No Family history of defects, genetic disorders, or developmental delay: No Allergies Allergen Reactions Penicillins Rash HOME MEDICATIONS : acetaminophen 500 mg capsule ondansetron ODT (ZOFRAN-ODT) 4 mg disintegrating tablet PNV no.95/ferrous fum/folic ac ( ORAL) [id number] acid 29 mg iron- 1 mg tablet,chewable Se- 19 Chewable 29 mg iron- 1 mg tablet,chewable Review of Sys: Negative except per HPI Vitals: Temp: [36.5 C (97.7 F)] 36.5 C (97.7 F) Pulse: [94] 94 Resp: [18] 18 BP: (124)/(81) 124/81 Physical Exam: General: NAD, mood appropriate Cardiovascular: Regular rate and rhythm Pulmonary: Clear to ausculation bilaterally Abdomen: Gravid, non-tender Extremities: Warm and well perfused Speculum Exam: Nitrizine test is positive, Ferning test is positive, and some pooling at cervical os. Sent a ROM plus for confirmatory results. Cervix: Visually closed. Monitoring: FHR: 144 bpm. Ultrasound: DVP: 4.43 cm Labs: Lab Results Component Value Date ABORH A Positive 05/19/2022 SCRIBEDABORH A+ 10/31/2021 IDCOOMB Negative 05/19/2022 SCRINDANTIGL negative 10/31/2021 [id number] Nonreactive 04/29/2022 [id number] NON-REACTIVE 08/16/2024 [id number] Negative 10/31/2021 LABRPR NON-REACTIVE 08/16/2024 SCRRPR Non-Reactive 10/31/2021 RUBELIGG 2.83 08/16/2024 SCRRUBELIGG Immune 10/31/2021 HEPBSAG NON-REACTIVE 08/16/2024 VZVIGG 9.16 08/16/2024 Assessment and Plan +pooling, +nitrazine, and + ferning DVP on ultrasound was 4.43 cm-still good fluid on ultrasound. No contractions felt on ultrasound or on exam. ROM + was negative x2. Plan discussed with Dr. Seo. She will be admitted to [facility] for monitoring-she is agreeable to this plan. [facility] assumed care at 1730. Elizabeth Gooden NP 10/16/24 Progress Notes - Office Visi t - 09/30/2024 - GA:19w1d 09/30/2024 - 19w1d - Tiny Arango MD EOB Visit Patient reports doing well today. She denies contractions, vaginal bleeding and leakage of fluid. She endorses good movement. Anatomy US today with EFW AGA and normal and maternal anatomic survey. Endorses intermittent itching - sometimes on abdomen/trunk, yesterday on soles of feet. Will obtain bile acids and CMP. WAC precautions reviewed. RTC in 4 weeks. RNATIONAL LOGISTICS MANAGER Progress Notes - Office Visi t - 09/06/2024 - GA:15w5d 09/06/2024 - 15w5d - Beatriz Hebert MD EOB Visit at 15w5d Patient reports doing well today. Nausea is resolving! No longer needing Zofran. Has been taking Flinstones regular MVI instead of due to nausea, discussed restarting . Sent chewable to pharmacy. No further episodes of vaginal bleeding since spotting in early . No regular cramping. RTC in 4 weeks for anatomy scan and EOB. Beatriz Hebert MD RNATIONAL LOGISTICS MANAGER Progress Notes - Procedure v isit - 08/08/2024 - GA:11w4d 08/08/2024 - 11w4d - Nigel Gardiner RN Cell free DNA obtained x1 stick with no complications. Pt DOES desire to know sex, informed pt it would be on [employer] results when released, pt verbalized understanding. Kit# [id number] RNATIONAL LOGISTICS MANAGER Progress Notes - Office Visi t - 08/08/2024 - GA:11w4d 08/08/2024 - - Hiwot Dennye NP YOU - Denies lof,bleeding and or cramping - reminded to complete 1t labs - CFDNA today RTC in 4 weeks Carisa Denney APRN, TARUN-BC RNATIONAL LOGISTICS MANAGER Progress Notes - Office Visi t - 07/18/2024 - GA:8w4d 07/18/2024 - w - Sarah Calhoun MD Maternal Medicine Consult Note Reason for Consult: history of FGR Requesting Provider: Dr. Quezada Dear Dr. Quezada, We had the pleasure of seeing your patient Heriberto Angel in our office today. As you know, she is a 23 y.o. at 8w4d here today for a consult regarding her history of growth restriction. Her is also complicated by childhood asthma and Raynaud's. Today she is doing well, she reports mild nausea for which she takes Zofran PRN and some slight spotting, no cramping, and no JOAN on ultrasound today. Past Medical History: Diagnosis Date Childhood asthma Mild intermittent asthma without complication 12/11/2022 Raynaud's phenomenon History reviewed. No pertinent surgical history. Current Outpatient Medications Medication Instructions acetaminophen 1,000 mg, oral, Every 6 hours PRN ondansetron ODT (ZOFRAN-ODT) 4 mg, oral, Every 8 hours PRN PNV no.95/ferrous fum/folic ac ( ORAL) Take by mouth Allergies Allergen Reactions Penicillins Rash Social History Tobacco Use Smoking status: Never Smokeless tobacco: None Substance and Sexual Activity Drug use: Yes Types: Alcohol Comment: social Sexual activity: Yes Partners: Male control/protection: I.U.D. Alcohol Use: Not on file OB History Para Term AB Living 2 1 1 1 SAB IAB Ectopic Multiple Live Births 0 1 # Outcome Date GA Lbr Qasim/2nd Weight Sex Type Anes PTL Lv 2 Current 1 Term 05/20/22 37w1d 19:00 / 01:39 2.38 kg (5 lb 4 oz) F Vag-Spont EPI N ALISA Past Gynecologic History: Prior STIs: none History of abnormal pap: no Last pap smear: normal Patient's last menstrual period was 05/19/2024. Denies history of uterine anomalies or fibroids Family History: Family History Problem Relation Age of Onset Alzheimer's disease Paternal Grandfather Hypertension Paternal Grandmother Colon cancer Paternal Grandmother No Known Problems Father No Known Problems Mother Breast cancer Neg Hx Uterine cancer Neg Hx Ovarian cancer Neg Hx Neural tube defects: No Down syndrome or other chromosomal anomalies: No Hemophilia, sickle cell, bleeding/clotting disorder: No Muscular dystrophy: No Cystic fibrosis: No Intellectual disability or Fragile X: No [place] disease: No Other defects or genetic disorders: No Dating: ALMA of Estimated Date of Delivery: 02/23/25 based on L=1 Review of Systems Constitutional: Negative. Respiratory: Negative. Cardiovascular: Negative. Gastrointestinal: Negative. Genitourinary: Negative. Musculoskeletal: Negative. Neurological: Negative. Psychiatric/Behavioral: Negative. Physical Exam Vitals BP 98/67 Pulse 82 Wt 139 lb 12.8 oz (63.4 kg) LMP 05/19/2024 SpO2 98% BMI 23.26 kg/m General: Healthy, alert, active, cooperative, and in no distress Heart: Regular rate Lungs: Non-labored respirations Abdomen: Non-tender Extremities: Warm and well-perfused The rest of the exam was deferred due to the consultative nature of this visit. Ultrasound 07/18/2024: 8w4d Live IUP Please see the separate report for full details Assessment: Ms. Heriberto Angel is a nathalia 23 y.o. at 8w4d here today for a consult regarding: Recommendations: Problem Nausea and Vomiting in Taking Zofran PRN Plan Continue Zofran, refill sent to pharmacy Raynaud's Disease History No history of skin thickening, ulceration, [...] nifedipine. Plan/Recommendations Routine care, supportive care Previous Baby With Growth Restriction History - Patient had FGR in previous [...] starting at 24 weeks, every 4 weeks Thank you for the opportunity to be involved in the care of your patient. She will continue her care with your office. Should you have any further questions or concerns, please do not hesitate to call us. Sarah Calhoun MD RNATIONAL LOGISTICS MANAGER RNATIONAL LOGISTICS MANAGER Progress Notes - Office Visi t - 07/07/2024 - GA:7w0d 07/07/2024 - 7w0d - Nigle Snyder RN Met with Heriberto Angel today for initial/first trimester visit teaching. Discussed the practice reviewed that group is comprised of 1 male physician, 6 female physicians, and 2 female nurse practitioners. Reviewed safe medications, appropriate diet, exercise/activity, travel, animals and vaccinations. Pt had specific questions that were answered appropriately. Desires cfDNA. RNATIONAL LOGISTICS MANAGER 07/07/2024 - 7w0d - Tiny Quezada MD Initial OB Visit Subjective: Heriberto Angel is a 23 y.o., at 7w0d, based on LMP and 1st trimester U/S, who presents for initial visit. Her obstetrical history is significant for asthma and history of FGR in prior . Past history fully reviewed. She reports mild fatigue and nausea. No issues with bowel or bladder function. Light intermittent vaginal spotting, but no cramping/pelvic pain. Menstrual History: Menarche Age: 11 years Patient's last menstrual period was 05/19/2024. Period Cycle (Days): 28 Period Duration (Days): 4 Period Pattern: Regular Sexual History: Sexual History Gender of sexual partners: Men Sexually Transmitted Infection History: None Sexual Assault: No OB History 2 Para 1 Term 1 AB Living 1 SAB IAB Ectopic Multiple 0 Live Births 1 # Outcome Date GA Labor/2nd Weight Sex Type Anes PTL Lv A1 A5 1 Term 05/20/22 37w1d 19h 00m / 1h 39m 2.38 kg (5 lb 4 oz) F Vag-Spont Epidural N Living 8 7 Name: SHANTEL ANGEL Location: Other Delivering Clinician: Jennifer Shepherd MD 2 Current Past medical, surgical, and FOOD PREP WORKER history fully reviewed. ROS as per HPI. Objective: BP 112/67 Ht 165.1 cm (5' 5) Wt 140 lb (63.5 kg) LMP 05/19/2024 BMI 23.30 kg/m General: Alert and oriented, No acute distress. HENMT: Normocephalic. Respiratory: Respirations are non-labored. Cardiovascular: Normal peripheral perfusion. Gastrointestinal: Non-distended. Integumentary: Warm, Dry, No visible rash. Neurologic: No focal deficits. Psychiatric: Cooperative, Appropriate mood & affect, Normal judgment. Gynecologic: Normal external female genitalia. See flow sheet for gestation -specific examination and vitals. See Episode Report for physical of record. Ultrasound findings: Transvaginal ultrasound early Indication: Confirm viability and dating Uterus: normal Single IUP: CRL 0.64 cm, consistent with 6w3d EGA, consistent with dating by LMP FHM= 125bpm Normal adnexa bilaterally. Impression: viable IUP Final ALMA 02/23/2025 Assessment: Patient is a 23 y.o., at 7w0d, with a aragon confirmed on U/S today. Problem list reviewed and updated: ALMA 02/23/25 Problems (from 06/27/24 to present) Problem Noted Diagnosed Resolved Supervision of other normal , antepartum 06/28/2024 by Nigel Snyder RN No Priority: High Overview Addendum 07/07/2024 2:11 PM by Tiny Quezada MD -h/o FGR with elevated Dopplers (delivered at 37 weeks) -asthma -raynaud's [x] Initial BMI: 23 [] Labs: [] Genetic Screening: plans NIPT [x] Baby ASA: yes @ 12 weeks [] 1hr GCT at 24-28wks: [] Tdap (27-36wks): [] Flu Shot: [] RSV Vaccine in season (32.0-36.6): [] COVID vaccine: [] Rhogam (if Rh neg): [] GBS at 36 wks: [] [] control method: [] 39 weeks discussion of IOL vs. Expectant management: [] Mode of delivery: [] For C/S bottle of CHG 4% and hand out provided @ 36wks Teaching: [x] 1st visit [] 28-30 week [] 36 week Supervision of high-risk , first trimester 06/27/2024 by Daphne Kim RMA No Overview Signed 06/27/2024 1:15 PM by Daphne Kim RMA SEROLOGIES NEEDED [] Co-management vs. [] Full MFM Care; [] Red Team [] Blue Team Referring Provider: Self Referral. Prior MFM pt. [] or Medicare Insurance [x] Dating Criteria: LMP 05/19/24 with ALMA 02/23/25 [] Labs: Rh [ ], Ab [ ], Rubella [ ], HIV [ ], HepBSAg [ ], HepBSAb [ ], HepBCAb [ ], RPR [ ], Hep C [ ], Varicella [ ], GC/CT [ ] [] Aneuploidy Screening: [] Carrier Screening: [] Hgb electrophoresis: [] CBC/Hgb: [] Early 1hr GTT (if indicated): [] UCx: [x] Pap: 12/22/23: NILM [] LD ASA (if indicated): [] EPDS [ ]; PNBHS referral (if indicated): 2nd Trimester [] Anatomy ultrasound: [] CBC/1hr gtt at 24-28wks: [] Rhogam at 28 wks (if Rh neg): 3rd Trimester [] CBC/HIV/RPR/T&S: [] GBS: [] GC/CT (if indicated): [] testing: Counseling [] MOD: [] Place of delivery: [] Epidural: [] Accepts Blood Products: [] Stop ASA: [] MOC: [] Method of feeding: [] Machine Learning Intern (specifically which provider): [] PP Depression Discussed: [] PP visits scheduled: Vaccines [] Flu Shot (Mar-Jun): [] COVID vaccine: [] Tdap (27-36wks): [] RSV vaccine (32-36wks): [] PP HPV vaccine counseling (<=26 yo): Raynaud's disease 12/11/2022 by Brunilda Winter MD No Previous baby with growth restriction 12/11/2022 by Brunilda Winter MD No Plan: vitamin with DHA discussed Labs ordered Discussed genetic testing - patient plans NIPT Genetic counseling - considering carrier testing Role of ultrasound in discussed. survey ordered. Patient to meet with OB nurse educator to review exercise, diet, medications, precautions. Additional concerns: see above problem list MFM consult scheduled in 2 weeks. Follow up in 4 weeks. Tiny Quezada MD 07/07/2024 RNATIONAL LOGISTICS MANAGER Progress Notes - Hospital En counter - 07/04/2024 - GA:6w4d 07/04/2024 - 6w4d - Kacie berrios, Tiny Bhatt NP Obstetrics H&P Chief Complaint: N/V Estimated Date of Delivery: 02/23/25 Provider: CARLOS HPI: Heriberto Angel is a 23 y.o. female at 6w4d gestation, dated by 1st trimester ultrasound Her is complicated by Raynaud's,hx of baby with fgr, Here for N/V x 24 hours. Has not been able to hold down water. Feels worse than her regular morning sickness. Denies VB and LOF. OB History Para Term AB Living 2 1 1 0 0 1 SAB IAB Ectopic Multiple Live Births 0 0 0 0 1 # Outcome Date GA Lbr Qasim/2nd Weight Sex Type Anes PTL Lv 2 Current 1 Term 05/20/22 37w1d 19:00 / 01:39 2380 g (5 lb 4 oz) F Vag-Spont EPI N ALISA Name: SHANTEL ANGEL Apgar1: 8 Apgar5: 7 FOOD PREP WORKER History: Patient's last menstrual period was 05/19/2024. History of Abnormal Pap: None STD History: none Past Medical History: Diagnosis Date Childhood asthma Mild intermittent asthma without complication 12/11/2022 Raynaud's phenomenon Chronic hypertension: No Diabetes: No Asthma: No No past surgical history on file. Social History Tobacco Use Smoking status: Never Smokeless tobacco: Not on file Substance and Sexual Activity Drug use: Yes Types: Alcohol Comment: social Sexual activity: Yes Partners: Male control/protection: I.U.D. Alcohol Use: Not on file Support System: Not addressed Safe at home: Yes family history includes Alzheimer's disease in her paternal grandfather; Colon cancer in her paternal grandmother; Hypertension in her paternal grandmother; No Known Problems in her father and mother. Family history of bleeding or clotting disorders: No Family history of defects, genetic disorders, or developmental delay: No Allergies Allergen Reactions Penicillins Rash HOME MEDICATIONS : acetaminophen 500 mg capsule norethindrone-e.estradioL-iron (Loestrin Fe 08/15, 28-Day,) 1 mg-20 mcg (21)/75 mg (7) per tablet Review of Sys: Negative except per HPI Vitals: Temp: [36.9 C (98.4 F)] 36.9 C (98.4 F) Pulse: [128] 128 Resp: [16] 16 BP: (114)/(70) 114/70 Physical Exam: General: NAD, mood appropriate Cardiovascular: Regular rate and rhythm Pulmonary: Clear to ausculation bilaterally Abdomen: Gravid, non-tender Extremities: Warm and well perfused Ultrasound: +FCA Labs: Lab Results Component Value Date ABORH A Positive 05/19/2022 SCRIBEDABORH A+ 10/31/2021 IDCOOMB Negative 05/19/2022 SCRINDANTIGL negative 10/31/2021 [id number] Nonreactive 04/29/2022 [id number] Negative 10/31/2021 LABRPR Nonreactive 05/19/2022 SCRRPR Non-Reactive 10/31/2021 SCRRUBELIGG Immune 10/31/2021 [id number] Equivocal (A) 01/20/2023 Assessment and Plan #N/V POCT UA Zofran odt with improvement PO challenged #FWB +FCA on US Patient to continue taking medications as prescribed, follow up with MFM on 07/07/2024 Strict return precautions given. Patient had no further questions, verbalized understanding of discharge plan/instructions and was DCd home in Stable condition. Plan discussed with Dr. Coronado. Ok for discharge. Tiny Strange NP 07/04/24 RNATIONAL LOGISTICS MANAGER Progress Notes - Abstract - 06/27/2024 - GA:5w4d 06/27/2024 - 5w4d - Daphne Topete RMA Pt has not been seen yet for this . 2021 MFM and delivery records are in [facility]. PCP records are also in [facility]. Most recent visit was 03/04/24. RNATIONAL LOGISTICS MANAGER Last Filed Vital Signs Vital Sign Reading [...] 02/11/2025 8:00 PM CDT Plan of Treatment Health Maintenance Due Date Last Done Comments Pneumococcal vaccine <65 (1 of 2 - PCV) 2017 Covid-19 Vaccine (3 - season) 2024 04/28/2021, 04/07/2021 Cervical Cancer Screening 12/21/2024 12/22/2023 HPV Vaccines (1 - 3-dose series) 03/04/2025 Postponed from 2013 (Patient declined, but will receive in the future) Regular Well Visit/Exam 18-64 03/04/2025 03/04/2024, 12/22/2023, 12/09/2022 Influenza Vaccine (#1) 2025 05/13/2024, 2021 Depression Screening 12/08/2025 12/08/2024, 12/08/2024, 03/04/2024, Additional history exists DTaP/Tdap/Td Vaccine (3 - Td or Tdap) 11/24/2034 11/24/2024, 04/03/2022 Hepatitis B Screening Completed 10/31/2021 Varicella Vaccines Discontinued 01/05/2023 Hepatitis C Screening Completed 08/16/2024, 022 Procedures Procedure Name Priority Date/Time Associated Diagnosis Comments AR AN PROCEDURE PLACEHOLDER Routine 02/12/2025 1:27 AM [...] HEPATITIS C ANTIBODY Routine 08/16/2024 10:43 AM INTERNATIONAL LOGISTICS MANAGER Supervision of other normal , antepartum PAP WITH REFLEX TO HIGH RISK HPV Routine 12/22/2023 3:03 PM CDT Well woman exam from Last 3 Months or Most Recently Relevant to Health Maintenance Results * AR AN PROCEDURE PLACEHOLDER (02/12/2025 1:27 AM CDT) Narrative Timi Dumont CRNA - 02/12/2025 1:27 AM CDT Timi Dumont CRNA 02/12/2025 1:28 AM Epidural Block Patient location: L&D Reason for block: primary anesthetic Staff: Supervising provider: Vielka Navarrete MD Placed by: WEDGER AND GLUER: Timi Dumont CRNA Procedure prep: Preprocedure checklist: [...] well with no complications Additional comments: [place] 4.5 us Vielka Navarrete MD ANESTHESIA ORDERABLES Final [...] MD LAB BLOOD ORDERABLES Yari l Result [facility] [place] [address] * RPR Blood (02/11/2025 10:06 PM CDT) RPR Nonreactive Nonreactive Blood 02/11/2025 10:0 6 PM CDT 02/11/2025 10:17 PM CDT us Jorge L Black MD LAB MICROBIOLOGY - GENERA L ORDERABLES Final Result Performing Organization Address [facility] de Phone Number [facility] Department [place] [address] * (ABNORMAL) CBC without differential (02/11/2025 10:06 PM CDT) WBC 11.84(H) 3.80 - 9.90 K/cumm Hgb 11.7(L) 11.9 - 15.5 g/dL [facility] Hct 33.3(L) 35.6 - 45.5 % [facility] Plt 214 150 - 400 K/cumm [facility] MPV 9.8 9.1 - 12.3 fL [facility] RBC 3.77(L) 3.90 - 5.20 M/cumm [facility] MCV 88.3 81.3 - 96.4 fL [facility] MCH 31.0 27.1 - 33.3 pg [facility] MCHC 35.1 32.3 - 35.7 g/dL [facility] RDW CV 13.7 11.1 - 14.9 % [facility] RDW SD 44.5 35.7 - 48.1 fL [facility] NRBC abs 0.00 0.00 - 0.01 K/cumm [facility] Blood 02/11/2025 10:0 6 PM CDT 02/11/2025 10:17 PM CDT Jorge L Black MD LAB BLOOD ORDERABLES Yari l Result Performing Organization Address [facility] Co de Phone Number [facility] Department [place] [address] * Type and screen (02/11/2025 10:06 PM CDT) Pathologist [facility] ABO Rh A Positive Danial, indirect Negative [facility] Blood 02/11/2025 10:0 6 PM CDT 02/11/2025 10:24 PM CDT Narrative [facility] - 02/11/2025 11:20 PM CDT Has the patient had Daratumumab or Isatuximab in the past 6 months?->Unknown Jorge L Black MD LAB BLOOD BANK TEST ORDER PRAFUL Final Result Performing Organization Address City/[facility]/ZIP Co de Phone Number [facility] Department [place] [address] * (ABNORMAL) Basic metabolic panel (02/11/2025 10:06 PM CDT) [facility] Sodium 138 135 - 145 mmol/L Potassium, pl 3.9 3.3 - 4.9 mmol/L [facility] Chloride 104 97 - 110 mmol/L [facility] CO2 21(L) 22 - 32 mmol/L [facility] Anion gap 13 2 - 15 mmol/L [facility] BUN 8 6 - 25 mg/dL [facility] Creatinine 0.58(L) 0.60 - 1.10 mg/dL [facility] Glucose 76 70 - 199 mg/dL [facility] Comment: Interpretive Data Fasting glucose >/= 126 [...] 2022. Calcium 9.2 8.5 - 10.3 mg/dL [facility] Blood 02/11/2025 10:0 6 PM CDT 02/11/2025 10:17 PM CDT Jorge L Black MD LAB BLOOD ORDERABLES Yari l Result Performing Organization Address City/[facility]/ZIP Co de Phone Number [facility] [place] [address] * (ABNORMAL) POCT urinalysis (Clinitek) (02/11/2025 8:36 PM CDT) Color, ur, POC Yellow Yellow Clarity, UA, POC Clear Clear [facility] Glucose, ur, POC Negative Negative [facility] Bilirubin, ur, POC Negative Negative [facility] Ketones, ur, POC Negative Negative [facility] Specific gravity, ur, POC <=1.005(A) 1.010 - 1.025 [facility] Blood, ur, POC Trace(A) Negative [facility] pH, ur, POC 6.5 [facility] Comment: Interpretive Data Urine pH is affected by diet, medications, systemic acid-base disturbances, and renal tubular function. pH may affect urinary stone formation. For example, urine pH below 6.0 may help reduce the tendency for calcium phosphate stones and pH greater than 6.0 may reduce the tendency for uric acid stone formation. Source: [place] [employer]. Last Revised Date: 08-06-2017 Protein, ur, POC Negative Negative [facility] Urobilinogen, ur, POC 0.2 mg/dL mg/dL [facility] Nitrites, ur, POC Negative Negative [facility] Leukocyte esterase, ur, POC Negative Negative [facility] Urine 02/11/2025 8:36 PM CDT 02/11/2025 8:36 PM CDT us Jorge L Black MD LAB POCT ORDERABLES - DEV ICE Final Result [facility] [place] [address] * (ABNORMAL) POCT urinalysis (Clinitek) (01/27/2025 5:35 PM CDT) Color, ur, POC Yellow Yellow Clarity, UA, POC Clear Clear [facility] Glucose, ur, POC Negative Negative [facility] Bilirubin, ur, POC Negative Negative [facility] Ketones, ur, POC Negative Negative [facility] Specific gravity, ur, POC 1.010 1.010 - 1.025 [facility] Blood, ur, POC Trace(A) Negative [facility] pH, ur, POC 6.0 [facility] Comment: Interpretive Data Urine pH is affected by diet, medications, systemic acid-base disturbances, and renal tubular function. pH may affect urinary stone formation. For example, urine pH below 6.0 may help reduce the tendency for calcium phosphate stones and pH greater than 6.0 may reduce the tendency for uric acid stone formation. Source: [facility] [employer]. Last Revised Date: 08-06-2017 Protein, ur, POC Negative Negative [facility] Urobilinogen, ur, POC 0.2 mg/dL mg/dL [facility] Nitrites, ur, POC Negative Negative [facility] Leukocyte esterase, ur, POC Negative Negative [facility] Urine 01/27/2025 5:35 PM CDT 01/27/2025 5:35 PM CDT Jorge L Black MD LAB POCT ORDERABLES - DEV ICE Final Result Performing Organization Address [facility] Co de Phone Number [facility] [place] [address] * N. gonorrhoeae/C. trachomatis Amplification Urine (01/25/2025 6:37 AM CDT) Pathologist [facility] C. trachomatis Not Detected Not Detected [facility] N. gonorrhoeae Not Detected Not Detected [facility] Comment: Interpretive Data This assay detects Chlamydia trachomatis and Neisseria gonorrhoeae by nucleic acid amplification testing (NAAT). This assay has been cleared by the [place] Food and Drug administration. The performance characteristics of this test have been verified by the [facility] Molecular Infectious Disease laboratory. The performance characteristics of this test have not been evaluated in individuals less than 14 years of age. Current Interpretive Data last revised 2023. Urine (None) 01/25/2025 6:37 AM CDT 01/25/2025 8:15 AM CDT Jorge L Black MD LAB MICROBIOLOGY - GENERA L ORDERABLES Final Result Performing Organization Address [facility]/[place] [address] [facility] * Trichomonas vaginalis PCR Urine (01/25/2025 6:37 AM CDT) Pathologist [facility] Trichomonas DNA Not Detected Not Detected [facility] Urine 01/25/2025 6:37 AM CDT 01/25/2025 8:15 AM CDT Narrative [facility] - 01/25/2025 9:26 AM CDT Interpretive Data: This assay detects Trichomonas vaginalis by nucleic acid amplification testing (NAAT). This assay has been cleared by the [place] Food and Drug administration. The performance characteristics of this test have been verified by the [facility] Molecular Infectious Disease laboratory. Excess blood in specimens may be inhibitory and result in false negative results. The performance of this test has not been evaluated in women or individuals less than 18 years of age. Jorge L Black MD LAB MICROBIOLOGY - [employer] L ORDERABLES Final Result Performing Organization Address [facility] [place] [address] [facility] * HIV 1/2 Antibody plus p24 Antigen [...] 1:04 PM CDT 01/24/2025 1:16 PM CDT Jorge L Black MD LAB MICROBIOLOGY - GENERA L ORDERABLES Final Result Performing Organization Address [facility] [place] [address] * eGFR (01/24/2025 10:46 AM CDT) eGFR [...] NP LAB BLOOD ORDERABL ES Final Result [facility] [place] [address] * (ABNORMAL) Differential, auto (01/24/2025 10:46 AM CDT) Neutrophil abs 9.95(H) 1.50 - 6.50 K/cumm Imm gran abs 0.12(H) 0.00 - 0.10 K/cumm [facility] Lymphocyte abs 1.44 0.80 - 3.30 K/cumm [facility] Monocyte abs 0.73 0.20 - 0.80 K/cumm [facility] Eosinophil abs 0.02 0.00 - 0.50 K/cumm [facility] Basophil abs 0.03 0.00 - 0.10 K/cumm [facility] Neutrophil pct 81.0 % [facility] Comment: Interpretive Data Percent cell count reference ranges are not reported, since discordance with absolute values may lead to misinterpretation of CBC data. Current Interpretive Data was last revised on 2017. Imm gran pct 1.0 % [facility] Comment: Interpretive Data Percent cell count reference ranges are not reported, since discordance with absolute values may lead to misinterpretation of CBC data. Current Interpretive Data was last revised on 2017. Lymphocyte pct 11.7 % [facility] Comment: Interpretive Data Percent cell count reference ranges are not reported, since discordance with absolute values may lead to misinterpretation of CBC data. Current Interpretive Data was last revised on 2017. Monocyte pct 5.9 % [facility] Comment: Interpretive Data Percent cell count reference ranges are not reported, since discordance with absolute values may lead to misinterpretation of CBC data. Current Interpretive Data was last revised on 2017. Eosinophil pct 0.2 % [facility] Comment: Interpretive Data Percent cell count reference ranges are not reported, since discordance with absolute values may lead to misinterpretation of CBC data. Current Interpretive Data was last revised on 2017. Basophil pct 0.2 % [facility] Comment: Interpretive Data Percent cell count reference ranges are not reported, since discordance with absolute values may lead to misinterpretation of CBC data. Current Interpretive Data was last revised on 2017. Blood 01/24/2025 10:4 6 AM CDT 01/24/2025 11:00 AM CDT us Tiny Strange FACING SLITTER LAB BLOOD ORDERABL ES Final Result [facility] Department [place] [address] * (ABNORMAL) CBC with auto differential (01/24/2025 10:46 AM CDT) WBC 12.29(H) 3.80 - 9.90 K/cumm Hgb 11.2(L) 11.9 - 15.5 g/dL [facility] Hct 32.5(L) 35.6 - 45.5 % [facility] Plt 199 150 - 400 K/cumm [facility] MPV 9.8 9.1 - 12.3 fL [facility] RBC 3.53(L) 3.90 - 5.20 M/cumm [facility] MCV 92.1 81.3 - 96.4 fL [facility] MCH 31.7 27.1 - 33.3 pg [facility] MCHC 34.5 32.3 - 35.7 g/dL [facility] RDW CV 13.7 11.1 - 14.9 % [facility] RDW SD 45.3 35.7 - 48.1 fL [facility] NRBC abs 0.00 0.00 - 0.01 K/cumm [facility] Blood 01/24/2025 10:4 6 AM CDT 01/24/2025 11:00 AM CDT Tiny Strange NP LAB BLOOD ORDERABL ES Final Result [facility] [place] [address] * Group B streptococcal culture Vaginal/Rectal Vaginal (01/24/2025 10:46 AM CDT) Report Final Report: Negative Vaginal/Rectal (Vaginal) 01/24/2025 10:46 AM CDT 01/24/2025 11:50 AM CDT Narrative [facility] - 01/26/2025 9:04 PM CDT Testing performed by [facility] Microbiology Laboratory ([phone]). Tiny Strange NP LAB MICROBIOLOGY - GENERAL ORDERABLES Final Result [facility] [place] [address] * RPR Blood (01/24/2025 10:46 AM CDT) [facility] RPR Nonreactive Nonreactive Blood 01/24/2025 10:4 6 AM CDT 01/24/2025 11:00 AM CDT Tiny Strange NP LAB MICROBIOLOGY - GENERAL ORDERABLES Final Result Performing Organization Address City/[facility] Co de Phone Number [facility] [place] [address] * Type and screen (01/24/2025 10:46 AM CDT) [facility] Danial, indirect Negative ABO Rh A Positive [facility] Blood 01/24/2025 10:4 6 AM CDT 01/24/2025 11:19 AM CDT Narrative [facility] - 01/24/2025 12:18 PM CDT Has the patient had Daratumumab or Isatuximab in the past 6 months?->Unknown Tiny Strange NP LAB BLOOD BANK CURLY T ORDERABLES Final Result Performing Organization Address [facility] de Phone Number [facility] [place] [address] * (ABNORMAL) Comprehensive metabolic panel (01/24/2025 10:46 AM CDT) [facility] Sodium 139 135 - 145 mmol/L Potassium, pl 4.0 3.3 - 4.9 mmol/L [facility] Chloride 108 97 - 110 mmol/L [facility] CO2 21(L) 22 - 32 mmol/L [facility] Anion gap 10 2 - 15 mmol/L [facility] BUN 7 6 - 25 mg/dL [facility] Creatinine 0.55(L) 0.60 - 1.10 mg/dL [facility] Glucose 82 70 - 199 mg/dL [facility] Comment: Interpretive Data Fasting glucose >/= 126 [...] 2022. Calcium 8.7 8.5 - 10.3 mg/dL [facility] Bilirubin, total 0.3 0.1 - 1.2 mg/dL [facility] Protein, pl 6.4(L) 6.5 - 8.5 g/dL [facility] Albumin 3.4(L) 3.5 - 5.0 g/dL [facility] Alk phos 118 40 - 130 Units/L [facility] ALT 15 7 - 45 Units/L [facility] AST 24 10 - 45 Units/L [facility] Blood 01/24/2025 10:4 6 AM CDT 01/24/2025 11:00 AM CDT Tiny Strange NP LAB BLOOD ORDERABL ES Final Result [facility] [place] [address] * (ABNORMAL) POCT urinalysis (Clinitek) (01/24/2025 8:56 AM CDT) Color, ur, POC Yellow Yellow Clarity, UA, POC Clear Clear [facility] Glucose, ur, POC Negative Negative [facility] Bilirubin, ur, POC Negative Negative [facility] Ketones, ur, POC Negative Negative [facility] Specific gravity, ur, POC 1.010 1.010 - 1.025 [facility] Blood, ur, POC Trace(A) Negative [facility] pH, ur, POC 7.0 [facility] Comment: Interpretive Data Urine pH is affected by diet, medications, systemic acid-base disturbances, and renal tubular function. pH may affect urinary stone formation. For example, urine pH below 6.0 may help reduce the tendency for calcium phosphate stones and pH greater than 6.0 may reduce the tendency for uric acid stone formation. Source: [facility] [employer]. Last Revised Date: 08-06-2017 Protein, ur, POC Negative Negative [facility] Urobilinogen, ur, POC 0.2 mg/dL mg/dL [facility] Nitrites, ur, POC Negative Negative [facility] Leukocyte esterase, ur, POC Negative Negative [facility] Urine 01/24/2025 8:56 AM CDT 01/24/2025 8:56 AM CDT us Jorge L Black MD LAB POCT ORDERABLES - DEV ICE Final Result [facility] [place] [address] * US Ob Limited (01/24/2025 8:45 AM [...] This demonstrates fetus in vertex presentation with RENETTA 12.35 cm. Narrative 01/24/2025 8:46 AM CDT [facility] BSUS Vertex DVP: 4.2cm RENETTA: 12.35cm us Camila Sutton NP IMG OB US PROCEDURES Edited R esult - Final * (ABNORMAL) POCT urinalysis (Clinitek) (01/24/2025 6:51 AM CDT) Color, ur, POC Yellow Yellow Clarity, UA, POC Clear Clear [facility] Glucose, ur, POC Negative Negative [facility] Bilirubin, ur, POC Negative Negative [facility] Ketones, ur, POC Negative Negative [facility] Specific gravity, ur, POC 1.010 1.010 - 1.025 [facility] Blood, ur, POC Trace(A) Negative [facility] pH, ur, POC 7.0 [facility] Comment: Interpretive Data Urine pH is affected by diet, medications, systemic acid-base disturbances, and renal tubular function. pH may affect urinary stone formation. For example, urine pH below 6.0 may help reduce the tendency for calcium phosphate stones and pH greater than 6.0 may reduce the tendency for uric acid stone formation. Source: [place] [employer]. Last Revised Date: 08-06-2017 Protein, ur, POC Negative Negative [facility] Urobilinogen, ur, POC 0.2 mg/dL mg/dL [facility] Nitrites, ur, POC Negative Negative [facility] Leukocyte esterase, ur, POC Negative Negative [facility] Urine 01/24/2025 6:51 AM CDT 01/24/2025 6:51 AM CDT us Tiny Quezada MD LAB POCT ORDERABLES - DEVICE Final Result [facility] [place] [address] * US Ob Follow Up (01/19/2025 10:50 AM CDT) [...] The amniotic fluid volume measured 16 cm. Jorge L Black MD IM OB US PROCEDURES Yari l Result * [...] kidneys are normal appearing for gestational age. Jorge L Black MD [facility] OB US PROCEDURES Edit ed * (ABNORMAL) POCT urinalysis (Clinitek) (12/08/2024 9:48 AM CDT) Color, ur, POC Yellow Yellow Clarity, UA, POC Clear Clear [facility] Glucose, ur, POC Negative Negative [facility] Bilirubin, ur, POC Negative Negative [facility] Ketones, ur, POC Negative Negative [facility] Specific gravity, ur, POC 1.015 1.010 - 1.025 [facility] Blood, ur, POC Trace(A) Negative [facility] pH, ur, POC 7.0 [facility] Comment: Interpretive Data Urine pH is affected by diet, medications, systemic acid-base disturbances, and renal tubular function. pH may affect urinary stone formation. For example, urine pH below 6.0 may help reduce the tendency for calcium phosphate stones and pH greater than 6.0 may reduce the tendency for uric acid stone formation. Source: [facility] [employer]. Last Revised Date: 08-06-2017 Protein, ur, POC Negative Negative [facility] Urobilinogen, ur, POC 0.2 mg/dL mg/dL [facility] Nitrites, ur, POC Negative Negative [facility] Leukocyte esterase, ur, POC 1+(A) Negative [facility] Urine 12/08/2024 9:48 AM CDT 12/08/2024 9:48 AM CDT Tiny Quezada MD LAB POCT ORDERABLES - DEVICE Final Result Performing Organization Address [facility] Co de Phone Number [facility] [place] [address] * Hepatitis C antibody Blood (08/16/2024 10:43 AM INTERNATIONAL LOGISTICS MANAGER) Hep C Ab NON-REACTI VE NON-REACT IMAN [facility] Comment: HCV antibody was non-reactive. There is no laboratory evidence of HCV infection. In most cases, no further action is required. However, if recent HCV exposure is suspected, a test for HCV RNA (test code 52028) is suggested. For additional information please refer to http://education.[employer]faq/ZEW92t0 (This link is being provided for informational/ educational purposes only.) Blood 08/16/2024 10:4 3 AM INTERNATIONAL LOGISTICS MANAGER 08/16/2024 10:44 AM INTERNATIONAL LOGISTICS MANAGER us Tiny Quezada MD LAB MICROBIOLOGY - GE NERAL ORDERABLES Final Result Performing Organization Address City/[facility] Co de Phone Number [facility] [address] [place] [address] * Pap with reflex to High Risk HPV and Genotyping (Cytology Component) (12/22/2023 3:03 PM CDT) Thin prep (Pap test) 12/22/2023 3:03 PM CDT 12/23/2023 3:38 AM CDT Narrative [facility]Y [facility] - 12/29/2023 11:05 AM CDT EPIC results best viewed via link to PDF [facility] [place] [address] Note to Patients: This report may contain [...] the details. CYTOPATHOLOGY REPORT FINAL Patient Name: HERIBERTO ANGEL Gender: Ashok : 2000 (Age: 23) Address: [address] [place] [address] Hospital #: [id number] Service: DEFAULT Location: Patient Type: [facility] SPECIMEN Taken: 12/22/2023 Received: 12/23/2023 Accessioned: 12/23/2023 Reported: 12/29/2023 Physician(s): Brea Winter M.D. FINAL INTERPRETATION SOURCE OF SPECIMEN Liquid based Thin Prep pap with Reflex HPV: STATEMENT OF ADEQUACY - Satisfactory for evaluation - Endocervical cells/transformation zone sample absent GENERAL CATEGORIZATION: - Negative for squamous intraepithelial lesion or malignancy lw/12/29/2023 11:05 SID López MS(ASCP)ARELIS Report Electronically Reviewed and Signed Out By SID López MS(ASCP)ARELIS 12/29/2023 11:05:47 Cervicovaginal Cytology (Pap Test) Disclaimer: The Pap test is a screening test used to detect cervical cancer and its precursors; it is not a diagnostic procedure. False negative and false positive results do occur. Pap test results should be interpreted in the context of pertinent clinical information and biopsy results as indicated. [facility] Clinical Laboratory Improvement Amendments (CLIA) mandate that cytologic and histologic results be correlated for laboratory research quality assurance analyst & improvement standards. FOR ALL HIGH-GRADE CASES [...] determined by the Surgical Pathology Department at [facility] as part of an ongoing research quality assurance analyst program and in compliance with federally mandated [...] determined by the Surgical Pathology Department of [facility]. It has not been cleared or approved by the U. S. Food and Drug Administration. Brunilda Winter MD LAB CYTOLOGY ORDERABLES [facility] Result PATHOLOGY [facility] from Last 3 Months or Most Recently Relevant to Health Maintenance Insurance [facility] [place] [employer] [place] Advance Directives For more information, please contact: [phone] * Full Code (Latest Code Status on [...] 4:00 AM 05/22/2022 7:06 PM Care Teams County Adviser Relationship Specialty Start Date End Date Mehreen Saleem NP [address] [facility] [address] [place] [address] PCP - General Family Medicine 12/22/23
--- NOTE | 2025-02-28 12:49 | ECG_ITS ---
Test Date: 2025-02-28 12:53:52 Measurements Intervals [place] Rate: 107 P: 65 IN: 128 QRS: 79 QRSD: 76 T: 47 QT: 319 QTc: 427 Interpretive Statements SINUS TACHYCARDIA POSSIBLE LEFT ATRIAL ENLARGEMENT BORDERLINE ST ABNORMALITY- ANTEROLAT/INF LEADS BASELINE ARTIFACT- I, II, III, AVR, AVL, V1-V2, V4 BORDERLINE ECG No previous ECG available for comparison Electronically Signed On 02-28-2025 13:07:33 CDT by Jovani Perez D.O.
[2025-02-28] MEDS: SODIUM CHLORIDE 0.9% IV 1,000 ML 999 ML IV CONT (13:08)
--- OUTSIDE RECORDS SUMMARY | 2025-02-28 13:15 | XMS_ITS | Clinical Summary ---
Author Organization [facility] Address [facility] [place] [address] Care Team Providers Care Welfare Supervisor Name Role Phone Mehreen Saleem NP Primary Care Provider [phone] Allergies Active Allergy Reactions Criticality Noted Date [...] today. Normal labor 02/11/2025 Overview (02/11/2025): Heriberto Angel is a 24 y.o. female [...] ABORH A Positive 05/19/2022 IDCOOMB Negative 05/19/2022 [id number] Nonreactive 04/29/2022 LABRPR NON-REACTIVE 08/16/2024 RUBELIGG 2.83 [...] [] MOC: [] Method of feeding: [] Machinist (specifically which provider): [] PP Depression Discussed: [...] counselors for global Referring Provider: Marisol Reyes [phone] [] [employer] or Medicare Insurance [x] Dating Criteria: LMP [...] PPV [x] Method of feeding: formula [] Machinist: [] PP Depression Discussed: Assessment & Plan (04/25/2022 12:45 PM CDT): RTC 2 wks Weekly BPPs/UA Dopplers, NSTs Delivery scheduled at 37 wks for now [x] Full MFM Care; [] Red Team [x] Blue Team GEENA as of 02/20- email sent to financial counselors for global Referring Provider: Marisol Reyes [phone] [] [employer] or Medicare Insurance [x] Dating Criteria: LMP [...] [] MOC: [] Method of feeding: [] Machinist: [] PP Depression Discussed: Encounters Date Type Department Care Team Description 02/12/2025 12:51 AM CDT Anesthesia Event [address] [address] Vielka Navarrete MD Lee, Marino Chen MD 02/11/2025 8:01 PM CDT - 02/14/2025 11:29 AM CDT Hospital Encounter [address] [phone] Jorge L Black MD Gray-Swain, Margaret Rosanna, MD Whelan, Victoria Conway, MD Discharge Disposition: Discharge to home or self care 02/09/2025 11:30 AM CDT Clinical Support [facility] Obstetrics and Gynecology [address] [place] [address] 02/09/2025 11:15 AM CDT Office Visit [facility] Obstetrics and Gynecology [address] [place] [address] Floor [address] [place] [phone] Supervision of other normal , antepartum (Primary Dx) 02/01/2025 9:00 AM CDT Office Visit [facility] Obstetrics and Gynecology [address] [place] [address] [address] [place] [phone] Supervision of other normal , antepartum (Primary Dx) 01/27/2025 5:11 PM CDT - 01/27/2025 8:03 PM CDT Hospital Encounter [address] [address] Jorge L Black MD Discharge Disposition: Discharge to home or self care 01/27/2025 Results Follow-Up [address] [place] [address] Jorge L Black MD Group B streptococcal culture Vaginal/Rectal Vaginal 01/26/2025 11:58 AM CDT - 01/26/2025 12:31 PM CDT Hospital Encounter [address] [phone] Jorge L Black MD Discharge Disposition: Discharge to home or self care 01/24/2025 8:50 AM CDT Ancillary Procedure [address] [address] 01/24/2025 6:40 AM CDT - 01/25/2025 11:49 AM CDT Hospital Encounter [address] [address] Tiny Quezada MD Chawla, Aneesh Surya, MD No leakage of amniotic fluid into vagina (Primary Dx) Discharge Disposition: Discharge to home or self care 01/19/2025 12:00 PM CDT Clinical Support [facility] Obstetrics and Gynecology [address] [place] [address] [place] [address] 01/19/2025 11:45 AM CDT Office Visit [facility] Obstetrics and Gynecology [address] [place] [address] 7th Floor [address] [place] [address] Supervision of other normal , antepartum (Primary Dx) 01/19/2025 10:45 AM CDT - 01/19/2025 11:59 PM CDT Hospital Encounter [facility] - Ultrasound [address] [place] [address], 7th Floor, [address] [place] [address] Previous baby with growth restriction Discharge Disposition: Discharge to home or self care 01/05/2025 10:00 AM CDT Office Visit [facility] Obstetrics and Gynecology [address] [place] [address] Floor [address] [place] [phone] Supervision of other normal , antepartum (Primary Dx); 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; 33 weeks gestation of 12/25/2024 Results Follow-Up [address] [phone] Jorge L Black MD US Ob Follow Up, US Ob Follow Up 12/22/2024 11:15 AM CDT Office Visit [facility] Obstetrics and Gynecology [address] [facility] 7th Floor [address] [place] [address] Supervision of other normal , antepartum (Primary Dx) 12/22/2024 9:58 AM CDT - 12/22/2024 11:59 PM CDT Hospital Encounter [facility] - Ultrasound [address] [facility] [place], 7th Floor, [address] [place] [address] Previous baby with growth restriction Discharge Disposition: Discharge to home or self care 12/08/2024 9:29 AM CDT - 12/08/2024 11:10 AM CDT Hospital Encounter [address] [phone] Tiny Quezada MD Discharge Disposition: Discharge to home or self care 12/08/2024 Telephone [facility] Obstetrics and Gynecology [address] [facility] 7th Floor [address] [place] [address] Piyush Herrera RN OB concern from Last [...] Tobacco: Never Tobacco Cessation:Counseling Given: Not Answered [facility] Utilities Answer Date Recorded In the past [...] often do you attend chur ch or methodist services? Never 02/13/2025 Do you belong to any clubs o r organizations such as restoration groups, unions, fraternal or athletic groups, or [...] staff should administer the PHQ-9) 0 01/24/2025 [facility] - Occupational [...] place to sleep or slept in a mcfp (including now)? No 05/21/2022 Montague Depression Scale Answer Date Recorded Montague Depression Scale Total 6 06/30/2022 The thought [...] were you homeless or living in a mcfp (including now)? No 02/13/2025 Personal Safety Answer [...] Albert MD Delivery Location:[facility] ([facility]LD) 2024 Term 38w 3d 0h 52m 0h 48m/0h 04m 3.27 kg (7 lb 3.3 oz) F Vagina l Epidur al Y Livin g 8 9 Bayli e Eitan s Thomas Lemus MD Complications:None Delivery Location:[facility] Main C ampus ([facility] 58LD) Comments [id number] @ 38.3 baby gir l Vanna midline [...] 10/31/2021 IDCOOMB Negative 02/11/2025 SCRINDANTIGL negative 10/31/2021 [id number] Nonreactive 01/24/2025 [id number] NON-REACTIVE 08/16/2024 [id number] Negative 10/31/2021 LABRPR Nonreactive 02/11/2025 SCRRPR Non-Reactive 10/31/2021 RUBELIGG 2.83 08/16/2024 SCRRUBELIGG Immune 10/31/2021 HEPBSAG NON-REACTIVE 08/16/2024 VZVIGG 9.16 08/16/2024 Current Meds: Scheduled Medications acetaminophen, 1,000 mg, oral, Q6H JOAN docusate sodium, 100 mg, oral, BID viatmin, 1 tablet, oral, Daily polyethylene glycol, 17 g, oral, Daily PRN Medications albuterol HFA benzocaine-menthoL calcium carbonate hydrocortisone ibuprofen kzwcdmi-irixk-zvfdree ondansetron ODT OR ondansetron varicella zoster ASSESSMENT/PLAN [...] task not sent. Desires discharge home today. MAHOGANY Flores 02/14/25 Cosigned by Nighat Syed MD [...] Date/Time: 02/12/2025t 11:06 AM Delivery method: Vaginal [[id number]] Subjective Flatus: No Pain: Well controlled Diet: [...] albuterol HFA benzocaine-menthoL calcium carbonate hydrocortisone ibuprofen nxreihs-kuhda-ulwryny ondansetron ODT OR ondansetron varicella zoster Vitals: [...] feed, use [employer] for a employment officer and is considering OCPs and partner vasectomy for pp bc. Also informed that social work will visit her in the hospital and baby will have a hearing and blood screening. Pt stated understanding. Having a girl! Going to [facility] in [place], [place] reviewed closest hospitals with OB care [...] pain Estimated Date of Delivery: 02/23/25 Provider: [facility] OBGYN HPI: Heriberto Angel is a 24 [...] Name: SHANTEL ANGEL Apgar1: 8 Apgar5: 7 CREW DIRECTOR History: Patient's last menstrual period was 05/19/2024. [...] 10/31/2021 IDCOOMB Negative 01/24/2025 SCRINDANTIGL negative 10/31/2021 [id number] Nonreactive 01/24/2025 [id number] NON-REACTIVE 08/16/2024 [id number] Negative 10/31/2021 LABRPR Nonreactive 01/24/2025 SCRRPR Non-Reactive [...] female at 36w0d gestation BMZ #2 in [facility] without incidence FWB- + FHT Disposition- Discharge [...] % Max: 100 % FHR: NST reactive [place]: no regular contractions Physical Exam General: No [...] threatened labor. #Threatened PTL - presented to [facility] w/ contractions q5 mins, now spaced - [...] Jones MD 01/25/25 Cosigned by Jorge L Blakc MD at 01/30/2025 11:30 AM CDT Associated [...] Contractions Estimated Date of Delivery: 02/23/25 Provider: [facility] O[facility] HPI: Heriberto Angel is a 24 [...] Name: SHANTEL ANGEL Apgar1: 8 Apgar5: 7 CREW DIRECTOR History: Patient's last menstrual period was 05/19/2024. [...] 10/31/2021 IDCOOMB Negative 10/16/2024 SCRINDANTIGL negative 10/31/2021 [id number] Nonreactive 04/29/2022 [id number] NON-REACTIVE 08/16/2024 [id number] Negative 10/31/2021 LABRPR Nonreactive 11/04/2024 SCRRPR Non-Reactive 10/31/2021 RUBELIGG 2.83 08/16/2024 SCRRUBELIGG Immune 10/31/2021 HEPBSAG NON-REACTIVE 08/16/2024 VZVIGG 9.16 08/16/2024 Assessment and Plan: Patient is a 24 year old @ 35w5d who is being admitted for tPTL #R/o PTL -VSS -[place]: irregular ctx -Urine dipstick: S.010, bld trace -Took Tylenol prior to coming to [facility] -SVE: FT/L/H to 3 -SSE: no pooling [...] a bride to vasectomy - Baby girl [facility] [place] - [facility] precautions reviewed Progress Notes - Office Visi [...] Patient plans to formula feed. Aware that diet consultant will meet with patient in the hospital. Discussed the baby friendly initiatives i.e. skin to skin, rooming in and delayed bath. Also discussed birthing classes and how to enroll, reviewed online resources and virtual tour currently being offered by [facility] Women and Infants. Having a girl! Plans [...] reactive Discussed anterior placenta. Feeling movement in [facility], hearing movement on monitor.Feels reassured. Plan of care and NST reviewed by hadley Brown for discharge. Prec given. Disposition- Discharge to home with follow up as scheduled Tiny Strange NP 11/18/2024 - - Tiny Chaudhry RN Pt is a 24yo presenting to the [facility] with c/o DFM. Pt reports began last [...] from the original note were not included. [facility] Update To bedside for repeat exam. SSE [...] fluid Estimated Date of Delivery: 02/23/25 Provider: [facility] O[facility] HPI: Heriberto Angel is a 24 [...] Name: SHANTEL ANGEL Apgar1: 8 Apgar5: 7 CREW DIRECTOR History: Patient's last menstrual period was 05/19/2024. [...] tablet PNV no.95/ferrous fum/folic ac ( ORAL) [id number]-[id number]-ijcpi acid 29 mg iron- 1 mg tablet,chewable [...] 10/31/2021 IDCOOMB Negative 05/19/2022 SCRINDANTIGL negative 10/31/2021 [id number] Nonreactive 04/29/2022 [id number] NON-REACTIVE 08/16/2024 [id number] Negative 10/31/2021 LABRPR NON-REACTIVE 08/16/2024 SCRRPR Non-Reactive [...] WAC precautions reviewed. RTC in 4 weeks. [facility] Progress Notes - Office Visi t - [...] anatomy scan and EOB. Beatriz Hebert MD CR[facility] Progress Notes - Procedure v isit - 08/08/2024 - GA:11w4d 08/08/2024 - 11w4d - Nigel Gardiner RN Cell free DNA obtained x1 stick with no complications. Pt DOES desire to know sex, informed pt it would be on [employer] results when released, pt verbalized understanding. Kit# [id number] [facility] Progress Notes - Office Visi t - 08/08/2024 - GA:11w4d 08/08/2024 - - Hiwot Denney NP YOU - Denies lof,bleeding and or cramping - reminded to complete 1t labs - CFDNA today RTC in 4 weeks Carisa Denney APRN, TARUN-BC CR[facility]HER Progress Notes - Office Visi t - [...] No Intellectual disability or Fragile X: No Lipscomb disease: No Other defects or genetic disorders: [...] hesitate to call us. Sarah Calhoun MD CRUSHER CRUSHER Progress Notes - Office Visi t - 07/07/2024 - GA:7w0d 07/07/2024 - 7w0d - Nigel Snyder RN Met with Heriberto Angel today for initial/first trimester visit teaching. Discussed the practice reviewed that group is comprised of 1 male physician, 6 female physicians, and 2 female nurse practitioners. Reviewed safe medications, appropriate diet, exercise/activity, travel, animals and vaccinations. Pt had specific questions that were answered appropriately. Desires cfDNA. CRUSHER 07/07/2024 - 7w0d - Tiny Quezada MD [...] MD 2 Current Past medical, surgical, and CREW DIRECTOR history fully reviewed. ROS as per HPI. [...] [] MOC: [] Method of feeding: [] Machinist (specifically which provider): [] PP Depression Discussed: [...] in 4 weeks. Tiny Quezada MD 07/07/2024 CR[facility] Progress Notes - Hospital En counter - [...] Name: SHANTEL ANGEL Apgar1: 8 Apgar5: 7 CREW DIRECTOR History: Patient's last menstrual period was 05/19/2024. [...] 10/31/2021 IDCOOMB Negative 05/19/2022 SCRINDANTIGL negative 10/31/2021 [id number] Nonreactive 04/29/2022 [id number] Negative 10/31/2021 LABRPR Nonreactive 05/19/2022 SCRRPR Non-Reactive [...] Ok for discharge. Tiny Strange NP 07/04/24 CR[facility] Progress Notes - Abstract - 06/27/2024 - GA:5w4d 06/27/2024 - 5w4d - Daphne Topete RMA Pt has not been seen yet for this . 2021 MFM and delivery records are in [facility]. PCP records are also in [facility]. Most recent visit was 03/04/24. CR[facility]HER Last Filed Vital Signs Vital Sign Reading [...] Procedure Name Priority Date/Time Associated Diagnosis Comments [place] AN PROCEDURE PLACEHOLDER Routine 02/12/2025 1:27 AM [...] HEPATITIS C ANTIBODY Routine 08/16/2024 10:43 AM BONE CR[facility] Supervision of other normal , antepartum PAP WITH REFLEX TO HIGH RISK HPV Routine 12/22/2023 3:03 PM CDT Well woman exam from Last 3 Months or Most Recently Relevant to Health Maintenance Results * MN AN PROCEDURE PLACEHOLDER (02/12/2025 1:27 AM CDT) Narrative Timi Dumont CRNA - 02/12/2025 1:27 AM CDT Timi Dumont CRNA 02/12/2025 1:28 AM Epidural Block Patient location: L&D Reason for block: primary anesthetic Staff: Supervising provider: Vielka Navarrete MD Placed by: BRASS BURNISHER: Timi Dumont CRNA Procedure prep: Preprocedure checklist: [...] MD LAB BLOOD ORDERABLES Yari l Result [facility] [place] [address] * RPR Blood (02/11/2025 10:06 PM CDT) RPR Nonreactive Nonreactive Blood 02/11/2025 10:0 6 PM CDT 02/11/2025 10:17 PM CDT us Jorge L Black MD LAB MICROBIOLOGY - GENERA L ORDERABLES Final Result Performing Organization Address [facility] de Phone Number [facility] [place] [address] * (ABNORMAL) CBC without differential (02/11/2025 10:06 PM CDT) WBC 11.84(H) 3.80 - 9.90 K/cumm Hgb 11.7(L) 11.9 - 15.5 g/dL [facility] Hct 33.3(L) 35.6 - 45.5 % [facility] Plt 214 150 - 400 K/cumm [facility] MPV 9.8 9.1 - 12.3 fL [facility] RBC 3.77(L) 3.90 - 5.20 M/cumm [facility] MCV 88.3 81.3 - 96.4 fL [facility] MCH 31.0 27.1 - 33.3 pg [facility] MCHC 35.1 32.3 - 35.7 g/dL [facility] RDW CV 13.7 11.1 - 14.9 % [facility] RDW SD 44.5 35.7 - 48.1 fL [facility] NRBC abs 0.00 0.00 - 0.01 K/cumm [facility] Blood 02/11/2025 10:0 6 PM CDT 02/11/2025 10:17 PM CDT Jorge L Black MD LAB BLOOD ORDERABLES Yari l Result Performing Organization Address [facility] Co de Phone Number [facility] [place] [address] * Type and screen (02/11/2025 10:06 PM CDT) Pathologist [facility] ABO Rh A Positive Danial, indirect Negative [facility] Blood 02/11/2025 10:0 6 PM CDT 02/11/2025 10:24 PM CDT Narrative [facility] - 02/11/2025 11:20 PM CDT Has the patient had Daratumumab or Isatuximab in the past 6 months?->Unknown Jorge L Black MD LAB BLOOD BANK TEST ORDER PRAFUL Final Result Performing Organization Address [facility]/ZIP Co de Phone Number [facility] [place] [address] * (ABNORMAL) Basic metabolic panel (02/11/2025 10:06 PM CDT) [facility] Sodium 138 135 - 145 mmol/L Potassium, pl 3.9 3.3 - 4.9 mmol/L [facility] Chloride 104 97 - 110 mmol/L [facility] CO2 21(L) 22 - 32 mmol/L [facility] Anion gap 13 2 - 15 mmol/L [facility] BUN 8 6 - 25 mg/dL [facility] Creatinine 0.58(L) 0.60 - 1.10 mg/dL [facility] Glucose 76 70 - 199 mg/dL [facility] Comment: Interpretive Data Fasting glucose [...] 2022. Calcium 9.2 8.5 - 10.3 mg/dL [facility] Blood 02/11/2025 10:0 6 PM CDT 02/11/2025 10:17 PM CDT Jorge L Black MD LAB BLOOD ORDERABLES Yari l Result Performing Organization Address [facility]/ZIP Co de Phone Number [facility] [place] [address] * (ABNORMAL) POCT urinalysis (Clinitek) (02/11/2025 8:36 [...] tendency for uric acid stone formation. Source: [employer] Last Revised Date: 08-06-2017 Protein, ur, POC Negative Negative [facility] Urobilinogen, ur, POC 0.2 mg/dL mg/dL [facility] Nitrites, ur, POC Negative Negative [facility] Leukocyte esterase, ur, POC Negative Negative [facility] Urine 02/11/2025 8:36 PM CDT 02/11/2025 8:36 PM CDT us Jorge L Black MD LAB POCT ORDERABLES - DEV ICE Final Result [facility] [place] [address] * (ABNORMAL) POCT urinalysis (Clinitek) (01/27/2025 5:35 PM CDT) Color, ur, POC Yellow Yellow Clarity, UA, POC Clear Clear [facility] Glucose, ur, POC Negative Negative [facility] Bilirubin, ur, POC Negative Negative [facility] Ketones, ur, POC Negative Negative [facility] Specific gravity, ur, POC 1.010 1.010 - 1.025 [facility] Blood, ur, POC Trace(A) Negative [facility] pH, ur, POC 6.0 [facility] Comment: Interpretive Data Urine pH is affected by diet, medications, systemic acid-base disturbances, and renal tubular function. pH may affect urinary stone formation. For example, urine pH below 6.0 may help reduce the tendency for calcium phosphate stones and pH greater than 6.0 may reduce the tendency for uric acid stone formation. Source: [facility]. Last Revised Date: 08-06-2017 Protein, ur, POC Negative Negative [facility] Urobilinogen, ur, POC 0.2 mg/dL mg/dL [facility] Nitrites, ur, POC Negative Negative [facility] Leukocyte esterase, ur, POC Negative Negative [facility] Urine 01/27/2025 5:35 PM CDT 01/27/2025 5:35 PM CDT Jorge L Black MD LAB POCT ORDERABLES - DEV ICE Final Result Performing Organization Address [facility] Co de Phone Number [facility] [place] [address] * N. gonorrhoeae/C. trachomatis Amplification Urine (01/25/2025 6:37 AM CDT) Pathologist [facility] C. trachomatis Not Detected Not Detected [facility] N. gonorrhoeae Not Detected Not Detected [facility] Comment: Interpretive Data This assay detects Chlamydia trachomatis and Neisseria gonorrhoeae by nucleic acid amplification testing (NAAT). This assay has been cleared by the [place] Food and Drug administration. The performance characteristics of this test have been verified by the [facility] Molecular Infectious Disease laboratory. The performance characteristics of this test have not been evaluated in individuals less than 14 years of age. Current Interpretive Data last revised 2023. Urine (None) 01/25/2025 6:37 AM CDT 01/25/2025 8:15 AM CDT Jorge L Black MD LAB MICROBIOLOGY - GENERA L ORDERABLES Final Result Performing Organization Address [facility]/[place] [address] [facility] * Trichomonas vaginalis PCR Urine (01/25/2025 6:37 AM CDT) Pathologist [facility] Trichomonas DNA Not Detected Not Detected [facility] Urine 01/25/2025 6:37 AM CDT 01/25/2025 8:15 AM CDT Narrative [facility] - 01/25/2025 9:26 AM CDT Interpretive Data: This assay detects Trichomonas vaginalis by nucleic acid amplification testing (NAAT). This assay has been cleared by the [place] Food and Drug administration. The performance characteristics of this test have been verified by the [facility] Molecular Infectious Disease laboratory. Excess blood in specimens may be inhibitory and result in false negative results. The performance of this test has not been evaluated in women or individuals less than 18 years of age. Jorge L Black MD LAB MICROBIOLOGY - [employer] L ORDERABLES Final Result Performing Organization Address [facility] [place] [address] [facility] * HIV 1/2 Antibody plus p24 Antigen Blood (01/24/2025 1:04 PM CDT) [facility] HIV 1/2 ab + p24 ag Nonreactive [...] L ORDERABLES Final Result Performing Organization Address [facility] [place] [address] * eGFR (01/24/2025 10:46 AM CDT) eGFR [...] NP LAB BLOOD ORDERABL ES Final Result [facility] [place] [address] * (ABNORMAL) Differential, auto (01/24/2025 10:46 AM CDT) Neutrophil abs 9.95(H) 1.50 - 6.50 K/cumm Imm gran abs 0.12(H) 0.00 - 0.10 K/cumm [facility] Lymphocyte abs 1.44 0.80 - 3.30 K/cumm [facility] Monocyte abs 0.73 0.20 - 0.80 K/cumm [facility] Eosinophil abs 0.02 0.00 - 0.50 K/cumm [facility] Basophil abs 0.03 0.00 - 0.10 K/cumm [facility] Neutrophil pct 81.0 % [facility] Comment: Interpretive Data Percent cell count reference ranges are not reported, since discordance with absolute values may lead to misinterpretation of CBC data. Current Interpretive Data was last revised on 2017. Imm gran pct 1.0 % [facility] Comment: Interpretive Data Percent cell count reference ranges are not reported, since discordance with absolute values may lead to misinterpretation of CBC data. Current Interpretive Data was last revised on 2017. Lymphocyte pct 11.7 % [facility] Comment: Interpretive Data Percent cell count reference ranges are not reported, since discordance with absolute values may lead to misinterpretation of CBC data. Current Interpretive Data was last revised on 2017. Monocyte pct 5.9 % [facility] Comment: Interpretive Data Percent cell count reference ranges are not reported, since discordance with absolute values may lead to misinterpretation of CBC data. Current Interpretive Data was last revised on 2017. Eosinophil pct 0.2 % [facility] Comment: Interpretive Data Percent cell count reference ranges are not reported, since discordance with absolute values may lead to misinterpretation of CBC data. Current Interpretive Data was last revised on 2017. Basophil pct 0.2 % [facility] Comment: Interpretive Data Percent cell count reference ranges are not reported, since discordance with absolute values may lead to misinterpretation of CBC data. Current Interpretive Data was last revised on 2017. Blood 01/24/2025 10:4 6 AM CDT 01/24/2025 11:00 AM CDT us Tiny Strange [employer] LAB BLOOD ORDERABL ES Final Result [facility] H[facility] Department [place] [address] * (ABNORMAL) CBC with auto differential (01/24/2025 10:46 AM CDT) WBC 12.29(H) 3.80 - 9.90 K/cumm Hgb 11.2(L) 11.9 - 15.5 g/dL [facility] Hct 32.5(L) 35.6 - 45.5 % [facility] Plt 199 150 - 400 K/cumm [facility] MPV 9.8 9.1 - 12.3 fL [facility] RBC 3.53(L) 3.90 - 5.20 M/cumm [facility] MCV 92.1 81.3 - 96.4 fL [facility] MCH 31.7 27.1 - 33.3 pg [facility] MCHC 34.5 32.3 - 35.7 g/dL [facility] RDW CV 13.7 11.1 - 14.9 % [facility] RDW SD 45.3 35.7 - 48.1 fL [facility] NRBC abs 0.00 0.00 - 0.01 K/cumm [facility] Blood 01/24/2025 10:4 6 AM CDT 01/24/2025 11:00 AM CDT Tiny Strange NP LAB BLOOD ORDERABL ES Final Result [facility] [place] [address] * Group B streptococcal culture Vaginal/Rectal Vaginal (01/24/2025 10:46 AM CDT) Report Final Report: Negative Vaginal/Rectal (Vaginal) 01/24/2025 10:46 AM CDT 01/24/2025 11:50 AM CDT Narrative [facility] - 01/26/2025 9:04 PM CDT Testing performed by [facility] Laboratory ([phone]). Tiny Strange NP LAB MICROBIOLOGY - GENERAL ORDERABLES Final Result [facility] [place] [address] * RPR Blood (01/24/2025 10:46 AM CDT) [facility] RPR Nonreactive Nonreactive Blood 01/24/2025 10:4 6 AM CDT 01/24/2025 11:00 AM CDT Tiny Strange NP LAB MICROBIOLOGY - GENERAL ORDERABLES Final Result Performing Organization Address City/[facility] Co de Phone Number [facility] Department [place] [address] * Type and screen (01/24/2025 10:46 AM CDT) [facility] Danial, indirect Negative ABO Rh A Positive [facility] Blood 01/24/2025 10:4 6 AM CDT 01/24/2025 11:19 AM CDT Narrative [facility] - 01/24/2025 12:18 PM CDT Has the patient had Daratumumab or Isatuximab in the past 6 months?->Unknown Tiny Strange NP LAB BLOOD BANK CURLY T ORDERABLES Final Result Performing Organization Address [facility] de Phone Number [facility] [place] [address] * (ABNORMAL) Comprehensive metabolic panel (01/24/2025 10:46 AM CDT) [facility] Sodium 139 135 - 145 mmol/L Potassium, pl 4.0 3.3 - 4.9 mmol/L [facility] Chloride 108 97 - 110 mmol/L [facility] CO2 21(L) 22 - 32 mmol/L [facility] Anion gap 10 2 - 15 mmol/L [facility] BUN 7 6 - 25 mg/dL [facility] Creatinine 0.55(L) 0.60 - 1.10 mg/dL [facility] Glucose 82 70 - 199 mg/dL [facility] Comment: Interpretive Data Fasting glucose [...] Calcium 8.7 8.5 - 10.3 mg/dL [facility] Bilirubin, total 0.3 0.1 - 1.2 mg/dL [facility] Protein, pl 6.4(L) 6.5 - 8.5 g/dL [facility] Albumin 3.4(L) 3.5 - 5.0 g/dL [facility] Alk phos 118 40 - 130 Units/L [facility] ALT 15 7 - 45 Units/L [facility] AST 24 10 - 45 Units/L [facility] Blood 01/24/2025 10:4 6 AM CDT 01/24/2025 11:00 AM CDT Tiny Strange NP LAB BLOOD ORDERABL ES Final Result [facility] [place] [address] * (ABNORMAL) POCT urinalysis (Clinitek) (01/24/2025 8:56 [...] [facility] pH, ur, POC 7.0 [facility] Comment: Interpretive Data Urine pH is affected by diet, medications, systemic acid-base disturbances, and renal tubular function. pH may affect urinary stone formation. For example, urine pH below 6.0 may help reduce the tendency for calcium phosphate stones and pH greater than 6.0 may reduce the tendency for uric acid stone formation. Source: [facility] [place]. Last Revised Date: 08-06-2017 Protein, ur, POC Negative Negative [facility] Urobilinogen, ur, POC 0.2 mg/dL mg/dL [facility] Nitrites, ur, POC Negative Negative [facility] Leukocyte esterase, ur, POC Negative Negative [facility] Urine 01/24/2025 8:56 AM CDT 01/24/2025 8:56 AM CDT us Jorge L Black MD LAB POCT ORDERABLES - DEV ICE Final Result [facility] [place] [address] * US Ob Limited (01/24/2025 8:45 AM [...] 12.35 cm. Narrative 01/24/2025 8:46 AM CDT [facility] BSUS Vertex DVP: 4.2cm RENETTA: 12.35cm us [...] ur, POC 1.010 1.010 - 1.025 [facility] Blood, ur, POC Trace(A) Negative [facility] pH, ur, POC 7.0 [facility] Comment: Interpretive Data Urine pH is affected by diet, medications, systemic acid-base disturbances, and renal tubular function. pH may affect urinary stone formation. For example, urine pH below 6.0 may help reduce the tendency for calcium phosphate stones and pH greater than 6.0 may reduce the tendency for uric acid stone formation. Source: [employer] Last Revised Date: 08-06-2017 Protein, ur, POC Negative Negative [facility] Urobilinogen, ur, POC 0.2 mg/dL mg/dL [facility] Nitrites, ur, POC Negative Negative [facility] Leukocyte esterase, ur, POC Negative Negative [facility] Urine 01/24/2025 6:51 AM CDT 01/24/2025 6:51 AM CDT us Tiny Quezada MD LAB POCT ORDERABLES - DEVICE Final Result [facility] [place] [address] * US Ob Follow Up (01/19/2025 10:50 [...] for gestational age. Jorge L Black MD [facility] OB US PROCEDURES Edit ed * (ABNORMAL) [...] tendency for uric acid stone formation. Source: [facility] [place]. Last Revised Date: 08-06-2017 Protein, ur, POC Negative Negative [facility] Urobilinogen, ur, POC 0.2 mg/dL mg/dL [facility] Nitrites, ur, POC Negative Negative [facility] Leukocyte esterase, ur, POC 1+(A) Negative [facility] Urine 12/08/2024 9:48 AM CDT 12/08/2024 9:48 AM CDT Tiny Quezada MD LAB POCT ORDERABLES - DEVICE Final Result Performing Organization Address [facility] Co de Phone Number [facility] [place] [address] * Hepatitis C antibody Blood (08/16/2024 10:43 AM BONE CRUSHER) Hep C Ab NON-REACTI VE NON-REACT IMAN [facility] Comment: HCV antibody was non-reactive. There is no laboratory evidence of HCV infection. In most cases, no further action is required. However, if recent HCV exposure is suspected, a test for HCV RNA (test code 52531) is suggested. For additional information please refer to http://education.Instapio/faq/PDU65j7 (This link is being provided for informational/ educational purposes only.) Blood 08/16/2024 10:4 3 AM BONE CRUSHER 08/16/2024 10:44 AM BONE CRUSHER us Tiny Quezada MD LAB MICROBIOLOGY - GE NERAL ORDERABLES Final Result Performing Organization Address City/[facility] Co de Phone Number [facility] [address] [place] [address] * Pap with reflex to High Risk HPV and Genotyping (Cytology Component) (12/22/2023 3:03 PM CDT) Thin prep (Pap test) 12/22/2023 3:03 PM CDT 12/23/2023 3:38 AM CDT Narrative PATHOLOGY [facility] - 12/29/2023 11:05 AM CDT EPIC results best viewed via link to PDF [facility] [place] [address] Note to Patients: This report may contain [...] Gender: Ashok : 2000 (Age: 23) Address: [address] [place] [address] Hospital #: [id number] Service: DEFAULT Location: Patient Type: [facility] SPECIMEN Taken: 12/22/2023 Received: 12/23/2023 [...] clinical information and biopsy results as indicated. [facility] Clinical Laboratory Improvement Amendments (CLIA) mandate that cytologic and histologic results be correlated for laboratory corporate quality manager & improvement standards. FOR ALL HIGH-GRADE CASES [...] determined by the Surgical Pathology Department at [facility] as part of an ongoing quality head program and in compliance with federally mandated [...] determined by the Surgical Pathology Department of [facility]. It has not been cleared or approved by the U. S. Food and Drug Administration. Brunilda Winter MD LAB CYTOLOGY ORDERABLES Critical access hospital Result PATHOLOGY [facility] from Last 3 Months or Most Recently Relevant to Health Maintenance Insurance [facility] [place] Advance Directives For more information, please contact: [phone] * Full Code (Latest Code Status on [...] 4:00 AM 05/22/2022 7:06 PM Care Teams Welfare Supervisor Relationship Specialty Start Date End Date Mehreen Saleem NP [address] [facility] [address] [place] [address] PCP - General Family Medicine 12/22/23
--- OUTSIDE RECORDS SUMMARY | 2025-02-28 13:15 | XMS_ITS | Encounter Summary ---
Author Organization [facility] Healthcare Address [address] [place] [address] Care Team Providers Care Automatic Cigar Wrapper Tender Name Role Phone Mehreen Saleem NP Primary Care Provider [phone] Encounter Details Date Type Department Care Team (Latest Contact Info) Description 01/27/2025 Results Follow-Up [facility] [address] [place] [id number] Jorge L Black MD [address] [address] Group B streptococcal culture Vaginal/Rectal Vaginal Social History Tobacco Use Types Packs/Day Years Used Date Smoking Tobacco: Never Smokeless Tobacco: Never [facility] Utilities Answer Date Recorded In the past 12 months has [employer] electric, gas, oil, or water company threatened [...] often do you attend chur ch or voodoo services? Never 01/25/2025 Do you belong to any clubs o r organizations such as zoroastrian groups, unions, fraternal or athletic groups, or [...] staff should administer the PHQ-9) 0 01/24/2025 [facility] - Occupational [...] place to sleep or slept in a fdc (including now)? No 05/21/2022 Hurley Depression Scale Answer Date Recorded Hurley Depression Scale Total 6 06/30/2022 The thought [...] time in the past 12 m [facility], were you homeless or living in a fdc (including now)? No 01/25/2025 Personal Safety Answer [...] on filedocumented in this encounter Care Teams Automatic Cigar Wrapper Tender Relationship Specialty Start Date End Date Mehreen Saleem NP [address] [address] PCP - General Family Medicine 12/22/23 documented as of this encounter
--- OUTSIDE RECORDS SUMMARY | 2025-02-28 13:15 | XMS_ITS | Referral Summary ---
Author Organization [facility] Address [address] [place] [address] Care Team Providers Care Deck Steward Name Role Phone Mehreen Saleem NP Primary Care Provider [phone] Encounters Date Type Department Care Team Description 02/11/2025 8:01 PM CDT - 02/14/2025 11:29 AM CDT Hospital Encounter [address] [phone] Jorge L Black MD Gray-Swain, Margaret Rosanna, MD Whelan, Victoria Conway, MD Discharge Disposition: Discharge to home or self care 02/12/2025 12:51 AM CDT Anesthesia Event [address] [phone] Vielka Navarrete MD Lee, Christopher Allen, MD 02/09/2025 11:30 AM CDT Clinical Support [facility] Obstetrics and Gynecology [address] [place] [phone] 02/09/2025 11:15 AM CDT Office Visit [facility] Obstetrics and Gynecology [address] [place] [address] Floor [address] [place] [phone] Supervision of other normal , antepartum (Primary Dx) 02/01/2025 9:00 AM CDT Office Visit [facility] Obstetrics and Gynecology [address] [place] [address] Floor [address] [place] [phone] Supervision of other normal , antepartum (Primary Dx) 01/27/2025 Results Follow-Up [address] [phone] Jorge L Black MD Group B streptococcal culture Vaginal/Rectal Vaginal 01/27/2025 5:11 PM CDT - 01/27/2025 8:03 PM CDT Hospital Encounter [address] [phone] Jorge L Black MD Discharge Disposition: Discharge to home or self care 01/26/2025 11:58 AM CDT - 01/26/2025 12:31 PM CDT Hospital Encounter [address] [phone] Jorge L Black MD Discharge Disposition: Discharge to home or self care 01/24/2025 6:40 AM CDT - 01/25/2025 11:49 AM CDT Hospital Encounter [address] [phone] Tiny Quezada MD Chawla, Aneesh Surya, MD No leakage of amniotic fluid into vagina (Primary Dx) Discharge Disposition: Discharge to home or self care 01/24/2025 8:50 AM CDT Ancillary Procedure [address] [phone] 01/19/2025 12:00 PM CDT Clinical Support [facility] Obstetrics and Gynecology [address] [place] [address] Outpatient Health [address] [place] [address] 01/19/2025 11:45 AM CDT Office Visit [facility] Obstetrics and Gynecology [address] [place] [address] 7th Floor [address] [place] [address] Supervision of other normal , antepartum (Primary Dx) 01/19/2025 10:45 AM CDT - 01/19/2025 11:59 PM CDT [facility] - Ultrasound [address] [facility], 7th Floor, [address] [facility] [place] [address] Previous baby with growth restriction Discharge Disposition: Discharge to home or self care 01/05/2025 10:00 AM CDT Office Visit [facility] Obstetrics and Gynecology [address] [place] [address] 7th Floor [address] [place] [address] Supervision of other normal , antepartum (Primary Dx); 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; 33 weeks gestation of 12/25/2024 Results Follow-Up [address] [phone] Jorge L Black MD US Ob Follow Up, US Ob Follow Up 12/22/2024 11:15 AM CDT Office Visit [facility] Obstetrics and Gynecology [address] [place] [address] 7th Floor [address] [place] [phone] Supervision of other normal , antepartum (Primary Dx) 12/22/2024 9:58 AM CDT - 12/22/2024 11:59 PM CDT Hospital Encounter [facility] - Ultrasound [address] [place] [address], 7th [facility], [address] [place] [address] Previous baby with growth restriction Discharge Disposition: Discharge to home or self care 12/08/2024 9:29 AM CDT - 12/08/2024 11:10 AM CDT Hospital Encounter [address] [phone] Tiny Quezada MD Discharge Disposition: Discharge to home or self care 12/08/2024 Telephone [facility] Obstetrics and Gynecology [address] [place] [address] 7th Floor [address] [place] [phone] Piyush Herrera RN OB concern from Last [...] ABORH A Positive 05/19/2022 IDCOOMB Negative 05/19/2022 [id number] Nonreactive 04/29/2022 LABRPR NON-REACTIVE 08/16/2024 RUBELIGG 2.83 [...] [] MOC: [] Method of feeding: [] Web Art Director (specifically which provider): [] PP Depression Discussed: [...] declines booster # Disposition: Follow up with [facility]- visits scheduled. Desires discharge home today. [...] counselors for global Referring Provider: Marisol Reyes [phone] [] or Medicare Insurance [x] Dating Criteria: [...] PPV [x] Method of feeding: formula [] Web Art Director: [] PP Depression Discussed: Assessment & Plan (04/25/2022 12:45 PM CDT): RTC 2 wks Weekly BPPs/UA Dopplers, NSTs Delivery scheduled at 37 wks for now [x] Full MFM Care; [] Red Team [x] Blue Team GEENA as of 02/20- email sent to financial counselors for global Referring Provider: Marisol Reyes [phone] [] or Medicare Insurance [x] Dating Criteria: [...] [] MOC: [] Method of feeding: [] Web Art Director: [] PP Depression Discussed: Immunizations Immunization Administration Dates Next Due Influenza, Quadrivalent, Catalina l Culture-based MDCK, Preservative Free, Antibiotic Free, Intramuscular 05/09/2022 Influenza, Unspecified 03/04/2024(Deferr ed: Patient Refused),07/27/2023(Deferred: Patient Refused),07/27/2022(Deferred: Patient Refused) Tdap 11/24/2024,04/03/2022 Varicella 01/05/2023 Social History Tobacco Use Types Packs/Day Years Used Date Smoking Tobacco: Never Smokeless Tobacco: Never Tobacco Cessation:Counseling Given: Not Answered [facility] Utilities Answer Date Recorded In the past 12 months has th e [employer], gas, oil, or water company threatened to [...] often do you attend chur ch or advent services? Never 02/13/2025 Do you belong to any clubs o r organizations such as quaker groups, unions, fraternal or athletic groups, or [...] staff should administer the PHQ-9) 0 01/24/2025 [facility] - Occupational [...] place to sleep or slept in a chcf (including now)? No 05/21/2022 [place] Depression Scale Answer Date Recorded [place] Depression Scale Total 6 06/30/2022 The thought [...] any time in the past 12 m [facility], were you homeless or living in a chcf (including now)? No 02/13/2025 Personal Safety Answer [...] Procedure Name Priority Date/Time Associated Diagnosis Comments [place] AN PROCEDURE PLACEHOLDER Routine 02/12/2025 1:27 AM [...] HEPATITIS C ANTIBODY Routine 08/16/2024 10:43 AM ABRAS[employer]ES SALES REPRESENTATIVE Supervision of other normal , antepartum PAP WITH REFLEX TO HIGH RISK HPV Routine 12/22/2023 3:03 PM CDT Well woman exam from Last 3 Months or Most Recently Relevant to Health Maintenance Results * AZ AN PROCEDURE PLACEHOLDER (02/12/2025 1:27 AM CDT) Narrative Timi Dumont CRNA - 02/12/2025 1:27 AM CDT Timi Dumont CRNA 02/12/2025 1:28 AM Epidural Block Patient location: L&D Reason for block: primary anesthetic Staff: Supervising provider: Vielka Navarrete MD Placed by: SATELLITE PROJECT SITE MONITOR: Timi Dumont CRNA Procedure prep: Preprocedure checklist: [...] MD LAB BLOOD ORDERABLES Yari cholo Result [facility] [place] [address] * RPR Blood (02/11/2025 10:06 PM CDT) Pathologist [facility] RPR Nonreactive Nonreactive Blood 02/11/2025 10:0 6 PM CDT 02/11/2025 10:17 PM CDT Jorge L Black MD LAB MICROBIOLOGY - GENERA L ORDERABLES Final Result Performing Organization Address [facility]/ZIP Co de Phone Number [facility] [place] [address] * (ABNORMAL) CBC without differential (02/11/2025 10:06 PM CDT) [facility] WBC 11.84(H) 3.80 - 9.90 K/cumm Hgb 11.7(L) 11.9 - 15.5 g/dL [facility] Hct 33.3(L) 35.6 - 45.5 % [facility] Plt 214 150 - 400 K/cumm [facility] MPV 9.8 9.1 - 12.3 fL [facility] RBC 3.77(L) 3.90 - 5.20 M/cumm [facility] MCV 88.3 81.3 - 96.4 fL [facility] MCH 31.0 27.1 - 33.3 pg [facility] MCHC 35.1 32.3 - 35.7 g/dL [facility] RDW CV 13.7 11.1 - 14.9 % [facility] RDW SD 44.5 35.7 - 48.1 fL [facility] NRBC abs 0.00 0.00 - 0.01 K/cumm [facility] Blood 02/11/2025 10:0 6 PM CDT 02/11/2025 10:17 PM CDT us Jorge L Black MD LAB BLOOD ORDERABLES Yari l Result [facility] [place] [address] * Type and screen (02/11/2025 10:06 PM CDT) Pathologist [facility] ABO Rh A Positive Danial, indirect Negative [facility] Blood 02/11/2025 10:0 6 PM CDT 02/11/2025 10:24 PM CDT Narrative [facility] - 02/11/2025 11:20 PM CDT Has the patient had Daratumumab or Isatuximab in the past 6 months?->Unknown us Jorge L Black MD LAB BLOOD BANK TEST ORDER PRAFUL Final Result [facility] [place] [address] * (ABNORMAL) Basic metabolic panel (02/11/2025 10:06 PM CDT) Pathologist [facility] Sodium 138 135 - 145 mmol/L Potassium, pl 3.9 3.3 - 4.9 mmol/L [facility] Chloride 104 97 - 110 mmol/L [facility] CO2 21(L) 22 - 32 mmol/L [facility] Anion gap 13 2 - 15 mmol/L [facility] BUN 8 6 - 25 mg/dL [facility] Creatinine 0.58(L) 0.60 - 1.10 mg/dL [facility] Glucose 76 70 - 199 mg/dL [facility] Comment: Interpretive Data Fasting glucose >/= 126 [...] 2022. Calcium 9.2 8.5 - 10.3 mg/dL [facility] Blood 02/11/2025 10:0 6 PM CDT 02/11/2025 10:17 PM CDT Jorge L Black MD LAB BLOOD ORDERABLES Yari l Result Performing Organization Address [facility]/ZIP Co de Phone Number [facility] [place] [address] * (ABNORMAL) POCT urinalysis (Clinitek) (02/11/2025 8:36 PM CDT) Color, ur, POC Yellow Yellow Clarity, UA, POC Clear Clear [facility] Glucose, ur, POC Negative Negative [facility] Bilirubin, ur, POC Negative Negative [facility] Ketones, ur, POC Negative Negative [facility] Specific gravity, ur, POC <=1.005(A) 1.010 - 1.025 [facility] Blood, ur, POC Trace(A) Negative [facility] pH, ur, POC 6.5 [facility] Comment: Interpretive Data Urine pH is affected by diet, medications, systemic acid-base disturbances, and renal tubular function. pH may affect urinary stone formation. For example, urine pH below 6.0 may help reduce the tendency for calcium phosphate stones and pH greater than 6.0 may reduce the tendency for uric acid stone formation. Source: [facility]. Last Revised Date: 08-06-2017 Protein, ur, POC Negative Negative [facility] Urobilinogen, ur, POC 0.2 mg/dL mg/dL [facility] Nitrites, ur, POC Negative Negative [facility] Leukocyte esterase, ur, POC Negative Negative [facility] Urine 02/11/2025 8:36 PM CDT 02/11/2025 8:36 PM CDT Jorge L Black MD LAB POCT ORDERABLES - DEV ICE Final Result Performing Organization Address [facility]/ZIP Co de Phone Number [facility] [place] [address] * (ABNORMAL) POCT urinalysis (Clinitek) (01/27/2025 5:35 PM CDT) Color, ur, POC Yellow Yellow Clarity, UA, POC Clear Clear [facility] Glucose, ur, POC Negative Negative [facility] Bilirubin, ur, POC Negative Negative [facility] Ketones, ur, POC Negative Negative [facility] Specific gravity, ur, POC 1.010 1.010 - 1.025 [facility] Blood, ur, POC Trace(A) Negative [facility] pH, ur, POC 6.0 [facility] Comment: Interpretive Data Urine pH is affected by diet, medications, systemic acid-base disturbances, and renal tubular function. pH may affect urinary stone formation. For example, urine pH below 6.0 may help reduce the tendency for calcium phosphate stones and pH greater than 6.0 may reduce the tendency for uric acid stone formation. Source: [facility] [employer]. Last Revised Date: 08-06-2017 Protein, ur, POC Negative Negative [facility] Urobilinogen, ur, POC 0.2 mg/dL mg/dL [facility] Nitrites, ur, POC Negative Negative [facility] Leukocyte esterase, ur, POC Negative Negative [facility] Urine 01/27/2025 5:35 PM CDT 01/27/2025 5:35 PM CDT us Jorge L Black MD LAB POCT ORDERABLES - DEV ICE Final Result [facility] [place] [address] * N. gonorrhoeae/C. trachomatis Amplification Urine (01/25/2025 6:37 AM CDT) C. trachomatis Not Detected Not Detected [facility] N. gonorrhoeae Not Detected Not Detected [facility] Comment: Interpretive Data This assay detects Chlamydia trachomatis and Neisseria gonorrhoeae by nucleic acid amplification testing (NAAT). This assay has been cleared by the [place] Food and Drug administration. The performance characteristics of this test have been verified by the [facility] Molecular Infectious Disease laboratory. The performance characteristics of this test have not been evaluated in individuals less than 14 years of age. Current Interpretive Data last revised 2023. Urine (None) 01/25/2025 6:37 AM CDT 01/25/2025 8:15 AM CDT Jorge L Black MD LAB MICROBIOLOGY - GENERA L ORDERABLES Final Result Performing Organization Address [facility] de Phone Number [facility] [place] [address] [facility] * Trichomonas vaginalis PCR Urine (01/25/2025 6:37 AM CDT) Pathologist [facility] Trichomonas DNA Not Detected Not Detected [facility] Urine 01/25/2025 6:37 AM CDT 01/25/2025 8:15 AM CDT Narrative [facility] - 01/25/2025 9:26 AM CDT Interpretive Data: This assay detects Trichomonas vaginalis by nucleic acid amplification testing (NAAT). This assay has been cleared by the [place] Food and Drug administration. The performance characteristics of this test have been verified by the [facility] Molecular Infectious Disease laboratory. Excess blood in specimens may be inhibitory and result in false negative results. The performance of this test has not been evaluated in women or individuals less than 18 years of age. Jorge L Black MD LAB MICROBIOLOGY - GENERA L ORDERABLES Final Result Performing Organization Address [facility] de Phone Number [facility] [place] [address] [facility] * HIV 1/2 Antibody plus p24 Antigen Blood (01/24/2025 1:04 PM CDT) [facility] HIV 1/2 ab + p24 ag Nonreactive [...] L ORDERABLES Final Result Performing Organization Address [facility] Co de Phone Number [facility] [place] [address] * eGFR (01/24/2025 10:46 AM CDT) eGFR [...] ORDERABL ES Final Result Performing Organization Address [facility] Co de Phone Number [facility] [place] [address] * (ABNORMAL) Differential, auto (01/24/2025 10:46 AM CDT) Neutrophil abs 9.95(H) 1.50 - 6.50 K/cumm Imm gran abs 0.12(H) 0.00 - 0.10 K/cumm [facility] Lymphocyte abs 1.44 0.80 - 3.30 K/cumm [facility] Monocyte abs 0.73 0.20 - 0.80 K/cumm [facility] Eosinophil abs 0.02 0.00 - 0.50 K/cumm [facility] Basophil abs 0.03 0.00 - 0.10 K/cumm [facility] Neutrophil pct 81.0 % [facility] Comment: Interpretive Data Percent cell count reference ranges are not reported, since discordance with absolute values may lead to misinterpretation of CBC data. Current Interpretive Data was last revised on 2017. Imm gran pct 1.0 % [facility] Comment: Interpretive Data Percent cell count reference ranges are not reported, since discordance with absolute values may lead to misinterpretation of CBC data. Current Interpretive Data was last revised on 2017. Lymphocyte pct 11.7 % [facility] Comment: Interpretive Data Percent cell count reference ranges are not reported, since discordance with absolute values may lead to misinterpretation of CBC data. Current Interpretive Data was last revised on 2017. Monocyte pct 5.9 % [facility] Comment: Interpretive Data Percent cell count reference ranges are not reported, since discordance with absolute values may lead to misinterpretation of CBC data. Current Interpretive Data was last revised on 2017. Eosinophil pct 0.2 % [facility] Comment: Interpretive Data Percent cell count reference ranges are not reported, since discordance with absolute values may lead to misinterpretation of CBC data. Current Interpretive Data was last revised on 2017. Basophil pct 0.2 % [facility] Comment: Interpretive Data Percent cell count reference ranges are not reported, since discordance with absolute values may lead to misinterpretation of CBC data. Current Interpretive Data was last revised on 2017. Blood 01/24/2025 10:4 6 AM CDT 01/24/2025 11:00 AM CDT Tiny Strange BUSINESS SUPPORT LAB BLOOD ORDERABL ES Final Result Performing Organization Address [facility] Co de Phone Number [facility] [place] [address] * (ABNORMAL) CBC with auto differential (01/24/2025 10:46 AM CDT) WBC 12.29(H) 3.80 - 9.90 K/cumm Hgb 11.2(L) 11.9 - 15.5 g/dL [facility] Hct 32.5(L) 35.6 - 45.5 % [facility] Plt 199 150 - 400 K/cumm [facility] MPV 9.8 9.1 - 12.3 fL [facility] RBC 3.53(L) 3.90 - 5.20 M/cumm [facility] MCV 92.1 81.3 - 96.4 fL [facility] MCH 31.7 27.1 - 33.3 pg [facility] MCHC 34.5 32.3 - 35.7 g/dL [facility] RDW CV 13.7 11.1 - 14.9 % [facility] RDW SD 45.3 35.7 - 48.1 fL [facility] NRBC abs 0.00 0.00 - 0.01 K/cumm [facility] Blood 01/24/2025 10:4 6 AM CDT 01/24/2025 11:00 AM CDT Tiny Strange NP LAB BLOOD ORDERABL ES Final Result [facility] [place] [address] * Group B streptococcal culture Vaginal/Rectal Vaginal (01/24/2025 10:46 AM CDT) Report Final Report: Negative Vaginal/Rectal (Vaginal) 01/24/2025 10:46 AM CDT 01/24/2025 11:50 AM CDT Narrative [facility] - 01/26/2025 9:04 PM CDT Testing performed by [facility] Micro[facility] Laboratory ([phone]). Tiny Strange NP LAB MICROBIOLOGY - GENERAL ORDERABLES Final Result Performing Organization Address [facility] Co de Phone Number [facility] [place] [address] * RPR Blood (01/24/2025 10:46 AM CDT) Pathologist [facility] RPR Nonreactive Nonreactive Blood 01/24/2025 10:4 6 AM CDT 01/24/2025 11:00 AM CDT us Tiny Strange NP LAB MICROBIOLOGY - GENERAL ORDERABLES Final Result Performing Organization Address [facility] de Phone Number [facility] [place] [address] * Type and screen (01/24/2025 10:46 AM CDT) Pathologist [facility] Danial, indirect Negative ABO Rh A Positive [facility] Blood 01/24/2025 10:4 6 AM CDT 01/24/2025 11:19 AM CDT Narrative [facility] - 01/24/2025 12:18 PM CDT Has the patient had Daratumumab or Isatuximab in the past 6 months?->Unknown us Tiny Strange NP LAB BLOOD BANK CURLY T ORDERABLES Final Result Performing Organization Address [facility] [place] [address] * (ABNORMAL) Comprehensive metabolic panel (01/24/2025 10:46 AM CDT) [facility] Sodium 139 135 - 145 mmol/L Potassium, pl 4.0 3.3 - 4.9 mmol/L [facility] Chloride 108 97 - 110 mmol/L [facility] CO2 21(L) 22 - 32 mmol/L [facility] Anion gap 10 2 - 15 mmol/L [facility] BUN 7 6 - 25 mg/dL [facility] Creatinine 0.55(L) 0.60 - 1.10 mg/dL [facility] Glucose 82 70 - 199 mg/dL [facility] Comment: Interpretive Data Fasting glucose >/= 126 [...] 2022. Calcium 8.7 8.5 - 10.3 mg/dL [facility] Bilirubin, total 0.3 0.1 - 1.2 mg/dL [facility] Protein, pl 6.4(L) 6.5 - 8.5 g/dL [facility] Albumin 3.4(L) 3.5 - 5.0 g/dL [facility] Alk phos 118 40 - 130 Units/L [facility] ALT 15 7 - 45 Units/L [facility] AST 24 10 - 45 Units/L [facility] Blood 01/24/2025 10:4 6 AM CDT 01/24/2025 11:00 AM CDT us Tiny Strange NP LAB BLOOD ORDERABL ES Final Result [facility] Department [place] [address] * (ABNORMAL) POCT urinalysis (Clinitek) (01/24/2025 8:56 [...] [facility] pH, ur, POC 7.0 [facility] Comment: Interpretive Data Urine pH is affected by diet, medications, systemic acid-base disturbances, and renal tubular function. pH may affect urinary stone formation. For example, urine pH below 6.0 may help reduce the tendency for calcium phosphate stones and pH greater than 6.0 may reduce the tendency for uric acid stone formation. Source: [facility] [employer]. Last Revised Date: 08-06-2017 Protein, ur, POC Negative Negative [facility] Urobilinogen, ur, POC 0.2 mg/dL mg/dL [facility] Nitrites, ur, POC Negative Negative [facility] Leukocyte esterase, ur, POC Negative Negative [facility] Urine 01/24/2025 8:56 AM CDT 01/24/2025 8:56 AM CDT us Jorge L Black MD LAB POCT ORDERABLES - DEV ICE Final Result [facility] [place] [address] * US Ob Limited (01/24/2025 8:45 AM [...] This demonstrates fetus in vertex presentation with LIYAH 12.35 cm. Narrative 01/24/2025 8:46 AM CDT [facility] BSUS Vertex DVP: 4.2cm LIYAH: 12.35cm us Camila Sutton BUSINESS SUPPORT IMG OB US PROCEDURES Edited R esult [...] tendency for uric acid stone formation. Source: [facility]. Last Revised Date: 08-06-2017 Protein, ur, POC Negative Negative [facility] Urobilinogen, ur, POC 0.2 mg/dL mg/dL [facility] Nitrites, ur, POC Negative Negative [facility] Leukocyte esterase, ur, POC Negative Negative [facility] Urine 01/24/2025 6:51 AM CDT 01/24/2025 6:51 AM CDT us Tiny Quezada MD LAB POCT ORDERABLES - DEVICE Final Result [facility] [facility] Department [place] [address] * Ob Follow Up (01/19/2025 10:50 AM [...] [facility] Glucose, ur, POC Negative Negative [facility] Bilirubin, ur, POC Negative Negative [facility] Ketones, ur, POC Negative Negative [facility] Specific gravity, ur, POC 1.015 1.010 - 1.025 [facility] Blood, ur, POC Trace(A) Negative [facility] pH, ur, POC 7.0 [facility] Comment: Interpretive Data Urine pH is affected by diet, medications, systemic acid-base disturbances, and renal tubular function. pH may affect urinary stone formation. For example, urine pH below 6.0 may help reduce the tendency for calcium phosphate stones and pH greater than 6.0 may reduce the tendency for uric acid stone formation. Source: [facility] Transmit. Last Revised Date: 08-06-2017 Protein, ur, POC Negative Negative [facility] Urobilinogen, ur, POC 0.2 mg/dL mg/dL [facility] Nitrites, ur, POC Negative Negative [facility] Leukocyte esterase, ur, POC 1+(A) Negative [facility] Urine 12/08/2024 9:48 AM CDT 12/08/2024 9:48 AM CDT us Tiny Quezada MD LAB POCT ORDERABLES - DEVICE Final Result [facility] [place] [address] * Hepatitis C antibody Blood (08/16/2024 10:43 AM ABRASIVES SALES REPRESENTATIVE) Hep C Ab NON-REACTI VE NON-REACT IMAN [facility] Comment: HCV antibody was non-reactive. There is no laboratory evidence of HCV infection. In most cases, no further action is required. However, if recent HCV exposure is suspected, a test for HCV RNA (test code 23678) is suggested. For additional information please refer to http://education.Power Content/faq/VVS33w4 (This link is being provided for informational/ educational purposes only.) Blood 08/16/2024 10:4 3 AM ABRASIVES SALES REPRESENTATIVE 08/16/2024 10:44 AM ABRASIVES SALES REPRESENTATIVE us Tiny Quezada MD LAB MICROBIOLOGY - GE NERAL ORDERABLES Final Result [facility] [id number] [id number] * Pap with reflex to High Risk HPV and Genotyping (Cytology Component) (12/22/2023 3:03 PM CDT) Thin prep (Pap test) 12/22/2023 3:03 PM CDT 12/23/2023 3:38 AM CDT Narrative PATHOLOGY [facility] - 12/29/2023 11:05 AM CDT EPIC results best viewed via link to PDF [facility] [place] [address] Note to Patients: This report may contain [...] : 2000 (Age: 23) Address: [facility] [place] [address] Hospital #: [id number] Service: DEFAULT Location: Patient Type: [facility] SPECIMEN Taken: 12/22/2023 Received: 12/23/2023 Accessioned: [...] clinical information and biopsy results as indicated. [facility] Clinical Laboratory Improvement Amendments (CLIA) mandate that cytologic and histologic results be correlated for laboratory water quality control engineer & improvement standards. FOR ALL HIGH-GRADE [...] determined by the Surgical Pathology Department at [facility] as part of an ongoing quality management nurse program and in compliance with federally mandated [...] determined by the Surgical Pathology Department of [facility]. It has not been cleared or approved by the U. S. Food and Drug Administration. Brunilda Winter MD LAB CYTOLOGY ORDERABLES Fi nal Result PATHOLOGY [facility] from Last 3 Months or Most Recently Relevant to Health Maintenance Insurance BLUE ACCESS [employer] BLUE ACCESS CT Advance Directives For more information, please contact: [phone] * Full Code (Latest Code Status on [...] 4:00 AM 05/22/2022 7:06 PM Care Teams Deck Steward Relationship Specialty Start Date End Date Mehreen Saleem NP [address] [address] PCP - General Family Medicine 12/22/23
[2025-02-28 13:22] LABS: Add Urine Microscopic? YES; Appearance Urine Clear (Clear); Glucose Urine UA Negative (Negative); Leukocyte Esterase Ur Trace LEU/UL (Negative); Nitrate Urine Negative (Negative); Non Pathogenic Casts 0-2; Specific Grav Ur 1.024 (1.001-1.035)
[2025-02-28 13:43] LABS: Hematocrit 36.8 % (37.0-47.0); Hemoglobin 12.0 g/dL (12.0-15.0); Immature Granulocyte Percent A 0.3 % (0-0.5); Lymphocytes Absolute Auto 2.12 K/mm3 (0.9-3.2); Mean Corpuscular HGB Conc 32.6 g/dl (32-36); Mean Corpuscular Hemoglobin 29.6 pg (26-34); Mean Corpuscular Volume 90.6 fl (80-100); Nucleated Red Blood Cells Absolute Auto 0.000 K/mm3 (0.0-0.012); Nucleated Red Blood Cells Perc 0.0 % (0.0-0.2); Platelet Count Result 410 k/mm3 (150-375); Red Blood Count 4.06 M/mm3 (4.2-5.4); White Blood Count 5.9 K/mm3 (4.5-10.0)
--- NOTE | 2025-02-28 13:49 | ED_ITS ---
HPI - General Chief complaint: Vaginal Bleeding <SHANIQUE Bragg Last Filed: 02/28/25 18:37> Stated complaint: 2wks , vag bleeding <SHANIQUE Bragg Last Filed: 02/28/25 18:37> Time Seen by Provider: 02/28/25 12:43 <SHANIQUE Bragg Last Filed: 02/28/25 18:37> Source: patient <SHANIQUE Bragg Last Filed: 02/28/25 18:37> Mode of arrival: ambulatory <SHANIQUE Bragg Last Filed: 02/28/25 18:37> Limitations: no limitations <SHANIQUE Bragg Last Filed: 02/28/25 18:37> History of Present Illness HPI Narrative: Patient is a 24-year-old female who presents the ED with report of vaginal bleeding. Patient reports she is approximately 2 weeks status post vaginal delivery. Performed at [facility] with Dr. Brandi Cox. She does report that she had some bleeding immediately some and required manual evacuation. Did not require surgery. She has had mild vaginal bleeding since then, but states this improved by last Thursday. She then developed fairly heavy vaginal bleeding today around noon. She notes she has several large blood clots, about the size of a pad each. She states bleeding has slowed slightly since then. Reports slight cramping/pressure in her lower abdomen. Denies nausea, vomiting, fevers, urinary complaints. <Anna Pichardo PA-C - Last Filed: 02/28/25 18:37> Related Data Home medications: Home Medications ?Medication ?Instructions ?Recorded ?Confirmed ?Last Taken ?Type norethindrone 1 mg-ethinyl tablet 12/05/23 Unknown History estradiol 20 mcg (21)-iron 75 mg (7) tablet (Blisovi Fe 08/15 (28)) <SHANIQUE Bragg Last Filed: 02/28/25 18:37> Allergies/Adverse reactions: Allergies Allergy/AdvReac Type Severity Reaction Status Date / Time Penicillins Allergy Rash Verified 02/28/25 12:54 <Anna Pichardo PA-C - Last Filed: 02/28/25 18:37> Review of Systems 2 Review of Systems: All systems reviewed & are unremarkable except as noted in HPI. <SHANIQUE Bragg Last Filed: 02/28/25 18:37> All systems reviewed & are unremarkable except as noted in HPI and below < Anna Pichardo PA-C - Last Filed: 02/28/25 18:37> Exam 2 Narrative: GENERAL: Well appearing, well-nourished, non-toxic, in no acute distress. HEAD: Normocephalic, atraumatic. RESPIRATORY: Airway patent, respirations nonlabored. Clear to auscultation bilaterally, no rales, rhonchi, wheezing. CARDIOVASCULAR: Regular rate and rhythm ABDOMINAL: Soft, no significant tenderness, nondistended. Normoactive BS. MUSCULOSKELETAL: Moves all extremities. No gross deformities. SKIN: Warm, dry, normal color. NEURO: A&O X3. Speech clear PSYCHIATRIC: Appropriate mood and affect. Normal interaction. <SHANIQUE Bragg Last Filed: 02/28/25 18:37> Course COMMERCIAL HVAC TECHNICIAN/PA Physician Supervision I agree with the notes and management <Jairo Gaona MD - Last Filed: 02/28/25 18:14> Vital Signs Vital signs: Vital Signs Pulse Rate 130 H 02/28/25 12:40 Blood Pressure 126/88 02/28/25 12:40 Pulse Oximetry 17 L 02/28/25 12:40 Oxygen Delivery Room Air 02/28/25 12:40 Temperature 98.2 F 02/28/25 15:25 Pulse Rate 87 02/28/25 17:56 Respiratory Rate 26 H 02/28/25 17:56 Blood Pressure 117/93 H 02/28/25 17:56 Pulse Oximetry 100 02/28/25 17:56 Oxygen Delivery Room Air 02/28/25 12:40 <SHANIQUE Bragg Last Filed: 02/28/25 18:37> Vital Signs Pulse Rate 130 H 02/28/25 12:40 Blood Pressure 126/88 02/28/25 12:40 Pulse Oximetry 17 L 02/28/25 12:40 Oxygen Delivery Room Air 02/28/25 12:40 Temperature 98.2 F 02/28/25 15:25 Pulse Rate 87 02/28/25 17:56 Respiratory Rate 26 H 02/28/25 17:56 Blood Pressure 117/93 H 02/28/25 17:56 Pulse Oximetry 100 02/28/25 17:56 Oxygen Delivery Room Air 02/28/25 12:40 <Jairo Gaona MD - Last Filed: 02/28/25 18:14> MDM - OB/Uterine Contractions MDM Narrative Medical decision making narrative: Patient presented to ED with heavy vaginal bleeding with clots today. Approximately 2 weeks from vaginal delivery. Patient was tachycardic upon arrival, however this was improved by the time of my evaluation. EKG did show sinus rhythm. No concerning ST changes. Laboratory studies without leukocytosis. Stable H&H. CMP is unremarkable. Beta hCG is 6.88. UA with evidence of blood, no signs of infection. Patient's blood type is A positive. Ultrasound was obtained w/ concern for retained products of conception. Will discuss with patient's Ob. She had the delivery with [facility]. Discussed case with Dr. Gibbs, OBGYN w/ MFM, [facility] eval for possible need for evacuation or medications. Patient is in agreement with plan and need for transfer. Patient has been stable throughout ED stay. No evidence of hemodynamic instability. Patient will go by private vehicle. She was offered ambulance transportation and declined. I do feel she is stable for transport via POV. Advised to go directly to [facility], do not eat or drink. In agreement with plan. <Anna Pichardo PA-C - Last Filed: 02/28/25 18:37> Medical Records Attestation: I reviewed the patient's medical records. <Anna Pichardo PA-C - Last Filed: 02/28/25 18:37> Lab Data Attestation: I reviewed the patient's lab results. <Anna Pichardo PA-C - Last Filed: 02/28/25 18:37> Result diagrams: 02/28/25 12:58 02/28/25 12:58 <Anna Pichardo PA-C - Last Filed: 02/28/25 18:37> Labs: Lab Results 02/28/25 Range/Units 12:58 WBC 5.9 (4.5-10.0) K/mm3 RBC 4.06 L (4.2-5.4) M/mm3 Hgb 12.0 (12.0-15.0) g/dL Hct 36.8 L (37.0-47.0) % MCV 90.6 (80-100) fl MCH 29.6 (26-34) pg MCHC 32.6 (32-36) g/dl RDW 12.9 (11.5-14.5) % Plt Count 410 H (150-375) k/mm3 MPV 9.3 (7.4-10.4) fl Immature Gran % (Auto) 0.3 (0-0.5) % Neut % (Auto) 57.6 (45.5-73.1) % Lymph % (Auto) 35.9 (18.3-44.2) % [place] % (Auto) 4.7 (2.6-8.5) % Eos % (Auto) 1.0 (0-4.4) % Baso % (Auto) 0.5 (0.2-1.2) % Lymph # (Auto) 2.12 (0.9-3.2) K/mm3 [place] # (Auto) 0.3 (0.1-0.6) K/mm3 Eos # (Auto) 0.1 (0-0.3) K/mm3 Baso # (Auto) 0.0 (0.0-0.1) K/mm3 Abs Immat Gran (auto) 0.02 (0.00-0.031) K/mm3 Absolute Neuts (auto) 3.4 (1.3-6.7) K/mm3 Absolute Nucleated RBC 0.000 (0.0-0.012) K/mm3 Nucleated RBC % 0.0 (0.0-0.2) % PT 13.0 (11.1-14.7) Seconds INR 1.0 APTT 31.5 (22.3-36.8) Seconds Sodium 139 (137-145) mmol/L Potassium 3.7 (3.4-5.0) mmol/L Chloride 108 H (98-107) mmol/L Carbon Dioxide 20 L (22-30) mmol/L Anion Gap 11 (4-12) mmol/L BUN 13 (7-17) mg/dL Creatinine 0.90 (0.7-1.0) mg/dL Estim Creat Clear Calc 72 ml/min Estimated GFR > 60 (59 - ) Glucose 103 (65-110) mg/dL Calcium 9.5 (8.4-10.2) mg/dL Total Bilirubin 0.6 (0.2-1.3) mg/dL AST 34 (14-36) U/L ALT 24 (6-35) U/L Alkaline Phosphatase 79 (38-126) U/L Total Protein 7.0 (6.3-8.2) g/dL Albumin 4.1 (3.5-5.1) g/dL Beta HCG, Quant 6.88 mIU/ML Urine Color Yellow (Yellow) Urine Appearance Clear (Clear) Urine pH 6.5 (5.0-9.0) Ur Specific [place] 1.024 (1.001-1.035) Urine Protein Negative (Negative) mg/dL Urine Glucose (UA) Negative (Negative) mg/dL Urine Ketones Trace H (Negative) mg/dL Ur Blood (Man) 2+ H (Negative) Urine Nitrate Negative (Negative) Urine Bilirubin Negative (Negative) Urine Urobilinogen 0.2 (<2.0) mg/dL Leukocyte Esterase Rfl Trace H (Negative) ALEXANDER/UL Urine RBC 21-50 H (0-2) /hpf Urine WBC 0-5 (0-3) /hpf Ur Squamous Epith Cells None seen (Few) /hpf Urine Bacteria None seen /hpf Urine Casts 0-2 Blood Type A Positive Antibody Screen Negative Screen Not Reportable Baby's Blood Type Not Reportable Baby's BRYAN Not Reportable Doses of RhIg Required 0 <Anna Pichardo PA-C - Last Filed: 02/28/25 18:37> Lab Results 02/28/25 Range/Units 12:58 WBC 5.9 (4.5-10.0) K/mm3 RBC 4.06 L (4.2-5.4) M/mm3 Hgb 12.0 (12.0-15.0) g/dL Hct 36.8 L (37.0-47.0) % MCV 90.6 (80-100) fl MCH 29.6 (26-34) pg MCHC 32.6 (32-36) g/dl RDW 12.9 (11.5-14.5) % Plt Count 410 H (150-375) k/mm3 MPV 9.3 (7.4-10.4) fl Immature Gran % (Auto) 0.3 (0-0.5) % Neut % (Auto) 57.6 (45.5-73.1) % Lymph % (Auto) 35.9 (18.3-44.2) % [place] % (Auto) 4.7 (2.6-8.5) % Eos % (Auto) 1.0 (0-4.4) % Baso % (Auto) 0.5 (0.2-1.2) % Lymph # (Auto) 2.12 (0.9-3.2) K/mm3 [place] # (Auto) 0.3 (0.1-0.6) K/mm3 Eos # (Auto) 0.1 (0-0.3) K/mm3 Baso # (Auto) 0.0 (0.0-0.1) K/mm3 Abs Immat Gran (auto) 0.02 (0.00-0.031) K/mm3 Absolute Neuts (auto) 3.4 (1.3-6.7) K/mm3 Absolute Nucleated RBC 0.000 (0.0-0.012) K/mm3 Nucleated RBC % 0.0 (0.0-0.2) % PT 13.0 (11.1-14.7) Seconds INR 1.0 APTT 31.5 (22.3-36.8) Seconds Sodium 139 (137-145) mmol/L Potassium 3.7 (3.4-5.0) mmol/L Chloride 108 H (98-107) mmol/L Carbon Dioxide 20 L (22-30) mmol/L Anion Gap 11 (4-12) mmol/L BUN 13 (7-17) mg/dL Creatinine 0.90 (0.7-1.0) mg/dL Estim Creat Clear Calc 72 ml/min Estimated GFR > 60 (59 - ) Glucose 103 (65-110) mg/dL Calcium 9.5 (8.4-10.2) mg/dL Total Bilirubin 0.6 (0.2-1.3) mg/dL AST 34 (14-36) U/L ALT 24 (6-35) U/L Alkaline Phosphatase 79 (38-126) U/L Total Protein 7.0 (6.3-8.2) g/dL Albumin 4.1 (3.5-5.1) g/dL Beta HCG, Quant 6.88 mIU/ML Urine Color Yellow (Yellow) Urine Appearance Clear (Clear) Urine pH 6.5 (5.0-9.0) Ur Specific [place] 1.024 (1.001-1.035) Urine Protein Negative (Negative) mg/dL Urine Glucose (UA) Negative (Negative) mg/dL Urine Ketones Trace H (Negative) mg/dL Ur Blood (Man) 2+ H (Negative) Urine Nitrate Negative (Negative) Urine Bilirubin Negative (Negative) Urine Urobilinogen 0.2 (<2.0) mg/dL Leukocyte Esterase Rfl Trace H (Negative) ALEXANDER/UL Urine RBC 21-50 H (0-2) /hpf Urine WBC 0-5 (0-3) /hpf Ur Squamous Epith Cells None seen (Few) /hpf Urine Bacteria None seen /hpf Urine Casts 0-2 Blood Type A Positive Antibody Screen Negative Screen Not Reportable Baby's Blood Type Not Reportable Baby's BRYAN Not Reportable Doses of RhIg Required 0 <Jairo Gaona MD - Last Filed: 02/28/25 18:14> Imaging Data Attestation: I personally reviewed and interpreted this imaging study as follows: < Anna Pichardo PA-C - Last Filed: 02/28/25 18:37> Radiologist's impression: ITS Impressions Pelvis Ultrasound 02/28/25 16:38 IMPRESSION: 1. Thickened heterogeneous endometrium with internal vascularity measuring 2.4 cm, compatible with retained products of conception. <SHANIQUE Bragg Last Filed: 02/28/25 18:37> Discharge Plan Discharge Clinical Impression: Dysfunctional uterine bleeding, Retained products of conception <SHANIQUE Bragg Last Filed: 02/28/25 18:37> Patient Disposition: Acute Care Hospital <SHANIQUE Bragg Last Filed: 02/28/25 18:37> Condition: Stable <Anna Pichardo PA-C - Last Filed: 02/28/25 18:37> Additional Instructions: GO STRAIGHT TO [facility]. DO NOT MAKE ANY STOPS. DO NOT EAT OR DRINK <Anna Pichardo PA-C - Last Filed: 02/28/25 18:37> Patient Language: Lebanese <Anna Pichardo PA-C - Last Filed: 02/28/25 18:37> Prescriptions: No Action norethindrone-e.estradiol-iron [Blisovi Fe 08/15 (28)] 1 mg-20 mcg (21)/75 mg (7) tablet methylprednisolone [Medrol (Kian)] 4 mg tablets,dose pack See Rx Instructions .ROUTE .COMPLEX Qty: 21 0RF Rx Instructions: orally per package directions <Anna Pichardo PA-C - Last Filed: 02/28/25 18:37> Follow-up/Referrals: Harper,JAMES OsorioP [Primary Care Provider] - <Anna Pichardo PA-C - Last Filed: 02/28/25 18:37> Time of Disposition: 17:39 <Anna Pichardo PA-C - Last Filed: 02/28/25 18:37> 17:39 <Jairo Gaona MD - Last Filed: 02/28/25 18:14>
[2025-02-28 13:54] LABS: INR 1.0; Prothrombin Time 13.0 Seconds (11.1-14.7)
[2025-02-28 13:55] LABS: Alanine Aminotransferase 24 U/L (6-35); Albumin Level 4.1 g/dL (3.5-5.1); Alkaline Phosphatase 79 U/L (38-126); Anion Gap 11 mmol/L (4-12); Aspartate Amino Transferase 34 U/L (14-36); Bilirubin,Total 0.6 mg/dL (0.2-1.3); Blood Urea Nitrogen 13 mg/dL (7-17); Calcium 9.5 mg/dL (8.4-10.2); Carbon Dioxide 20 mmol/L (22-30); Chloride 108 mmol/L (98-107); Estimated CRCL calculation 72 ml/min; Estimated Glomerular Filt Rate > 60; Glucose 103 mg/dL (65-110); Partial Thromboplastin Time 31.5 Seconds (22.3-36.8); Potassium 3.7 mmol/L (3.4-5.0); Sodium 139 mmol/L (137-145); Total Protein 7.0 g/dL (6.3-8.2)
[2025-02-28 14:11] LABS: Beta HCG Quantitative 6.88 mIU/ML
== END 2025-02-28 18:20 | disposition short-term general hospital (02) ==
PROVIDERS: Emergency Provider Physician Assistant; PCP Nurse Practitioner Family
DX: O72.2 Delayed and secondary postpartum hemorrhage (principal); R94.31 Abnormal electrocardiogram [ECG] [EKG]; R00.0 Tachycardia, unspecified
CPT/HCPCS: 36415; 76856; 80053; 81001; 84702; 85025; 85461; 85610; 85730; 86850; 86900; 86901; 93005; 96360; 96361; 99283; 99284; J7030